=== PATIENT | male | born 1985 | race Caucasian/White ===

== ENCOUNTER 2016-12-16 19:24 | Inpatient (IN) ==
--- NOTE | 2016-12-16 19:31 | Emergency Department Note ---
Disposition Clinical Impression: RLQ abdominal pain, Crohn's colitis Disposition: Admitted As Inpatient Condition: Fair Time of Disposition: 21:43 Abdominal Pain HPI - General Chief Complaint: ED Abdominal Pain Stated Complaint: abdominal pain Time Seen by Provider: 12/16/16 19:30 Source: patient Mode of arrival: ambulatory Limitations: no limitations Nursing Notes Reviewed: Yes Vital Signs Reviewed: Yes - History of Present Illness HPI Narrative: 31-year-old male history of Crohn's disease, on no medications, presents complaint of right lower quadrant abdominal pain onset 1-2 weeks ago, pain is worsening for last few hours. Patient has history of Crohn's disease he chronically takes Percocet 5 every 6 hours. Patient states his pain is 8 out of 10, is crampy and achy. He has no associated hematochezia or hematemesis or melena. He has had nausea and vomiting. He denies diarrhea, but has been constipated for the last few days. He also states he has been off obstipated for a day. Pt Subjective Complaint: abdominal pain Onset (ago): hour(s) Location: RLQ Pain Severity: moderate Pain Scale: 8 Quality: cramping, aching Migration to: no migration Improves with: nothing Worsens with: vomiting Associated symptoms: Reports: nausea. Denies: vomiting, diarrhea - Related Data Previous Rx's Medication Instructions Recorded Ciprofloxacin [Cipro] 500 mg PO BID #20 tablet 03/21/16 OxyCODONE/APAP 5/325 [Percocet 1 each PO Q4HR PRN #14 tablet 03/21/16 5/325 MG] predniSONE [PredniSONE] 20 mg PO DAILY #18 tablet 07/08/16 Allergies Allergy/AdvReac Type Severity Reaction Status Date / Time Penicillins [PCN] Allergy Hives Verified 12/16/16 19:25 All systems ED: reviewed and negative except as stated. Review of Systems: As Per HPI Constitutional: Reports: chills. Denies: fever ENT ED: Denies: ear pain Cardiovascular: Denies: chest pain Respiratory: Denies: cough Gastrointestinal: Reports: abdominal pain, nausea, vomiting. Denies: diarrhea, hematemesis, melena, hematochezia Genitourinary: Denies: urgency, dysuria Musculoskeletal: Denies: back pain Integumentary: Denies: rash Neurological: Denies: headache Abdominal Pain PMH - Past Medical History Medical history: Reports: kidney stones, other (Crohn's) Male Surgical History: Reports: other Psychiatric history: Reports: no psych history - Social History Smoking status: Current every day smoker Alcohol use: Reports: none Drug use: Reports: none Physical Exam Constitutional: alert and oriented, in NAD, vital signs reviewed and wnl HEENT: NCAT, sclera anicteric Neck: normal inspection, neck is supple, trachea midline Resp: normal chest inspection, CTA bilaterally, no resp distress CV: RRR, no m/g/r GI: normal inspection, Soft, mod RLQ ttp, wiht rebound, no hepatosplenomegaly, BS x 4 quadrants, negative Niño's Sign, no tenderness at McBurney' point, Negative Rovsing's Back: normal inspection, negative CVA bilaterally, no tenderness to palpation Neuro: A&O3, no gross motor or sensory deficits bilaterally MSK: normal inspection, bilateral UE and LE with normal ROM Skin: No rashes, skin warm, dry, intact - General Limitations: no limitations General appearance: alert Course Course Narrative: 31-year-old male with history of Crohn's disease presents with about a week of right lower quadrant pain, is also had constipation and obstipation, given Crohn 's flare, we will give IV fluids, antiemetics, analgesics and check basic lab work as well as CT scan of abdomen. - Reevaluation(s) Reevaluation #1: Patient still with severe right lower quadrant pain moderate tenderness to palpation with rebound, patient does have concerning signs and symptoms for appendicitis however it has been about a week so they certainly be better by now , the patient had a CT scan but there was no evidence of the appendix on the CT scan, I called the radiologist and they stated that they could not visualize the appendix that they cannot say definitively that there was no appendicitis because of all the information in the distal ileum Time: 21:00 Reevaluation #2: Admitted to medicine Dr Hoffmann Time: 21:43 - Consultations Consultation #1: I discussed with Dr. Pitt the findings in the right lower quadrant, he recommended admission for abdominal pain, serial abdominal exams and surgical consultation as needed, if unable patient's pain under control, otherwise no obvious evidence of appendicitis likely not appendicitis at this time he will be available for consultation Time: 21:20 Vital Signs Temperature 97.8 F 12/16/16 19:25 Pulse Rate 100 12/16/16 19:25 Respiratory Rate 16 12/16/16 19:25 Blood Pressure 122/77 12/16/16 19:25 O2 Sat by Pulse Oximetry 96 12/16/16 19:25 Temperature 98.1 F 12/16/16 23:36 Pulse Rate 80 12/16/16 23:36 Respiratory Rate 16 12/16/16 23:36 Blood Pressure 109/70 12/16/16 23:36 O2 Sat by Pulse Oximetry 94 12/16/16 23:36 Oxygen Delivery Oxygen Delivery Room Air Abdominal Pain - Differential Diagnosis Differential Diagnosis: Likely: acute appendicitis, colonic obstruction, diverticulitis, diverticulosis, endometriosis, gastroenteritis, ischemic bowel - Medical Records Medical records reviewed: Yes I reviewed the patient's medical records. - Lab Data Lab results reviewed: Yes I reviewed the patient's lab results. Result diagrams: 12/16/16 20:05 12/16/16 20:05 Lab Results 12/16/16 12/16/16 12/16/16 Range/Units 19:47 20:05 20:05 WBC 11.2 H (4.3-11.1) K/mcL RBC 4.82 (4.19-5.50) M/mcL Hgb 11.8 L (12.9-16.9) g/dL Hct 37.5 (37.5-50.1) % MCV 77.8 L (83.0-100.0) fL MCH 24.5 L (28.0-33.3) pg MCHC 31.5 L (31.6-35.5) g/dL RDW 15.1 H (11.5-14.5) % Plt Count 411 H (140-400) K/mcL MPV 9.8 (9.4-12.4) fL Immature Gran % 0.4 (0-4) % Seg Neutrophils % 69.5 % Lymphocytes % 21.5 % Monocytes % 7.9 % Eosinophils % 0.4 % Basophils % 0.3 % Neutrophils # 7.8 (1.6-8.9) K/mcL Lymphocytes # 2.4 (0.6-4.6) K/mcL Monocytes # 0.9 (0.0-1.3) K/mcL Eosinophils # 0.0 (0.0-0.6) K/mcL Basophils # 0.0 (0.0-0.2) K/mcL Sodium 137 (136-145) mEq/L Potassium 4.3 (3.5-4.5) mEq/L Chloride 100 (98-109) mEq/L Carbon Dioxide 29 (19-29) mEq/L BUN 11 (8-26) mg/dL Creatinine 0.86 (0.72-1.25) mg/dL Est GFR ( Amer) > 60 (> 60) Est GFR (Non-Af Amer) > 60 (> 60) BUN/Creatinine Ratio 13 (6-26) Glucose 93 (70-99) mg/dL Calculated Osmolality 283 (280-300) Calcium 9.5 (8.6-10.8) mg/dL Total Bilirubin 0.4 (0.2-1.2) mg/dL Direct Bilirubin 0.2 (0.0-0.5) mg/dL Indirect Bilirubin 0.2 (0.0-1.2) mg/dL AST 7 (5-34) Units/L ALT 8 (0-55) Units/L Alkaline Phosphatase 77 (38-126) Units/L Serum Total Protein 7.5 (6.0-8.3) g/dL Albumin 3.0 L (3.5-5.0) g/dL Globulin 4.5 H (2.4-3.5) g/dL Albumin/Globulin Ratio 0.7 L (1.1-2.2) Lipase < 10 (8-78) Units/L Urine Color Coker A (Yellow) Urine Clarity Turbid A (Clear) Urine pH 6.0 (5.0-8.0) pH Units Ur Specific [place] > 1.030 H (1.010-1.025) Urine Protein 30 H (Neg-Trace) mg/dL Urine Glucose (UA) Normal (Normal) mg/dL Urine Ketones Trace H (Negative) mg/dL Urine Blood Small H (Negative) Urine Nitrite Negative (Negative) Urine Bilirubin Small H (Negative) Urine Urobilinogen Normal (Normal) mg/dL Ur Leukocyte Esterase Trace H (Negative) Urine Microscopic RBC 3-5 H (0-3) per hpf Urine Microscopic WBC 5-15 H (0-3) per hpf Ur Squamous Epith Cells Many H (None-Few) per lpf Calcium Oxalate Crystal Present Urine Bacteria Few (None-Few) per hpf Hyaline Casts Moderate H (None-Few) per lpf Urine Mucus Many H (Few) Ur Culture Indicated? YES A (NO) - Radiology Data Radiology results reviewed: Yes I reviewed the patient's radiology results. Abdomen/Pelvis CT 12/16/16 19:39 IMPRESSION: Diffuse wall thickening is noted along the distal/terminal ileum with surrounding inflammatory changes, mesenteric hyperemia, multiple mildly enlarged mesenteric lymph node and mild fluid/edema. Few of the bowel loops proximal to the area of inflammation demonstrate focal areas of dilatation. Overall appearance is similar to prior examination and again suggestive of active Crohn's disease. D/ / James Nassar MD / James Nassar MD Interpreting Provider: James Nassar MD Attestation Statement - Attestation Attestation: I examined this patient and my medical decision-making was reviewed with the Resident Physician. I agree with the documented findings, disposition and treatment plan as described except to the extent set forth below. Male patient with Crohn's disease. Not currently on long acting controller medications or immunosuppressants who presents with worsening abdominal pain. Findings of possible ileitis. The appendix is not visualized. Will admit for serial abdominal examinations. Discussed case with general surgery. I was suspicion for appendicitis however given poor visualization and surrounding inflammation we will admit for further evaluation and possible surgical consultation.
[2016-12-16] MEDS ORDERED: *HR* HYDROmorphone (PF) 1 MG/ML SYRINGE IVP ONE ×2 (19:38→20:43)
[2016-12-16] MEDS ORDERED: 0.9 % Sodium Chloride 1,000 ML IVC ONE (19:38)
[2016-12-16] MEDS ORDERED: Ondansetron 4 MG/2 ML VIAL IVP ONE ×2 (19:38→20:43)
[2016-12-16 19:59] LABS: Bilirubin,Urine Small (Negative); Blood,Urine Small (Negative); Clarity,Urine Turbid (Clear); Color,Urine Orange (Yellow); Glucose,Urine (UA) Normal (Normal); Ketones,Urine Trace mg/dL (Negative); Leukocyte Esterase,Urine Trace (Negative); Nitrite,Urine Negative (Negative); Protein,Urine 30 mg/dL (Neg-Trace); Specific Gravity,Urine > 1.030 (1.010-1.025); Urobilinogen,Urine Normal (Normal)
[2016-12-16 20:01] LABS: Hyaline Casts,Urine Moderate per lpf (None-Few); Squamous Epithelial Cell,Urine Many per lpf (None-Few)
[2016-12-16 20:12] LABS: Basophils % 0.3 %; Eosinophils % 0.4 %; Hematocrit 37.5 % (37.5-50.1); Hemoglobin 11.8 g/dL (12.9-16.9); Immature Granulocytes % 0.4 % (0-4); Lymphocytes # 2.4 K/mcL (0.6-4.6); Lymphocytes % 21.5 %; Mean Corpuscular HGB Conc 31.5 g/dL (31.6-35.5); Mean Corpuscular Hemoglobin 24.5 pg (28.0-33.3); Mean Corpuscular Volume 77.8 fL (83.0-100.0); Mean Platelet Volume 9.8 fL (9.4-12.4); Monocytes # 0.9 K/mcL (0.0-1.3); Monocytes % 7.9 %; Neutrophils # 7.8 K/mcL (1.6-8.9); Platelet Count 411 K/mcL (140-400); Red Blood Count 4.82 M/mcL (4.19-5.50); Red Cell Distribution Width 15.1 % (11.5-14.5); Segmented Neutrophils % 69.5 %
[2016-12-16 20:12] LABS: Bacteria,Urine Few per hpf (None-Few); Calcium Oxalate Crystals,Urine Present; Mucus,Urine Many (Few)
[2016-12-16 20:26] LABS: Alanine Aminotransferase 8 Units/L (0-55); Albumin/Globulin Ratio 0.7 (1.1-2.2); Alkaline Phosphatase 77 Units/L (38-126); Aspartate Amino Transferase 7 Units/L (5-34); BUN/Creatinine Ratio 13 (6-26); Bilirubin,Direct 0.2 mg/dL (0.0-0.5); Bilirubin,Indirect 0.2 mg/dL (0.0-1.2); Bilirubin,Total 0.4 mg/dL (0.2-1.2); Blood Urea Nitrogen 11 mg/dL (8-26); Calcium 9.5 mg/dL (8.6-10.8); Carbon Dioxide 29 mEq/L (19-29); Chloride 100 mEq/L (98-109); Globulin 4.5 g/dL (2.4-3.5); Glucose 93 mg/dL (70-99); Osmolality,Calculated 283 (280-300); Potassium 4.3 mEq/L (3.5-4.5); Sodium 137 mEq/L (136-145); Total Protein 7.5 g/dL (6.0-8.3); eGFR For African Americans > 60 (> 60); eGFR For Non-African Americans > 60 (> 60)
[2016-12-16 20:27] LABS: Lipase < 10 Units/L (8-78)
[2016-12-16] MEDS ORDERED: MetroNIDAZOLE 500 MG/100 ML 500 MG/100 ML BAG IVPB ONE (21:16)
[2016-12-16] MEDS ORDERED: *HR* HYDROcodone/Acet 5/325 mg TABLET PO PRN (21:40)
[2016-12-16] MEDS ORDERED: Acetaminophen 325 MG TABLET PO PRN (21:40)
[2016-12-16] MEDS ORDERED: *HR* Promethazine 25 MG/ML VIAL IVP PRN (21:40)
[2016-12-16] MEDS ORDERED: Naloxone 0.4 MG/ML INJ IVP PRN (21:40)
[2016-12-16] MEDS ORDERED: Ondansetron 4 MG/2 ML VIAL IVP PRN (21:40)
[2016-12-16] MEDS ORDERED: MethylPREDNISolone 40 MG/ML VIAL IVP ONE (21:45)
--- NOTE | 2016-12-16 22:20 | Internal Med History&Physical ---
Date of Encounter: 12/16/16 Time of Encounter: 21:30 Assessment and Plan (1) Acute Crohn's disease Current visit: Yes Status: Acute Will admit the pt into Med Surg Reviewed his CT of Abd - showed diffuse wall thickening is noted along the distal / terminal ileum with surrounding inflammatory changes, mesenteric hyperemia, multiple mildly enlarged lymph node and mild fluid edema - consistent with Crohn's flare up He is in severe pain requiring more frequent pain medication Keep him NPO except sips of water, ice chips IV fluids IV analgesics IV abx Cipro and Flagyl started him on IV steroids Solumedrol 40mg IV BID will consult GI in AM Cont supportive and symptomatic care Qualifiers: Qualified Code(s): K50.90 - Crohn's disease, unspecified, without complications (2) Abdominal pain Current visit: No Status: Acute see above Unable to get good view on Appendix in CT of Abd ER attending already talked to Surgeon Dr. Pitt, who reviewed the CT and does not think acute appendicitis cont supportive care for now Qualifiers: Abdominal location: lower abdomen, unspecified Qualified Code(s): R10.30 - Lower abdominal pain, unspecified (3) Tobacco dependence Current visit: Yes Status: Acute counseled to quit on nicotine patch Internal Medicine - H&P: HPI Chief complaint: Lower abdomen pain Admitted From: Emergency Dept Plans for Post Hospital Care: Home History of present illness: Mr. Sam is a 31 year old male with known history of Crohn's disease, on no medications currently presented to our ER with complaint of right lower quadrant abdominal pain onset 1-2 weeks ago, pain is worsening for last 2 days. Unable to eat anything due to severe pain. Patient has history of Crohn's disease he chronically takes Percocet 5 every 6 hours. Patient states his pain is 8 out of 10, is crampy and achy. He has no associated hematochezia or hematemesis or melena. He has had nausea and vomiting. He denies diarrhea, but has been constipated for the last few days. Past Med Surg Social Fam HX - Past Medical History Medical history: kidney stones, other (Crohn's) Psychiatric history: no psych history - Past Surgical History Surgical History: other (Endoscopies) - Social History Smoking Status: Current every day smoker Smokeless Tobacco Status: No Alcohol use: none Drug use: none - Additional Family History Additional family history: Family hsitory reviewed and non contribuitory to current problem. Internal Medicine - H&P: Meds Ciprofloxacin [Cipro] 500 mg PO BID #20 tablet 03/21/16 [Rx] OxyCODONE/APAP 5/325 [Percocet 5/325 MG] 1 each PO Q4HR PRN #14 tablet 03/21/16 [Rx] predniSONE [PredniSONE] 20 mg PO DAILY #18 tablet 07/08/16 [Rx] 3 Allergy/AdvReac Type Severity Reaction Status Date / Time Penicillins [PCN] Allergy Hives Verified 12/16/16 19:25 All Systems PM: A 10-system review of systems was performed and is negative for pertinent findings except as documented above in the HPI. Review of systems: All the systems are reviewed everything is benign except the systems and symptoms I mentioned in the history of present illness - Constitutional Vitals: Temp Pulse Resp BP Pulse Ox 97.8 F 82 16 109/69 95 12/16/16 19:25 12/16/16 21:55 12/16/16 21:55 12/16/16 21:55 12/16/16 21:55 General appearance: Present: mild distress (due to pain), A&O X 3, answers questions appropriately - Head Head exam: Present: atraumatic, normal inspection - Respiratory Respiratory exam: Present: CTAB. Absent: accessory muscle use, rales, rhonchi, wheezes - Cardiovascular Cardiovascular exam: Present: RRR, +S1, +S2. Absent: diastolic murmur, gallop, rubs, systolic murmur - GI/Abdominal GI/Abdominal exam: Present: hypoactive bowel sounds, soft, tenderness (moderate to severe tenderness in RLQ and brandon umbelical region). Absent: distended, rebound, rigid - Extremities Exam Extremities exam: Absent: calf tenderness, pedal edema, tenderness - Neurological Exam Neurological exam: Present: alert, oriented X3 - Psychiatric Psychiatric exam: Present: depressed - Skin Skin exam: Present: dry Internal Med - H&P Results - Labs CBC & Chem 7: 12/16/16 20:05 12/16/16 20:05
[2016-12-16] MEDS: *HR* HYDROmorphone (PF) 1 MG/ML SYRINGE IVP PRN (22:54)
[2016-12-16] MEDS: D5% in 0.45% NACL 1,000 ML IVC SCH (22:56)
[2016-12-16] MEDS: Nicotine 14 MG PATCH.TD24 TD SCH (22:56)
[2016-12-17] MEDS: *HR* HYDROmorphone (PF) 1 MG/ML SYRINGE IVP PRN ×2 (04:04→08:10)
[2016-12-17 04:08] LABS: Basophils % 0.1 %; Eosinophils % 0.1 %; Hematocrit 36.2 % (37.5-50.1); Hemoglobin 11.6 g/dL (12.9-16.9); Immature Granulocytes % 0.4 % (0-4); Lymphocytes % 7.7 %; Mean Corpuscular Hemoglobin 24.9 pg (28.0-33.3); Mean Corpuscular Volume 77.8 fL (83.0-100.0); Mean Platelet Volume 10.1 fL (9.4-12.4); Monocytes # 0.2 K/mcL (0.0-1.3); Monocytes % 1.6 %; Neutrophils # 12.1 K/mcL (1.6-8.9); Platelet Count 376 K/mcL (140-400); Red Blood Count 4.65 M/mcL (4.19-5.50); Red Cell Distribution Width 15.4 % (11.5-14.5); Segmented Neutrophils % 90.1 %
[2016-12-17 04:19] LABS: Alanine Aminotransferase 8 Units/L (0-55); Albumin 2.8 g/dL (3.5-5.0); Albumin/Globulin Ratio 0.6 (1.1-2.2); Alkaline Phosphatase 72 Units/L (38-126); Aspartate Amino Transferase 9 Units/L (5-34); BUN/Creatinine Ratio 13 (6-26); Bilirubin,Total 0.3 mg/dL (0.2-1.2); Blood Urea Nitrogen 11 mg/dL (8-26); Calcium 9.2 mg/dL (8.6-10.8); Carbon Dioxide 22 mEq/L (19-29); Chloride 104 mEq/L (98-109); Globulin 4.5 g/dL (2.4-3.5); Glucose 186 mg/dL (70-99); Osmolality,Calculated 282 (280-300); Potassium 4.6 mEq/L (3.5-4.5); Sodium 134 mEq/L (136-145); Total Protein 7.3 g/dL (6.0-8.3); eGFR For African Americans > 60 (> 60); eGFR For Non-African Americans > 60 (> 60)
[2016-12-17] MEDS ORDERED: MetroNIDAZOLE 500 MG/100 ML 500 MG/100 ML BAG IVPB SCH (06:00)
[2016-12-17] MEDS ORDERED: Famotidine 20 MG/2 ML VIAL IVP SCH (06:00)
[2016-12-17] MEDS: Nicotine 14 MG PATCH.TD24 TD SCH (07:44)
[2016-12-17] MEDS: D5% in 0.45% NACL 1,000 ML IVC SCH (10:15)
[2016-12-17 10:57] VITALS: BP 103/66
--- NOTE | 2016-12-17 11:55 | Internal Med Progress Note ---
Date of Encounter: 12/17/16 Time of Encounter: 11:53 - Assessment and plan (1) Acute Crohn's disease Current Visit: Yes Status: Acute Assessment and plan: On intravenous steroids and antibiotics. Gastroenterology has been consulted. However, patient reports that he has a family emergency and wishes to leave the hospital. He understands the risks of this decision but he says that he will get admitted if he gets sicker. He will be prescribed a short course of antibiotics and prednisone taper. Qualifiers: Digestive disease complication type: without complication Qualified Code(s) : K50.90 - Crohn's disease, unspecified, without complications (2) Abdominal pain Current Visit: Yes Status: Acute Qualifiers: Abdominal location: lower abdomen, unspecified Qualified Code(s): R10.30 - Lower abdominal pain, unspecified (3) Tobacco dependence Current Visit: Yes Status: Acute - Subjective Interval history: Patient is awake and alert. He reports that his pain is somewhat better but still present. Has not had any new episodes of nausea or vomiting. Did have a bowel movement today. It was mixed with blood. - Constitutional Vitals: Temp Pulse Resp BP Pulse Ox 97.6 F 67 18 103/66 98 12/17/16 10:56 12/17/16 10:56 12/17/16 10:56 12/17/16 10:56 12/17/16 10:56 General appearance: Present: cooperative, mild distress (due to pain), A&O X 3, answers questions appropriately - Respiratory Respiratory exam: Present: CTAB. Absent: accessory muscle use, rales, rhonchi, wheezes - Cardiovascular Cardiovascular exam: Present: RRR, +S1, +S2. Absent: diastolic murmur, gallop, rubs, systolic murmur - GI/Abdominal GI/Abdominal exam: Present: normal bowel sounds, soft, tenderness, no peritoneal signs. Absent: distended - Extremities Exam Extremities exam: Present: warm, radial pulses palpable and symmetrical. Absent : calf tenderness, cyanotic, pedal edema Internal Medicine: Result - Labs CBC & Chem 7: 12/17/16 03:42 12/17/16 03:42 Consult Discharge Plan - Plan Referrals: Albina Marroquin CNP [Primary Care Provider] - (1 week) Jud Pacheco MD [Partnered Physician] - (in 1 week) Prescriptions: Ciprofloxacin [Cipro] 500 mg PO BID #14 tablet metroNIDAZOLE [Flagyl] 500 mg PO TID #21 tablet predniSONE [PredniSONE] 60 mg PO DAILY #90 tablet
== END 2016-12-17 12:25 | disposition left against medical advice (07) | DRG 387 ==
LOC: EMEROO 19:24 → 3ANU 19:24 → SUATTDRO 21:57 → 3ANU 22:12
PROVIDERS: ADMIT Family Medicine; ATTEND Internal Medicine

== ENCOUNTER 2017-03-09 20:54 | Observation (INO) ==
[2017-03-09] MEDS: *HR* HYDROmorphone (PF) 1 MG/ML SYRINGE IVP PRN (21:51)
[2017-03-09] MEDS ORDERED: Ondansetron 4 MG/2 ML VIAL IVP PRN (22:28)
[2017-03-09] MEDS: 0.9 % Sodium Chloride 1,000 ML IVC SCH (23:05)
[2017-03-10] MEDS: *HR* HYDROmorphone (PF) 1 MG/ML SYRINGE IVP PRN ×8 (00:09→22:58)
[2017-03-10] MEDS: MetroNIDAZOLE 500 MG/100 ML 500 MG/100 ML BAG IVPB SCH ×3 (02:01→09:58)
[2017-03-10 05:20] LABS: Basophils % 0.3 %; Eosinophils # 0.1 K/mcL (0.0-0.6); Eosinophils % 0.7 %; Hematocrit 31.5 % (37.5-50.1); Immature Granulocytes % 0.4 % (0-4); Lymphocytes # 2.7 K/mcL (0.6-4.6); Lymphocytes % 24.2 %; Mean Corpuscular HGB Conc 31.7 g/dL (31.6-35.5); Mean Corpuscular Volume 78.8 fL (83.0-100.0); Mean Platelet Volume 10.3 fL (9.4-12.4); Monocytes % 9.3 %; Neutrophils # 7.3 K/mcL (1.6-8.9); Platelet Count 295 K/mcL (140-400); Segmented Neutrophils % 65.1 %
[2017-03-10 05:24] LABS: INR 1.2; Prothrombin Time 13.3 Seconds (9.4-12.1)
[2017-03-10 05:36] LABS: BUN/Creatinine Ratio 11 (6-26); Blood Urea Nitrogen 8 mg/dL (6-20); Calcium 8.5 mg/dL (8.6-10.3); Carbon Dioxide 26 mEq/L (23-29); Chloride 105 mEq/L (98-107); Glucose 84 mg/dL (70-105); Magnesium 1.5 mg/dL (1.6-2.6); Osmolality,Calculated 276 (280-300); Phosphorous 3.5 mg/dL (2.7-4.5); Potassium 4.1 mEq/L (3.5-5.1); Sodium 134 mEq/L (136-145); eGFR For African Americans > 60 (> 60); eGFR For Non-African Americans > 60 (> 60)
[2017-03-10] MEDS: Pantoprazole 40 MG VIAL IVP SCH (06:15)
[2017-03-10] MEDS ORDERED: Naloxone 0.4 MG/ML INJ IVP PRN (09:38)
[2017-03-10] MEDS ORDERED: *HR* Promethazine 25 MG/ML VIAL IVP PRN (09:38)
--- NOTE | 2017-03-10 09:54 | General Surg History&Physical ---
Date of Encounter: 03/10/17 Time of Encounter: 09:45 Assessment and Plan (1) Abdominal pain Current Visit: No Status: Acute The assessment and plan as outlined above was discussed with the patient and/or family members who expressed understanding and agreement. All questions were answered. prn pain control Qualifiers: Abdominal location: right lower quadrant Qualified Code(s): R10.31 - Right lower quadrant pain (2) Tobacco dependence Current Visit: No Status: Chronic The assessment and plan as outlined above was discussed with the patient and/or family members who expressed understanding and agreement. All questions were answered. ok for 7 mg nicotine patch (3) Acute Crohn's disease Current Visit: No Status: Chronic The assessment and plan as outlined above was discussed with the patient and/or family members who expressed understanding and agreement. All questions were answered. discussed with patient CT results and abdominal abscess wbc 11.6 on cipro/flagyl discussed with IR and they will plan to do an IR guided drain for the abscess once drain placed will start heparin sq consult to GI Qualifiers: Digestive disease complication type: with abscess Qualified Code(s): K50.914 - Crohn's disease, unspecified, with abscess (4) Abdominal abscess Current Visit: No Status: Acute The assessment and plan as outlined above was discussed with the patient and/or family members who expressed understanding and agreement. All questions were answered. planning IR drain (5) Leukocytosis Current Visit: Yes Status: Acute The assessment and plan as outlined above was discussed with the patient and/or family members who expressed understanding and agreement. All questions were answered. trend wbc, continue abx Qualifiers: Leukocytosis type: unspecified Qualified Code(s): D72.829 - Elevated white blood cell count, unspecified (6) Nausea and vomiting Current Visit: Yes Status: Acute The assessment and plan as outlined above was discussed with the patient and/or family members who expressed understanding and agreement. All questions were answered. prn zofran and promethazine Qualifiers: Vomiting type: unspecified Qualified Code(s): R11.2 - Nausea with vomiting , unspecified History of Present Illness Chief complaint: nausea/vomiting, abdominal pain HPI: Mr. Sam is a 31 year old male with a known history of Crohn's disease for the last 5 years. Patient was diagnosed with colonoscopy by Dr Pacheco. He has lost his insurance and is currently off any medication for his Crohns. He has been on prednisone in the past. He states his usual symptoms are crampy back pain, constipation and a history of melena. For the last two weeks he has been having RLQ pain which has increased in intensity for the last week. He has had nausea and vomiting, denies diarrhea. He is having pain with urination. No melena or hematochezia. No fevers, chills or night sweats. He presented to ED which showed a 9+ cm RLQ abscess adjacent to the TI Past Med Surg Social Fam HX - Past Medical History Source: patient Medical history: kidney stones, other (Crohns - TI) Psychiatric history: no psych history - Past Surgical History Surgical History: other (lithotripsy and colonoscopy) - Social History Smoking Status: Current every day smoker Smokeless Tobacco Status: No Alcohol use: none Drug use: none Current living situation: Home Activity Level: Independent ambulation - Family History Sister Living Status: Still Living Hx Family Cancer: Yes (BRCA stage 4) Medications and Allergies No Known Home Drugs 03/09/17 [History] 3 Allergy/AdvReac Type Severity Reaction Status Date / Time Penicillins [PCN] Allergy Hives Verified 12/16/16 19:25 Review of Systems All systems PM: reviewed and no additional remarkable complaints except as stated All systems PM: A 10-system review of systems was performed and is negative for pertinent findings except as documented above in the HPI. General Surgery Exam Initial Vital Signs Temp Pulse Resp BP Pulse Ox 100.3 F H 80 15 115/67 97 03/09/17 21:27 03/09/17 21:27 03/09/17 21:27 03/09/17 21:27 03/09/17 21:27 - General physical appearance well developed, well nourished, moderate pain - Eyes PERRL, normal ocular movement - ENT normal mucosa, normocephalic - Neck trachea midline - Respiratory normal respiratory effort, clear to auscultation - Cardiovascular Cardiovascular exam: Present: RRR, no murmurs/rubs/gallops - Abdomen Abdomen general surgery: Present: bowel sounds present, soft, tender (diffusely but worse at RLQ, no abdomimal wall erythema). Absent: distended, guarding, rebound - Integumentary Integumentary general surgery: Present: warm and dry, no abnormal pigmentation - Neurologic Present: CN 2-12 grossly intact - Musculoskeletal Present: normal posture - Psychiatric Psychiatric general surgery: Present: A&Ox3 Results - Labs 03/10/17 04:29 03/10/17 04:29 Abnormal lab results WBC 11.2 K/mcL (4.3-11.1) H 03/10/17 04:29 RBC 4.00 M/mcL (4.19-5.50) L 03/10/17 04:29 Hgb 10.0 g/dL (12.9-16.9) L 03/10/17 04:29 Hct 31.5 % (37.5-50.1) L 03/10/17 04:29 MCV 78.8 fL (83.0-100.0) L 03/10/17 04:29 MCH 25.0 pg (28.0-33.3) L 03/10/17 04:29 RDW 20.0 % (11.5-14.5) H 03/10/17 04:29 PT 13.3 Seconds (9.4-12.1) H 03/10/17 04:29 Sodium 134 mEq/L (136-145) L 03/10/17 04:29 POC Glucose 97 (58-89) H 03/10/17 05:50 Calculated Osmolality 276 (280-300) L 03/10/17 04:29 Calcium 8.5 mg/dL (8.6-10.3) L 03/10/17 04:29 Magnesium 1.5 mg/dL (1.6-2.6) L 03/10/17 04:29 Diabetes panel 03/10/17 Range/Units 04:29 Sodium 134 L (136-145) mEq/L Potassium 4.1 (3.5-5.1) mEq/L Chloride 105 (98-107) mEq/L Carbon Dioxide 26 (23-29) mEq/L BUN 8 (6-20) mg/dL Creatinine 0.74 (0.70-1.30) mg/dL Glucose 84 (70-105) mg/dL Calcium 8.5 L (8.6-10.3) mg/dL Calcium panel 03/10/17 Range/Units 04:29 Calcium 8.5 L (8.6-10.3) mg/dL Phosphorus 3.5 (2.7-4.5) mg/dL Pituitary panel 03/10/17 Range/Units 04:29 Sodium 134 L (136-145) mEq/L Potassium 4.1 (3.5-5.1) mEq/L Chloride 105 (98-107) mEq/L Carbon Dioxide 26 (23-29) mEq/L BUN 8 (6-20) mg/dL Creatinine 0.74 (0.70-1.30) mg/dL Glucose 84 (70-105) mg/dL Calcium 8.5 L (8.6-10.3) mg/dL Adrenal panel 03/10/17 Range/Units 04:29 Sodium 134 L (136-145) mEq/L Potassium 4.1 (3.5-5.1) mEq/L Chloride 105 (98-107) mEq/L Carbon Dioxide 26 (23-29) mEq/L BUN 8 (6-20) mg/dL Creatinine 0.74 (0.70-1.30) mg/dL Glucose 84 (70-105) mg/dL Calcium 8.5 L (8.6-10.3) mg/dL All other labs normal. - Imaging CT scan - abdomen: report reviewed, image reviewed CT scan - pelvis: report reviewed, image reviewed
[2017-03-10] MEDS: 0.9 % Sodium Chloride 1,000 ML IVC SCH ×2 (13:05→23:03)
--- NOTE | 2017-03-10 14:55 | IR Procedure Note ---
Date of procedure: 03/10/17 Consent Obtained: Written consent Timeout: Correct patient and procedure verified, Correct site verified, Time out performed, Skin prep completed Local anesthetic: Lidocaine 1% Indications: RLQ abscess, h/o Chrons dz Procedure Performed: CT guided drain placement Was there an therapeutic recreation assistant present: No Site/Technique: RLQ, 14fr drain placed Results/Findings: 80ml of pus removed. Sample sent to lab. Estimated blood loss (cc): 1 Complications: None; Tolerated procedure well Post Procedure Treatment Plan: Monitoring in VIR Specimen: Sent to lab.
[2017-03-10] MEDS: *HR* Heparin 5,000 UNIT/ML VIAL SQ SCH (18:18)
[2017-03-11] MEDS: MetroNIDAZOLE 500 MG/100 ML 500 MG/100 ML BAG IVPB SCH ×2 (01:37→08:41)
[2017-03-11] MEDS: *HR* HYDROmorphone (PF) 1 MG/ML SYRINGE IVP PRN ×3 (01:41→08:41)
[2017-03-11 04:16] LABS: Basophils % 0.5 %; Eosinophils # 0.1 K/mcL (0.0-0.6); Eosinophils % 1.3 %; Hematocrit 30.2 % (37.5-50.1); Hemoglobin 9.5 g/dL (12.9-16.9); Immature Granulocytes % 0.3 % (0-4); Lymphocytes # 2.7 K/mcL (0.6-4.6); Lymphocytes % 42.5 %; Mean Corpuscular HGB Conc 31.5 g/dL (31.6-35.5); Mean Corpuscular Hemoglobin 24.7 pg (28.0-33.3); Mean Corpuscular Volume 78.4 fL (83.0-100.0); Monocytes # 0.6 K/mcL (0.0-1.3); Monocytes % 9.8 %; Neutrophils # 2.9 K/mcL (1.6-8.9); Platelet Count 302 K/mcL (140-400); Red Blood Count 3.85 M/mcL (4.19-5.50); Red Cell Distribution Width 19.5 % (11.5-14.5); Segmented Neutrophils % 45.6 %
[2017-03-11 04:35] LABS: BUN/Creatinine Ratio 15 (6-26); Blood Urea Nitrogen 10 mg/dL (6-20); Calcium 8.6 mg/dL (8.6-10.3); Carbon Dioxide 25 mEq/L (23-29); Chloride 105 mEq/L (98-107); Glucose 89 mg/dL (70-105); Osmolality,Calculated 277 (280-300); Phosphorous 4.2 mg/dL (2.7-4.5); Potassium 4.3 mEq/L (3.5-5.1); Sodium 134 mEq/L (136-145); eGFR For African Americans > 60 (> 60); eGFR For Non-African Americans > 60 (> 60)
[2017-03-11] MEDS: Pantoprazole 40 MG VIAL IVP SCH (05:01)
[2017-03-11] MEDS: *HR* Heparin 5,000 UNIT/ML VIAL SQ SCH (05:02)
[2017-03-11 11:05] VITALS: BP 103/65
--- NOTE | 2017-03-11 11:19 | General Surgery Progress Note ---
Date of Encounter: 03/11/17 Time of Encounter: 11:16 - Assessment and Plan (1) Acute Crohn's disease Current Visit: No Status: Chronic Qualifiers: Digestive disease complication type: with abscess Qualified Code(s): K50.914 - Crohn's disease, unspecified, with abscess (2) Abdominal abscess Current Visit: No Status: Acute Subjective Patient reports: no new complaints, feels better, still having pain, pain is less, tolerating liquids well, afebrile Objective Vital Signs - Last 8 Hours Temp Pulse Resp BP Pulse Ox 03/11/17 10:51 98.2 F 58 15 103/65 99 03/11/17 06:57 97.8 F 50 15 110/69 97 03/11/17 03:23 98.0 F 56 14 89/54 97 Intake and Output 03/10/17 03/11/17 03/11/17 23:59 07:59 15:59 Intake Total 1540 / 1540 100 / 100 0 / 0 Output Total 1170 / 1170 830 / 830 520 / 520 Balance 370 / 370 -730 / -730 -520 / -520 Intake: IV Fluids 1300 / 1300 100 / 100 0.9 % Sodium Chloride 1,000 ML 1000 / 1000 @ 110 mls/hr IVC .Q9H6M [facility] Rx# :[id number] Cipro Premix 400 MG/200 ML 400 200 / 200 mg In 200 ml @ 200 mls/hr IVPB Q12HR [facility] Rx#:[id number] Flagyl Premix 500 MG/100 ML 500 100 / 100 100 / 100 mg In 100 ml @ 100 mls/hr IVPB Q8H [facility] Rx#:[id number] Oral 240 / 240 0 / 0 0 / 0 Output: Urine 1120 / 1120 800 / 800 500 / 500 Wound Drainage 50 / 50 30 / 30 20 / 20 Right Lower Abdomen 50 / 50 30 / 30 20 / 20 Other: Meal Dinner Breakfast Percent of Meal Consumed 100% 5% Weight 80.3 kg Blood Glucose* 102 Patient Weight 03/11/17 23:59 Weight 80.3 kg - General physical appearance well developed, well nourished, no distress - Eyes normal ocular movement - ENT normocephalic - Respiratory normal expansion, normal respiratory effort - Cardiovascular Cardiovascular exam: Present: RRR - Abdomen Abdomen: Present: soft, non tender Abdominal Tenderness: RLQ (drain in place; no appreciated erythema; appropriatley tender to palpation at insertion site) - Neurologic CN 2-12 grossly intact - Psychiatric oriented to time, oriented to person, oriented to place - Labs 03/11/17 03:51 03/11/17 03:51 Diabetes panel 03/11/17 Range/Units 03:51 Sodium 134 L (136-145) mEq/L Potassium 4.3 (3.5-5.1) mEq/L Chloride 105 (98-107) mEq/L Carbon Dioxide 25 (23-29) mEq/L BUN 10 (6-20) mg/dL Creatinine 0.65 L (0.70-1.30) mg/dL Glucose 89 (70-105) mg/dL Calcium 8.6 (8.6-10.3) mg/dL Calcium panel 03/11/17 Range/Units 03:51 Calcium 8.6 (8.6-10.3) mg/dL Phosphorus 4.2 (2.7-4.5) mg/dL Pituitary panel 03/11/17 Range/Units 03:51 Sodium 134 L (136-145) mEq/L Potassium 4.3 (3.5-5.1) mEq/L Chloride 105 (98-107) mEq/L Carbon Dioxide 25 (23-29) mEq/L BUN 10 (6-20) mg/dL Creatinine 0.65 L (0.70-1.30) mg/dL Glucose 89 (70-105) mg/dL Calcium 8.6 (8.6-10.3) mg/dL Adrenal panel 03/11/17 Range/Units 03:51 Sodium 134 L (136-145) mEq/L Potassium 4.3 (3.5-5.1) mEq/L Chloride 105 (98-107) mEq/L Carbon Dioxide 25 (23-29) mEq/L BUN 10 (6-20) mg/dL Creatinine 0.65 L (0.70-1.30) mg/dL Glucose 89 (70-105) mg/dL Calcium 8.6 (8.6-10.3) mg/dL
--- NOTE | 2017-03-11 11:24 | Discharge Summary ---
Date of Encounter: 03/11/17 Time of Encounter: 11:19 - Discharge Diagnosis (1) Acute Crohn's disease Priority: Primary Status: Chronic Comments: 31M with crohn's disease complicated by abscess s/p IR drainage; afebrile; normal white count; only tender at drain insertion site; only purulent- sanguinous draiange; - SLIV - advance diet as tolerated - change to PO abx: levaquin and flagyl x 13 days - follow up in clinic in 2 weeks with GI (gul) and Dr. Ellison Qualifiers: Digestive disease complication type: with abscess Qualified Code(s): K50.914 - Crohn's disease, unspecified, with abscess (2) Abdominal abscess Priority: Primary Status: Acute Comments: see above - Discharge Medications Prescriptions: levoFLOXacin [Levaquin] 750 mg PO PREOP 13 Days #13 tablet metroNIDAZOLE [Flagyl] 500 mg PO TID 13 Days #39 tablet Home Medications: levoFLOXacin [Levaquin] 750 mg PO PREOP 13 Days #13 tablet 03/11/17 [Rx] metroNIDAZOLE [Flagyl] 500 mg PO TID 13 Days #39 tablet 03/11/17 [Rx] Allergies/Adverse Reactions: 3 Allergy/AdvReac Type Severity Reaction Status Date / Time Penicillins [PCN] Allergy Hives Verified 12/16/16 19:25 General Surgery Exam Initial Vital Signs Temp Pulse Resp BP Pulse Ox 100.3 F H 80 15 115/67 97 03/09/17 21:27 03/09/17 21:27 03/09/17 21:27 03/09/17 21:27 03/09/17 21:27 - General physical appearance well developed, well nourished, no distress - Eyes normal ocular movement - Neck no lymphadectomy - Respiratory normal expansion, normal respiratory effort - Cardiovascular Cardiovascular exam: Present: RRR - Abdomen Abdomen general surgery: Present: soft, non tender Abdominal Tenderness: Present: RLQ (TTP at insertion site; no appreciated erythema) - Integumentary Integumentary general surgery: Present: warm and dry - Neurologic Present: CN 2-12 grossly intact - Musculoskeletal Present: other (FROM in UE/LE bilaterally) - Psychiatric Psychiatric general surgery: Present: A&Ox3 Date of admission: 03/09/17 21:05 Consults: 03/10/17 09:43 Consult to Interventional Radiology [CONS] Stat Consulting Provider: Radiology Interventional Cols Reason for Consult: abdominal/wall abscess Time Notified: 09:46 Call Completed: Yes 03/10/17 09:57 Consult to Gastroenterology [CONS] Routine Consulting Provider: Gastroenterology Jaida Reason for Consult: medical management crohns Time Notified: 09:58 Call Completed: Yes Discharging clinician: Alberto Pitt Anticipated date of discharge: 03/11/17 - Patient Status Disposition: Home, Self-Care Condition: Good Overall status at discharge: patient is progressing back to baseline - Discharge Instructions Follow Up With: Lea Ellison MD [Partnered Physician] - 03/22/17 Jud Pacheco MD [Partnered Physician] - 03/22/17 Additional Instructions: if you begin to experience fevers, chills, nausea, vomiting, redness at drain site, chest pain, shortness of breath, dizziness, significant abdominal pain, or any symptoms you feel warrant evaluation please call the office, report to [facility] urgent care of ED, or come to [place] [facility] make your appointments for [address] Ellison and Tara. - Diet and Activity Activity: resume usual activities as tolerated Diet: advance to your usual diet - Hospital Course Hospital course: Mr. Sam is a 31 year old male - Time Spent with Patient Total time spent providing and/or coordinating discharge services: Greater than 30 minutes Labs on day of discharge: Labs from last 24 hours 03/11/17 03/11/17 03/10/17 03:51 03:51 17:35 WBC 6.4 RBC 3.85 L Hgb 9.5 L Hct 30.2 L MCV 78.4 L MCH 24.7 L MCHC 31.5 L RDW 19.5 H Plt Count 302 MPV 10.0 Immature Gran % 0.3 Seg Neutrophils % 45.6 Lymphocytes % 42.5 Monocytes % 9.8 Eosinophils % 1.3 Basophils % 0.5 Neutrophils # 2.9 Lymphocytes # 2.7 Monocytes # 0.6 Eosinophils # 0.1 Basophils # 0.0 Sodium 134 L Potassium 4.3 Chloride 105 Carbon Dioxide 25 BUN 10 Creatinine 0.65 L Est GFR ( Amer) > 60 Est GFR (Non-Af Amer) > 60 BUN/Creatinine Ratio 15 Glucose 89 POC Glucose 102 H Calculated Osmolality 277 L Calcium 8.6 Phosphorus 4.2 Magnesium 2.0 03/10/17 12:11 WBC RBC Hgb Hct MCV MCH MCHC RDW Plt Count MPV Immature Gran % Seg Neutrophils % Lymphocytes % Monocytes % Eosinophils % Basophils % Neutrophils # Lymphocytes # Monocytes # Eosinophils # Basophils # Sodium Potassium Chloride Carbon Dioxide BUN Creatinine Est GFR ( Amer) Est GFR (Non-Af Amer) BUN/Creatinine Ratio Glucose POC Glucose 87 Calculated Osmolality Calcium Phosphorus Magnesium Preliminary micro results at discharge 03/10/17 14:45 Body Fluid Culture - Preliminary Peritoneal Fluid
--- NOTE | 2017-03-12 10:52 | Event Note ---
Date of Encounter: 03/12/17 Time of Encounter: 10:50 Infection control report with the results of peritoneal Gram stain. Escherichia coli resistant to Levaquin. Patient discharged on Levaquin. Information faxed to discharging provider Dr. Pitt
== END 2017-03-11 13:20 | disposition home or self-care (01) ==
LOC: 3ANU
PROVIDERS: ADMIT Surgery; ATTEND Surgery
PROC: IRDRAIN (2017-03-10 13:55)

== ENCOUNTER 2017-05-18 11:30 | Inpatient (IN) ==
[2017-05-18] MEDS ORDERED: Lidocaine -MPF 1% 2 ML VIAL INFILT ONE (12:19)
[2017-05-18] MEDS ORDERED: D10% in Water 500 ML IVC PRN (12:57)
[2017-05-18 13:39] LABS: Basophils % 0.3 %; Eosinophils % 0.1 %; Hematocrit 35.9 % (37.5-50.1); Hemoglobin 11.2 g/dL (12.9-16.9); Immature Granulocytes % 0.6 % (0-4); Lymphocytes # 1.2 K/mcL (0.6-4.6); Lymphocytes % 12.9 %; Mean Corpuscular HGB Conc 31.2 g/dL (31.6-35.5); Mean Corpuscular Hemoglobin 23.7 pg (28.0-33.3); Mean Corpuscular Volume 75.9 fL (83.0-100.0); Mean Platelet Volume 9.6 fL (9.4-12.4); Monocytes # 0.6 K/mcL (0.0-1.3); Monocytes % 6.2 %; Neutrophils # 7.3 K/mcL (1.6-8.9); Nucleated Red Blood Cells 0.2 /100 WBC (0); Platelet Count 432 K/mcL (140-400); Red Blood Count 4.73 M/mcL (4.19-5.50); Red Cell Distribution Width 15.2 % (11.5-14.5); Segmented Neutrophils % 79.9 %
[2017-05-18 13:55] LABS: Phosphorous 3.5 mg/dL (2.7-4.5)
[2017-05-18 13:56] LABS: BUN/Creatinine Ratio 14 (6-26); Blood Urea Nitrogen 11 mg/dL (6-20); Calcium 9.1 mg/dL (8.6-10.3); Carbon Dioxide 26 mEq/L (23-29); Chloride 104 mEq/L (98-107); Glucose 88 mg/dL (70-105); Osmolality,Calculated 277 (280-300); Potassium 4.2 mEq/L (3.5-5.1); Sodium 134 mEq/L (136-145); eGFR For African Americans > 60 (> 60); eGFR For Non-African Americans > 60 (> 60)
[2017-05-18] MEDS ORDERED: Acetaminophen 325 MG TABLET PO PRN (13:59)
--- NOTE | 2017-05-18 14:21 | General Surg History&Physical ---
<Kateryna Carroll - Last Filed: 05/18/17 14:41> Date of Encounter: 05/18/17 Time of Encounter: 14:12 Assessment and Plan (1) Crohn's disease with abscess Current Visit: Yes Status: Acute The assessment and plan as outlined above was discussed with the patient and/or family members who expressed understanding and agreement. All questions were answered. Admit to the hospital for surgical preparation for planned diagnostic laparoscopy, possible robotic ileocecectomy, possible open with Dr. Ellison on 02/2018. Continue IV Cipro and Flagyl PICC TPN G.I. and DVT prophylaxis supportive care and discomfort management incentive spirometry and PRN duonebs. Will change to schedule duonebs in the preoperative setting on Sunday. Regular diet and protein supplementation, NPO after midnight on Sunday for surgery. PRN antiemetics intra-abdominal abscess pigtail drain care: do not flush drain. Keep MILAD bulb to suction. Accurate I&O ambulate in halls at least TID Qualifiers: Gastrointestinal tract location: unspecified location Qualified Code(s): K50.914 - Crohn's disease, unspecified, with abscess (2) Severe protein-calorie malnutrition Current Visit: Yes Status: Acute The assessment and plan as outlined above was discussed with the patient and/or family members who expressed understanding and agreement. All questions were answered. PICC TPN Nutritional supplements Consult dietary weight loss since 05/15/2016 noted approximately 2 1/2 kg and a 27 kg gram weight loss since March 2016 (3) Tobacco dependence Current Visit: Yes Status: Chronic The assessment and plan as outlined above was discussed with the patient and/or family members who expressed understanding and agreement. All questions were answered. Smoking cessation encouraged incentive spirometry breathing treatments (4) Nausea and vomiting Current Visit: No Status: Acute The assessment and plan as outlined above was discussed with the patient and/or family members who expressed understanding and agreement. All questions were answered. See assessment and plan above Qualifiers: Vomiting type: unspecified Vomiting Intractability: unspecified Qualified Code(s): R11.2 - Nausea with vomiting, unspecified History of Present Illness Chief complaint: abdominal pain, weight loss, nausea, draining pus from abdomen HPI: Mr. Sam is a 31 year old male has a past medical history of kidney stones, Crohn's disease, TK D, intra-abdominal abscess, colonoscopy 2013, kidney stones in 2014, abdominal abscess with interventional radiology guided drain placement 02/2017. He has a smoking history of half pack per day for 9 years, denies alcohol or illicit drug use. He presented to the hospital as a direct admission for surgical preparation for upcoming planned diagnostic laparoscopy, possible robotic ileocecectomy, possible open with Dr. Ellison. Patient has a long-standing history of nonadherence to the medical regimen and ability to make follow-up appointments due to social situations (i.e. his mother is the person responsible for getting him to and from appointments as he does not drive, and she also cares for her daughter who has stage IV metastatic breast cancer which requires several trips a week to the [facility] in addition to caring for her grandchildren). He He saw Dr. Ellison on 04/27/2017 at which time he was noted to show for follow-up for his Crohn's abscess/drain placement. At that time he complained of continued abdominal pain and stated he was having a Crohn's flare. He had not tried to make it to the recommend G.I. appointments stating that he had just gotten his insurance. He states he' s also was having intermittent nausea without emesis, no appetite, weight loss of which he was unable to quantify, and stated he emptied the drain at least twice daily, did not measure it each time but reported cloudy Salas and foul- smelling drainage. He was noted to have made a trip to the emergency department on 04/19/2017 which showed the abdominal wall abscess was significantly smaller after drain placement. At that appointment he was again recommended to restart Bactrim, have follow-up labs in a small bowel follow- through with [facility] and made a referral to G.I. In follow-up, he saw Dr. Bravo on 05/11/2017 at which time he was noted to have seen G.I. who started him on Flagyl, and noted that since taking the antibiotics his drainage had decreased. He was recommended to present to the hospital on May 18 in the a.m. for direct admission to have a PIC line placed, start TPN for his significant weight loss and malnutrition, and undergo surgical procedure as detailed above on May 21. Presently, he endorses lack of appetite, weight loss, remains unable to quantify , nausea, vomiting, abdominal pain in the low abdomen worse with activity and related to the drain, chronic sharp stabbing abdominal pain which he relates to his Crohn's disease, generalized fatigue, and drainage in his pigtail drain of approximately "1 to 2 balls of pus" daily. He denies headache, dizziness, lightheadedness, syncope, near syncope, fever, chills, diarrhea, constipation, or urinary symptoms. Past Med Surg Social Fam HX - Past Medical History Source: patient, old records reviewed Medical history: GERD, kidney stones, other (Crohn's disease and intra- abdominal abscess) Psychiatric history: no psych history - Past Surgical History Surgical History: other (Intra-abdominal abscess drain placement 2017, kidney stone) - Social History Smoking Status: Current every day smoker Packs per day: 1/2 pack/day Smokeless Tobacco Status: No Alcohol use: none Drug use: none Occupational status: unemployed Current living situation: With Family Activity Level: Independent ambulation Recent Out of Country Travel Within the Last 8 Weeks: No Exposure or Possible Exposure to Illness During Travel: No - Family History Sister Living Status: Still Living Hx Family Cancer: Yes (BRCA stage 4) Medications and Allergies Ciprofloxacin [Cipro] 500 mg PO BID 05/18/17 [History] metroNIDAZOLE [Flagyl] 500 mg PO BID 05/18/17 [History] 3 Allergy/AdvReac Type Severity Reaction Status Date / Time NSAIDS (Non-Steroidal Allergy Severe Abdominal Verified 05/19/17 10:08 Anti-Inflamma Pain Penicillins [PCN] Allergy Hives Verified 05/18/17 12:07 Review of Systems All systems PM: reviewed and no additional remarkable complaints except as stated All systems PM: The remainder of the systems were reviewed and are negative General Surgery Exam Initial Vital Signs Temp Pulse Resp BP Pulse Ox 98.9 F 93 16 95/60 99 05/18/17 11:50 05/18/17 11:50 05/18/17 11:50 05/18/17 11:50 05/18/17 11:50 VITAL SIGNS: Reviewed. See [facility] GENERAL: In no apparent distress. Resting with eyes closed upon my entry of the room. HEENT: Normocephalic, atraumatic, pupils are equal and reactive, extraocular motions intact, oropharynx is pink and moist, there is no neck adenopathy or JVD noted. CHEST/RESPIRATORY: The thorax is free from signs of trauma. Lung sounds: clear to auscultation, normal respiratory effort CARDIAC: Regular rate and rhythm. Normal S1 and S2, without murmurs, gallops, or rubs. VASCULAR: No Edema. 2+ peripheral pulses. ABDOMEN: soft, tender diffusely, MILAD pigtail in place with moderate amount of purulent foul-smelling drainage. There are no signs of trauma. Normoactive bowel sounds. MUSCULOSKELETAL: Good range of motion of all major joints. Extremities without clubbing, cyanosis or edema. NEUROLOGIC EXAM: Alert and oriented x 3. Speech normal. Follows commands. PSYCHIATRIC: Mood normal. SKIN: No rash or lesions. Results - Labs 05/18/17 13:11 05/18/17 13:11 Abnormal lab results Hgb 11.2 g/dL (12.9-16.9) L 05/18/17 13:11 Hct 35.9 % (37.5-50.1) L 05/18/17 13:11 MCV 75.9 fL (83.0-100.0) L 05/18/17 13:11 MCH 23.7 pg (28.0-33.3) L 05/18/17 13:11 MCHC 31.2 g/dL (31.6-35.5) L 05/18/17 13:11 RDW 15.2 % (11.5-14.5) H 05/18/17 13:11 Plt Count 432 K/mcL (140-400) H 05/18/17 13:11 Nucleated RBCs/100 WBC 0.2 /100 WBC (0) H 05/18/17 13:11 Sodium 134 mEq/L (136-145) L 05/18/17 13:11 Calculated Osmolality 277 (280-300) L 05/18/17 13:11 Prealbumin 13.8 mg/dL (17.0-34.0) L 05/18/17 13:11 Diabetes panel 05/18/17 Range/Units 13:11 Sodium 134 L (136-145) mEq/L Potassium 4.2 (3.5-5.1) mEq/L Chloride 104 (98-107) mEq/L Carbon Dioxide 26 (23-29) mEq/L BUN 11 (6-20) mg/dL Creatinine 0.76 (0.70-1.30) mg/dL Glucose 88 (70-105) mg/dL Calcium 9.1 (8.6-10.3) mg/dL Calcium panel 05/18/17 05/18/17 Range/Units 13:11 13:11 Calcium 9.1 (8.6-10.3) mg/dL Phosphorus 3.5 (2.7-4.5) mg/dL Pituitary panel 05/18/17 Range/Units 13:11 Sodium 134 L (136-145) mEq/L Potassium 4.2 (3.5-5.1) mEq/L Chloride 104 (98-107) mEq/L Carbon Dioxide 26 (23-29) mEq/L BUN 11 (6-20) mg/dL Creatinine 0.76 (0.70-1.30) mg/dL Glucose 88 (70-105) mg/dL Calcium 9.1 (8.6-10.3) mg/dL Adrenal panel 05/18/17 Range/Units 13:11 Sodium 134 L (136-145) mEq/L Potassium 4.2 (3.5-5.1) mEq/L Chloride 104 (98-107) mEq/L Carbon Dioxide 26 (23-29) mEq/L BUN 11 (6-20) mg/dL Creatinine 0.76 (0.70-1.30) mg/dL Glucose 88 (70-105) mg/dL Calcium 9.1 (8.6-10.3) mg/dL All other labs normal. <Lea Ellison - Last Filed: 05/19/17 15:51> Date of Encounter: 05/18/17 Assessment and Plan (1) Crohn's disease with abscess Current Visit: Yes Status: Chronic The assessment and plan as outlined above was discussed with the patient and/or family members who expressed understanding and agreement. All questions were answered. will continue abx regular diet then bowel prep on sunday with clears plan OR Sunday start PICC/TPN prn pain control prn antiemetics Qualifiers: Gastrointestinal tract location: unspecified location Qualified Code(s): K50.914 - Crohn's disease, unspecified, with abscess (2) Severe protein-calorie malnutrition Current Visit: Yes Status: Chronic The assessment and plan as outlined above was discussed with the patient and/or family members who expressed understanding and agreement. All questions were answered. start TPN (3) Tobacco dependence Current Visit: Yes Status: Chronic The assessment and plan as outlined above was discussed with the patient and/or family members who expressed understanding and agreement. All questions were answered. (4) Abdominal pain Current Visit: No Status: Acute The assessment and plan as outlined above was discussed with the patient and/or family members who expressed understanding and agreement. All questions were answered. prn pain control no NSAIDS as pt has crohns Qualifiers: Abdominal location: right lower quadrant Qualified Code(s): R10.31 - Right lower quadrant pain (5) Nausea and vomiting Current Visit: No Status: Acute The assessment and plan as outlined above was discussed with the patient and/or family members who expressed understanding and agreement. All questions were answered. prn antiemetics Qualifiers: Vomiting type: unspecified Vomiting Intractability: unspecified Qualified Code(s): R11.2 - Nausea with vomiting, unspecified History of Present Illness HPI: Mr. Sam is a 31 year old male Past Med Surg Social Fam HX - Past Medical History Medical history: other Review of Systems All systems PM: The remainder of the systems were reviewed and are negative General Surgery Exam Initial Vital Signs Temp Pulse Resp BP Pulse Ox 98.9 F 93 16 95/60 99 05/18/17 11:50 05/18/17 11:50 05/18/17 11:50 05/18/17 11:50 05/18/17 11:50 - General physical appearance well developed, moderate distress, moderate pain, cachectic, chronically ill - Eyes PERRL, normal ocular movement - ENT normal mucosa, normocephalic - Neck trachea midline - Respiratory normal expansion, clear to auscultation - Cardiovascular Cardiovascular exam: Present: RRR - Abdomen Abdomen general surgery: Present: bowel sounds present, soft, tender. Absent: distended, guarding, rebound Abdominal Tenderness: Present: RLQ - Integumentary Integumentary general surgery: Present: warm and dry, no abnormal pigmentation - Neurologic Present: CN 2-12 grossly intact - Musculoskeletal Present: normal gait, normal posture - Psychiatric Psychiatric general surgery: Present: A&Ox3, speech is normal Results - Labs 05/18/17 13:11 05/19/17 03:30 Abnormal lab results Hgb 11.2 g/dL (12.9-16.9) L 05/18/17 13:11 Hct 35.9 % (37.5-50.1) L 05/18/17 13:11 MCV 75.9 fL (83.0-100.0) L 05/18/17 13:11 MCH 23.7 pg (28.0-33.3) L 05/18/17 13:11 MCHC 31.2 g/dL (31.6-35.5) L 05/18/17 13:11 RDW 15.2 % (11.5-14.5) H 05/18/17 13:11 Plt Count 432 K/mcL (140-400) H 05/18/17 13:11 Nucleated RBCs/100 WBC 0.2 /100 WBC (0) H 05/18/17 13:11 Creatinine 0.67 mg/dL (0.70-1.30) L 05/19/17 03:30 POC Glucose 120 (58-89) H 05/19/17 12:00 Prealbumin 13.8 mg/dL (17.0-34.0) L 05/18/17 13:11 Diabetes panel 05/19/17 Range/Units 03:30 Sodium 136 (136-145) mEq/L Potassium 4.2 (3.5-5.1) mEq/L Chloride 107 (98-107) mEq/L Carbon Dioxide 26 (23-29) mEq/L BUN 10 (6-20) mg/dL Creatinine 0.67 L (0.70-1.30) mg/dL Glucose 102 (70-105) mg/dL Calcium 9.1 (8.6-10.3) mg/dL Triglycerides 74 (< 150) mg/dL Calcium panel 05/19/17 Range/Units 03:30 Calcium 9.1 (8.6-10.3) mg/dL Phosphorus 3.9 (2.7-4.5) mg/dL Pituitary panel 05/19/17 Range/Units 03:30 Sodium 136 (136-145) mEq/L Potassium 4.2 (3.5-5.1) mEq/L Chloride 107 (98-107) mEq/L Carbon Dioxide 26 (23-29) mEq/L BUN 10 (6-20) mg/dL Creatinine 0.67 L (0.70-1.30) mg/dL Glucose 102 (70-105) mg/dL Calcium 9.1 (8.6-10.3) mg/dL Adrenal panel 05/19/17 Range/Units 03:30 Sodium 136 (136-145) mEq/L Potassium 4.2 (3.5-5.1) mEq/L Chloride 107 (98-107) mEq/L Carbon Dioxide 26 (23-29) mEq/L BUN 10 (6-20) mg/dL Creatinine 0.67 L (0.70-1.30) mg/dL Glucose 102 (70-105) mg/dL Calcium 9.1 (8.6-10.3) mg/dL All other labs normal. - Attending Attestation I have personally performed a face to face evaluation on this patient. I have reviewed and agree with the care plan. History and Exam by me shows:
[2017-05-18] MEDS ORDERED: Ipratropium/Albuterol Neb 3 ML IH PRN (14:24)
[2017-05-18] MEDS ORDERED: Ibuprofen 600 MG TABLET PO PRN (14:39)
[2017-05-18] MEDS: MetroNIDAZOLE 500 MG/100 ML 500 MG/100 ML BAG IVPB SCH ×2 (15:10→21:12)
[2017-05-18] MEDS: *HR* HYDROcodone/Acet 7.5/325 mg TABLET PO PRN ×2 (15:10→21:12)
[2017-05-18] MEDS ORDERED: Clinimix E 5%-15% SOLUTION 2,000 ML with MVI, adult with vitamin K 10 ML IVC SCH (17:00)
[2017-05-19 04:34] LABS: BUN/Creatinine Ratio 15 (6-26); Blood Urea Nitrogen 10 mg/dL (6-20); Calcium 9.1 mg/dL (8.6-10.3); Carbon Dioxide 26 mEq/L (23-29); Chloride 107 mEq/L (98-107); Glucose 102 mg/dL (70-105); Magnesium 2.2 mg/dL (1.6-2.6); Osmolality,Calculated 281 (280-300); Phosphorous 3.9 mg/dL (2.7-4.5); Potassium 4.2 mEq/L (3.5-5.1); Sodium 136 mEq/L (136-145); Triglycerides 74 mg/dL (< 150); eGFR For African Americans > 60 (> 60); eGFR For Non-African Americans > 60 (> 60)
[2017-05-19] MEDS: MetroNIDAZOLE 500 MG/100 ML 500 MG/100 ML BAG IVPB SCH ×3 (05:16→21:23)
[2017-05-19] MEDS: Pantoprazole 40 MG VIAL IVP SCH (07:34)
[2017-05-19] MEDS: *HR* HYDROcodone/Acet 7.5/325 mg TABLET PO PRN (07:37)
[2017-05-19] MEDS ORDERED: *HR* LORazepam 0.5 MG TABLET PO ONE (10:01)
[2017-05-19] MEDS: *HR* OxyCODONE Oral Soln 5 MG/5 ML UD.LIQ PO PRN ×4 (10:46→22:12)
--- NOTE | 2017-05-19 16:07 | General Surgery Progress Note ---
Date of Encounter: 05/19/17 Time of Encounter: 10:00 - Assessment and Plan (1) Crohn's disease with abscess Current Visit: Yes Status: Chronic plan OR sunday regulard diet today clears tomorrow with bowel prep antibiotics continue prn pain control - will change to oxycodone Qualifiers: Gastrointestinal tract location: unspecified location Qualified Code(s): K50.914 - Crohn's disease, unspecified, with abscess (2) Severe protein-calorie malnutrition Current Visit: Yes Status: Chronic continue TPN (3) Tobacco dependence Current Visit: Yes Status: Chronic pulmonary toilet IS (4) Abdominal pain Current Visit: No Status: Acute prn pain control NO NSAIDS Qualifiers: Abdominal location: right lower quadrant Qualified Code(s): R10.31 - Right lower quadrant pain (5) Anxiety Current Visit: Yes Status: Acute start prn ativan Subjective Patient reports: no new complaints, still having pain, tolerating a regular diet , voiding w/o difficulty, flatus, no bowel movement, afebrile Objective Vital Signs - Last 8 Hours Temp Pulse Resp BP Pulse Ox 05/19/17 15:41 98.2 F 86 15 122/76 99 05/19/17 11:57 97.6 F 72 16 125/63 100 Intake and Output 05/19/17 05/19/17 05/19/17 07:59 15:59 23:59 Intake Total 1439 / 1439 732 / 732 Output Total 600 / 600 400 / 400 Balance 839 / 839 332 / 332 Intake: IV Fluids 1319 / 1319 492 / 492 Clinimix E 5%-15% SOLUTION 2, 769 / 769 192 / 192 000 ML @ 50 mls/hr IVC .Q24H [facility] with M.v.i. Adult 10 ml Rx# :[id number] Cipro Premix 400 MG/200 ML 400 200 / 200 200 / 200 mg In 200 ml @ 200 mls/hr IVPB Q12H [facility] Rx#:[id number] Intralipid 20% 250 ML @ 21 mls/ 250 / 250 hr IVPB DAILY@1700 [facility] Rx#: [id number] Flagyl Premix 500 MG/100 ML 500 100 / 100 100 / 100 mg In 100 ml @ 100 mls/hr IVPB Q8H [facility] Rx#:[id number] Oral 120 / 120 240 / 240 Output: Urine 600 / 600 400 / 400 Wound Drainage 0 / 0 0 / 0 Right Lower Abdomen 0 / 0 0 / 0 Other: # Voids 0 1 Weight 83.416 kg Blood Glucose* 118 107 Patient Weight 05/19/17 23:59 Weight 83.416 kg - General physical appearance moderate distress, moderate pain, cachectic, chronically ill - Eyes PERRL, normal ocular movement - ENT normal mucosa, normocephalic - Neck Neck exam: trachea midline - Respiratory normal expansion, normal respiratory effort, clear to auscultation - Cardiovascular Cardiovascular exam: Present: RRR - Abdomen Abdomen: Present: bowel sounds present, soft, tender. Absent: guarding, rebound Abdominal Tenderness: RLQ Additional Comments: MILAD drain with purulent drainage - Integumentary no rash, no growths - Neurologic CN 2-12 grossly intact - Musculoskeletal normal posture - Psychiatric oriented to time, oriented to person, oriented to place, memory intact, other ( tearful and crying) - Labs 05/18/17 13:11 05/19/17 03:30 BMP 05/19/17 Range/Units 03:30 Sodium 136 (136-145) mEq/L Potassium 4.2 (3.5-5.1) mEq/L Chloride 107 (98-107) mEq/L Carbon Dioxide 26 (23-29) mEq/L BUN 10 (6-20) mg/dL Creatinine 0.67 L (0.70-1.30) mg/dL Glucose 102 (70-105) mg/dL Calcium 9.1 (8.6-10.3) mg/dL Vital Signs Temp Pulse Resp BP Pulse Ox 05/19/17 15:41 98.2 F 86 15 122/76 99 05/19/17 11:57 97.6 F 72 16 125/63 100 05/19/17 07:25 98.2 F 65 14 112/66 99 05/19/17 04:21 98.2 F 65 14 107/68 97 05/18/17 23:36 98.3 F 91 14 102/61 97 05/18/17 20:00 98.3 F 78 14 99/63 95 05/18/17 19:41 97 Intake and Output 05/19/17 05/19/17 05/19/17 07:59 15:59 23:59 Intake Total 1439 / 1439 732 / 732 Output Total 600 / 600 400 / 400 Balance 839 / 839 332 / 332 Intake: IV Fluids 1319 / 1319 492 / 492 Clinimix E 5%-15% SOLUTION 2, 769 / 769 192 / 192 000 ML @ 50 mls/hr IVC .Q24H [facility] with M.v.i. Adult 10 ml Rx# :[id number] Cipro Premix 400 MG/200 ML 400 200 / 200 200 / 200 mg In 200 ml @ 200 mls/hr IVPB Q12H [facility] Rx#:[id number] Intralipid 20% 250 ML @ 21 mls/ 250 / 250 hr IVPB DAILY@1700 [facility] Rx#: [id number] Flagyl Premix 500 MG/100 ML 500 100 / 100 100 / 100 mg In 100 ml @ 100 mls/hr IVPB Q8H [facility] Rx#:[id number] Oral 120 / 120 240 / 240 Output: Urine 600 / 600 400 / 400 Wound Drainage 0 / 0 0 / 0 Right Lower Abdomen 0 / 0 0 / 0 Other: # Voids 0 1 Weight 83.416 kg Blood Glucose* 118 107 Patient Weight 05/19/17 23:59 Weight 83.416 kg Consult Discharge Plan - Plan Referrals: Albina Marroquin, CREDIT DEPARTMENT MANAGER [Primary Care Provider] -
[2017-05-19] MEDS ORDERED: Clinimix E 5%-20% SOLUTION 2,000 ML with MVI, adult with vitamin K 10 ML IVC SCH (17:00)
[2017-05-19] MEDS: *HR* LORazepam 0.5 MG TABLET PO PRN (17:59)
[2017-05-20] MEDS: *HR* LORazepam 0.5 MG TABLET PO PRN ×3 (03:42→20:14)
[2017-05-20] MEDS: *HR* OxyCODONE Oral Soln 5 MG/5 ML UD.LIQ PO PRN ×5 (03:42→20:14)
[2017-05-20 05:04] LABS: Basophils % 0.3 %; Eosinophils # 0.1 K/mcL (0.0-0.6); Eosinophils % 0.8 %; Hematocrit 34.5 % (37.5-50.1); Hemoglobin 10.9 g/dL (12.9-16.9); Immature Granulocytes % 0.6 % (0-4); Lymphocytes # 2.2 K/mcL (0.6-4.6); Lymphocytes % 24.5 %; Mean Corpuscular HGB Conc 31.6 g/dL (31.6-35.5); Mean Corpuscular Hemoglobin 23.6 pg (28.0-33.3); Mean Corpuscular Volume 74.8 fL (83.0-100.0); Mean Platelet Volume 9.5 fL (9.4-12.4); Monocytes # 0.9 K/mcL (0.0-1.3); Monocytes % 9.6 %; Neutrophils # 5.7 K/mcL (1.6-8.9); Platelet Count 424 K/mcL (140-400); Red Blood Count 4.61 M/mcL (4.19-5.50); Red Cell Distribution Width 15.1 % (11.5-14.5); Segmented Neutrophils % 64.2 %
[2017-05-20] MEDS: MetroNIDAZOLE 500 MG/100 ML 500 MG/100 ML BAG IVPB SCH ×3 (05:43→22:09)
[2017-05-20 06:07] LABS: BUN/Creatinine Ratio 15 (6-26); Blood Urea Nitrogen 10 mg/dL (6-20); Carbon Dioxide 25 mEq/L (23-29); Chloride 107 mEq/L (98-107); Glucose 95 mg/dL (70-105); Magnesium 2.1 mg/dL (1.6-2.6); Osmolality,Calculated 281 (280-300); Phosphorous 3.9 mg/dL (2.7-4.5); Sodium 136 mEq/L (136-145); eGFR For African Americans > 60 (> 60); eGFR For Non-African Americans > 60 (> 60)
[2017-05-20] MEDS: Pantoprazole 40 MG VIAL IVP SCH (07:35)
[2017-05-20] MEDS ORDERED: Polyethylene Glycol 3350 255 GM POWDER PO ONE (09:00)
[2017-05-20] MEDS ORDERED: Ondansetron 4 MG/2 ML VIAL ONE (11:03)
--- NOTE | 2017-05-20 11:22 | General Surgery Progress Note ---
<Yamileth Carlson - Last Filed: 05/20/17 11:35> Date of Encounter: 05/20/17 Time of Encounter: 11:19 - Assessment and Plan (1) Crohn's disease with abscess Current Visit: Yes Status: Chronic 31-year-old male with PMH of Crohn's disease with abdominal abscess S/P IR guided drain placement in February 2017 here for surgical preparation for planned diagnostic laparoscopy, possible robotic ileocecectomy, possible open with Dr. Ellison on 05/21/2017. -plan OR tomorrow -CLD diet and bowel prep today. -NPO midnight -continue Abx, TPN -pain control -will add anti-emetic zofran Qualifiers: Gastrointestinal tract location: unspecified location Qualified Code(s): K50.914 - Crohn's disease, unspecified, with abscess (2) Abdominal pain Current Visit: No Status: Acute No NSAIDS -prn oxycodone Qualifiers: Abdominal location: right lower quadrant Qualified Code(s): R10.31 - Right lower quadrant pain (3) Severe protein-calorie malnutrition Current Visit: Yes Status: Chronic -TPN (4) Anxiety Current Visit: Yes Status: Acute -prn ativan (5) Tobacco dependence Current Visit: Yes Status: Chronic IS, pulmonary toilet Subjective Patient reports: no new complaints, still having pain, tolerating liquids well, voiding w/o difficulty, flatus, nausea, afebrile Objective Vital Signs - Last 8 Hours Temp Pulse Resp BP Pulse Ox 05/20/17 08:04 98 05/20/17 07:20 98 F 72 14 105/65 98 05/20/17 04:16 98.3 F 70 16 115/70 97 Intake and Output 05/19/17 05/20/17 05/20/17 22:59 07:59 15:59 Intake Total 120 / 120 Output Total 700 / 700 Balance -580 / -580 Intake: IV Fluids Clinimix E 5%-15% SOLUTION 2, 000 ML @ 50 mls/hr IVC .Q24H [facility] with M.v.i. Adult 10 ml Rx# :[id number] Clinimix E 5%-20% SOLUTION 2, 000 ML @ 70 mls/hr IVC .Q24H [facility] with M.v.i. Adult 10 ml Rx# :[id number] Intralipid 20% 250 ML @ 21 mls/ hr IVPB DAILY@1700 [facility] Rx#: [id number] Flagyl Premix 500 MG/100 ML 500 mg In 100 ml @ 100 mls/hr IVPB Q8H [facility] Rx#:[id number] Oral 120 / 120 Output: Urine 700 / 700 Wound Drainage 0 / 0 Right Lower Abdomen 0 / 0 Other: Meal Percent of Meal Consumed # Voids Weight Blood Glucose* Patient Weight 05/21/17 00:59 Weight 83 kg - General physical appearance moderate distress, moderate pain, cachectic, chronically ill - Eyes normal ocular movement - ENT normocephalic, CN 2-12 grossly intact - Neck Neck exam: trachea midline - Respiratory normal expansion, normal respiratory effort, clear to auscultation - Cardiovascular Cardiovascular exam: Present: RRR, no murmurs/rubs/gallops - Abdomen Abdomen: Present: bowel sounds present, soft. Absent: guarding, rebound, peritoneal Abdominal Tenderness: RLQ, diffusely Additional Comments: MILAD drain with purulent drainage. - Integumentary no rash - Neurologic CN 2-12 grossly intact, normal coordination - Musculoskeletal normal posture - Psychiatric oriented to time, oriented to person, oriented to place, speech is normal, memory intact - Labs 05/20/17 04:00 05/20/17 04:50 Diabetes panel 05/20/17 Range/Units 04:50 Sodium 136 (136-145) mEq/L Potassium 4.0 (3.5-5.1) mEq/L Chloride 107 (98-107) mEq/L Carbon Dioxide 25 (23-29) mEq/L BUN 10 (6-20) mg/dL Creatinine 0.66 L (0.70-1.30) mg/dL Glucose 95 (70-105) mg/dL Calcium 9.0 (8.6-10.3) mg/dL Calcium panel 05/20/17 Range/Units 04:50 Calcium 9.0 (8.6-10.3) mg/dL Phosphorus 3.9 (2.7-4.5) mg/dL Pituitary panel 05/20/17 Range/Units 04:50 Sodium 136 (136-145) mEq/L Potassium 4.0 (3.5-5.1) mEq/L Chloride 107 (98-107) mEq/L Carbon Dioxide 25 (23-29) mEq/L BUN 10 (6-20) mg/dL Creatinine 0.66 L (0.70-1.30) mg/dL Glucose 95 (70-105) mg/dL Calcium 9.0 (8.6-10.3) mg/dL Adrenal panel 05/20/17 Range/Units 04:50 Sodium 136 (136-145) mEq/L Potassium 4.0 (3.5-5.1) mEq/L Chloride 107 (98-107) mEq/L Carbon Dioxide 25 (23-29) mEq/L BUN 10 (6-20) mg/dL Creatinine 0.66 L (0.70-1.30) mg/dL Glucose 95 (70-105) mg/dL Calcium 9.0 (8.6-10.3) mg/dL Consult Discharge Plan - Plan Referrals: Albina Marroquin, INS[employer]IE [Primary Care Provider] - <Lea Ellison - Last Filed: 05/20/17 13:23> Date of Encounter: 05/20/17 - Assessment and Plan (1) Crohn's disease with abscess Current Visit: Yes Status: Chronic clears today, npo midnight bowel prep today plan OR tomorrow continue abx prn pain control prn anxiety medication continue tpn Qualifiers: Gastrointestinal tract location: unspecified location Qualified Code(s): K50.914 - Crohn's disease, unspecified, with abscess (2) Severe protein-calorie malnutrition Current Visit: Yes Status: Chronic (3) Tobacco dependence Current Visit: Yes Status: Chronic (4) Abdominal pain Current Visit: No Status: Acute Qualifiers: Abdominal location: right lower quadrant Qualified Code(s): R10.31 - Right lower quadrant pain (5) Anxiety Current Visit: Yes Status: Acute Subjective Patient reports: no new complaints, still having pain, pain is less, tolerating liquids well, voiding w/o difficulty, flatus, nausea, afebrile Objective Vital Signs - Last 8 Hours Temp Pulse Resp BP Pulse Ox 05/20/17 11:15 97.9 F 82 15 143/90 100 05/20/17 08:04 98 05/20/17 07:20 98 F 72 14 105/65 98 Intake and Output 05/19/17 05/20/17 05/20/17 22:59 07:59 15:59 Intake Total 640 / 640 Output Total 750 / 750 Balance -110 / -110 Intake: IV Fluids 280 / 280 Clinimix E 5%-15% SOLUTION 2, 000 ML @ 50 mls/hr IVC .Q24H [facility] with M.v.i. Adult 10 ml Rx# :[id number] Clinimix E 5%-20% SOLUTION 2, 280 / 280 000 ML @ 70 mls/hr IVC .Q24H [facility] with M.v.i. Adult 10 ml Rx# :[id number] Intralipid 20% 250 ML @ 21 mls/ hr IVPB DAILY@1700 [facility] Rx#: [id number] Flagyl Premix 500 MG/100 ML 500 mg In 100 ml @ 100 mls/hr IVPB Q8H [facility] Rx#:[id number] Oral 360 / 360 Output: Urine 700 / 700 Wound Drainage 50 / 50 Right Lower Abdomen 50 / 50 Other: Meal Percent of Meal Consumed # Voids 0 Weight Blood Glucose* 96 Patient Weight 05/21/17 00:59 Weight 83 kg - General physical appearance moderate pain, cachectic, chronically ill - Eyes PERRL, normal ocular movement - ENT normal mucosa, normocephalic - Neck Neck exam: trachea midline - Respiratory normal expansion, clear to auscultation - Cardiovascular Cardiovascular exam: Present: RRR, no murmurs/rubs/gallops - Abdomen Abdomen: Present: bowel sounds present, soft, tender Abdominal Tenderness: RLQ - Integumentary no rash - Neurologic CN 2-12 grossly intact, normal coordination - Musculoskeletal normal posture - Psychiatric memory intact - Labs 05/20/17 04:00 05/20/17 04:50 Short CBC 05/20/17 Range/Units 04:00 WBC 8.8 (4.3-11.1) K/mcL Hgb 10.9 L (12.9-16.9) g/dL Hct 34.5 L (37.5-50.1) % Plt Count 424 H (140-400) K/mcL Neutrophils # 5.7 (1.6-8.9) K/mcL BMP 05/20/17 Range/Units 04:50 Sodium 136 (136-145) mEq/L Potassium 4.0 (3.5-5.1) mEq/L Chloride 107 (98-107) mEq/L Carbon Dioxide 25 (23-29) mEq/L BUN 10 (6-20) mg/dL Creatinine 0.66 L (0.70-1.30) mg/dL Glucose 95 (70-105) mg/dL Calcium 9.0 (8.6-10.3) mg/dL Vital Signs Temp Pulse Resp BP Pulse Ox 05/20/17 11:15 97.9 F 82 15 143/90 100 05/20/17 08:04 98 05/20/17 07:20 98 F 72 14 105/65 98 05/20/17 04:16 98.3 F 70 16 115/70 97 05/19/17 23:43 98.5 F 72 16 110/73 97 05/19/17 20:22 100 05/19/17 19:47 98.5 F 79 18 111/73 100 05/19/17 15:41 98.2 F 86 15 122/76 99 Intake and Output 05/19/17 05/20/17 05/20/17 22:59 07:59 15:59 Intake Total 640 / 640 Output Total 750 / 750 Balance -110 / -110 Intake: IV Fluids 280 / 280 Clinimix E 5%-15% SOLUTION 2, 000 ML @ 50 mls/hr IVC .Q24H [facility] with M.v.i. Adult 10 ml Rx# :[id number] Clinimix E 5%-20% SOLUTION 2, 280 / 280 000 ML @ 70 mls/hr IVC .Q24H [facility] with M.v.i. Adult 10 ml Rx# :[id number] Intralipid 20% 250 ML @ 21 mls/ hr IVPB DAILY@1700 [facility] Rx#: [id number] Flagyl Premix 500 MG/100 ML 500 mg In 100 ml @ 100 mls/hr IVPB Q8H [facility] Rx#:[id number] Oral 360 / 360 Output: Urine 700 / 700 Wound Drainage 50 / 50 Right Lower Abdomen 50 / 50 Other: Meal Percent of Meal Consumed # Voids 0 Weight Blood Glucose* 96 Patient Weight 05/21/17 00:59 Weight 83 kg - Attending Attestation I examined this patient and my medical decision-making was reviewed with the Resident Physician. I agree with the documented findings, disposition and treatment plan as described except to the extent set forth below.
[2017-05-20] MEDS: Ipratropium/Albuterol Neb 3 ML IH SCH ×3 (16:49→23:41)
[2017-05-20] MEDS: Ondansetron 4 MG/2 ML VIAL IVP PRN (16:53)
[2017-05-20] MEDS ORDERED: Clinimix E 5%-20% SOLUTION 2,000 ML with MVI, adult with vitamin K 10 ML IVC SCH (17:00)
[2017-05-21] MEDS ORDERED: Ringers Solution, Lactated 1,000 ML IVC SCH (00:01)
[2017-05-21] MEDS: Ondansetron 4 MG/2 ML VIAL IVP PRN ×2 (01:04→16:20)
[2017-05-21] MEDS: *HR* OxyCODONE Oral Soln 5 MG/5 ML UD.LIQ PO PRN ×2 (01:04→05:50)
[2017-05-21] MEDS: Ipratropium/Albuterol Neb 3 ML IH SCH (04:20)
[2017-05-21 05:28] LABS: BUN/Creatinine Ratio 17 (6-26); Blood Urea Nitrogen 12 mg/dL (6-20); Calcium 9.1 mg/dL (8.6-10.3); Carbon Dioxide 25 mEq/L (23-29); Chloride 103 mEq/L (98-107); Glucose 101 mg/dL (70-105); Magnesium 2.1 mg/dL (1.6-2.6); Osmolality,Calculated 294 (280-300); Phosphorous 4.6 mg/dL (2.7-4.5); Potassium 3.9 mEq/L (3.5-5.1); Sodium 142 mEq/L (136-145); eGFR For African Americans > 60 (> 60); eGFR For Non-African Americans > 60 (> 60)
[2017-05-21] MEDS: MetroNIDAZOLE 500 MG/100 ML 500 MG/100 ML BAG IVPB SCH ×2 (05:49→22:28)
[2017-05-21] MEDS: *HR* LORazepam 0.5 MG TABLET PO PRN (05:50)
[2017-05-21] MEDS: Pantoprazole 40 MG VIAL IVP SCH (08:00)
--- NOTE | 2017-05-21 09:03 | Anesthesia Evaluation PreOp ---
Date of Encounter: 05/21/17 Time of Encounter: 09:00 - Past History Planned Operation: Diagnostic Lap, possible Robotic Ileostomy Cardiac History: Denies any Significant Hx Pulmonary History: Smoker SUPERVISOR AREA History: Denies Any Significant HX Other Medical History: Other (Crohn's, Malnutrition) Alcohol Use: none Drug use: none Medications and Allergies Ciprofloxacin [Cipro] 500 mg PO BID 05/18/17 [History] metroNIDAZOLE [Flagyl] 500 mg PO BID 05/18/17 [History] 3 Allergy/AdvReac Type Severity Reaction Status Date / Time NSAIDS (Non-Steroidal Allergy Severe Abdominal Verified 05/19/17 10:08 Anti-Inflamma Pain Penicillins [PCN] Allergy Hives Verified 05/18/17 12:07 - Meds/Allergy Pre-op Review Medications Reviewed: Yes Allergies Reviewed: Yes Beta Blockers on Current Med List: No Anesthesia Results - Labs 05/20/17 04:00 05/21/17 04:55 Anesthesia Exam O2 Sat O2 Sat by Pulse Oximetry 100 O2 Sat by Pulse Oximetry 100 O2 Sat by Pulse Oximetry 98 O2 Sat by Pulse Oximetry 100 O2 Sat by Pulse Oximetry 100 O2 Sat by Pulse Oximetry 99 O2 Sat by Pulse Oximetry 99 O2 Sat by Pulse Oximetry 99 O2 Sat by Pulse Oximetry 99 O2 Sat by Pulse Oximetry 100 O2 Sat by Pulse Oximetry 100 Vital Signs Temp Pulse Resp BP Pulse Ox 98.9 F 93 16 95/60 99 05/18/17 11:50 05/18/17 11:50 05/18/17 11:50 05/18/17 11:50 05/18/17 11:50 Height: 5'10 Weight: 182 lbs NPO (# of Hours): MN Pain Scale: 0 - HEENT Pupil (Motor): Pupils equal, EOMI Mallampati: III Teeth: Edentulous Oral Opening: Greater than 3 - SUPERVISOR ARE[employer] LOC: Oriented SUPERVISOR AREA Motor: Normal RUE, Normal LUE, Normal RLE, Normal LLE, Normal Face [employer]PERVISOR [employer] Sensory: Normal: RUE, LUE, RLE, LLE, Face - Cardiac Rhythm: Regular Murmur: None JVD: No Carotid Bruit: No - Pulmonary Breath Sounds: bilateral Clear Respiratory Effort: Symmetrical Anesthesia Assess/Plan ASA Score: 2 Modified Lukas Scale for Level of Consciousness: Cooperative, oriented, and tranquil Anesthetic Plan: General, Regional Monitoring Plan: Standard Monitors Recovery Plan: PACU (Discussed GA, possible TAP Block post op, agrees to proceed )
[2017-05-21] MEDS ORDERED: Albuterol 2.5 MG/3 ML NEBULIZER IH ONE (09:08)
[2017-05-21] MEDS ORDERED: Bupivacaine/Clonidine Syringe 1 EACH SYRINGE ONE (09:24)
[2017-05-21] MEDS ORDERED: Ondansetron 4 MG/2 ML VIAL ONE ×2 (09:28→13:42)
[2017-05-21] MEDS ORDERED: *HR* Rocuronium Bromide 50 MG/5 ML VIAL ONE ×2 (09:28→11:34)
[2017-05-21] MEDS ORDERED: Neostigmine Methylsulfate 3 MG/3 ML SYRINGE ONE (09:28)
[2017-05-21] MEDS ORDERED: *HR* FentaNYL (PF) 100 MCG/2 ML VIAL ONE ×2 (09:29→10:52)
[2017-05-21] MEDS ORDERED: *HR* Midazolam HCl 2 MG/2 ML VIAL ONE (09:29)
[2017-05-21] MEDS ORDERED: *HR* Propofol 200 MG/20 ML VIAL IVP ONE (09:29)
[2017-05-21] MEDS ORDERED: Lidocaine -MPF 2% 2 ML VIAL ONE (09:29)
[2017-05-21] MEDS ORDERED: *HR* Heparin 5,000 UNIT/ML VIAL ONE (10:30)
[2017-05-21] MEDS ORDERED: *HR* PHENYLEPHRINE 1,000 MCG/10 ML SYRINGE IVP ONE (12:05)
--- NOTE | 2017-05-21 13:02 | Operative Note ---
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 Sign in was performed and everyone was in agreement. Anesthesia was induced and patient was endotracheally intubated by anesthesia without incident. Rivas catheter was placed by the circulating nurse. An NG tube was placed by anesthesia. The abdomen was shaved. The abdomen was prepped and draped in the usual sterile fashion. Previous right lower quadrant MILAD drain was prepped as well but kept out of the field. Timeout was performed again everyone was in agreement. Midline incision through the skin into the subcutaneous tissue was made with a 15 blade. We dissected down to the anterior abdominal wall linea alba fascia with the Bovie. [place]'s were placed on either side of the fascia for retraction and the abdomen was entered with the Bovie and the midline fascia incision elongated. A Bookwalter was placed for exposure and retraction. The cecum was identified and the terminal ileum was inflamed very thick, firm, hard, and densely adherent to the anterior abdominal wall. Just below the terminal ileum the distal sigmoid was also inflamed, firm, and densely adherent to the anterior abdominal wall. Both the terminal ileum and sigmoid were taken off the abdominal wall with gentle blunt dissection and the Bovie. The terminal ileum was from the sigmoid with gentle blunt dissection and Metzenbaum scissors. The MILAD drain was not palpable or visible and was well within the abdominal wall. The patient required resection of not only a portion of the sigmoid colon but also the terminal ileum. An area in the distal sigmoid mesentery just below the area involved area of Crohn's inflammation and abscess was opened with the Bovie. The colon was transected with a contour stapler blue load. An area of the sigmoid colon mesentery just above the area of involved Crohn's inflammation and abscess was opened with the Bovie and the colon transected with a linear KANG -75 stapler blue load. The left ureter was located and kept out of harm's way The colon mesentery was then transected with the impact LigaSure and the segment of sigmoid colon was placed off to the back table for pathology after the distal end was marked with a 3-0 silk stitch. An opening in the terminal ileum mesentery just proximal to the area of involved Crohn's abscess and inflammation was opened with the Bovie. The terminal ileum was transected with a linear KANG-75 stapler blue load. The right colon was taken down off the right lateral abdominal wall at the white line of [place]t with the Bovie in a proximal to distal dull direction. The right ureter was located and kept out of harm's way. An opening in the mesentery of the right colon was made just above the cecum with the Bovie. The colon was then transected with a linear KANG -75 stapler blue load. The terminal ileum and cecum mesentery was transected with an impact LigaSure and the specimen was placed off to the back table for pathology. The abdomen was irrigated with sterile saline. A sifr-fn-heeh terminal ileum to right colon anastomosis was made first with a linear KANG-75 stapler blue load creating the common channel and a TX 60 stapler closing the and of the common channel. 3-0 silk tpirly-kl-olrhu stitches were used to re- of proximally the closed end of the common channel. 3-0 silk stitch was placed as a crotch stitch. A 2-0 Prolene idgvlc-xo-rwjda stitch was placed at the proximal transected rectum. [place]'s were placed on the left fascia for retraction. A circular incision through the skin and the subcutaneous tissue several centimeters above the umbilicus and overlying the left lateral aspect of the rectus was made with a 15 blade, and the skin was excised with the Bovie. We dissected to the anterior rectus fascia with the Bovie and a longitudinal incision through the fascia was made with the Bovie area the rectus muscle was split in a longitudinal fashion with a Sindi and the posterior rectus fascia entered. The ostomy opening was then digitally dilated to accommodate 2 fingerbreadths. The sigmoid colon was then pulled up through the colostomy opening with a Panther Burn. The omentum was draped around the ileocolic anastomosis and down into the pelvis. Ely's are placed on either side of the fascia for retraction. The midline fascia was reapproximated with 2 #1 non-looped PDS running stitches meeting in the middle. The subcutaneous tissue was copiously irrigated with sterile saline. The subcutaneous tissue was reapproximated with 3-0 Vicryl interrupted stitches. The skin was closed with harinder. Babcocks were placed over the sigmoid colon staple line and the staple line transected with heavy curved Vargas scissors. There was copious bleeding from the transected edge which was stopped with the Bovie. The colostomy was created with full-thickness colon wall to subcuticular tissue 3-0 Vicryl interrupted stitches. An ostomy appliance was placed. 4 x 4 gauze and Medipore tape were applied to the midline wound. All lap and instrument counts are correct at the end of the case. The patient tolerated the procedure well. He was awoken by anesthesia and extubated in the OR without incident after the NG tube was removed. Rivas catheter remained with the patient after the case. The MILAD drain was secured to the skin with a 2-0 silk stitch. He was taken to PACU in stable condition.
[2017-05-21] MEDS ORDERED: *HR* Promethazine 25 MG/ML VIAL ONE (13:40)
[2017-05-21] MEDS ORDERED: MORPHINE SUL Oral CONC 10 MG/0.5 ML ORAL.SYG ONE (13:45)
[2017-05-21] MEDS ORDERED: *HR* Meperidine 25 MG/ML SYRINGE ONE (13:47)
[2017-05-21] MEDS ORDERED: *HR* Labetalol 20 MG/4 ML SYRINGE IVP PRN (13:48)
[2017-05-21] MEDS ORDERED: MORPHINE SUL Oral CONC 10 MG/0.5 ML ORAL.SYG SL PRN (13:48)
[2017-05-21] MEDS ORDERED: *HR* Promethazine 25 MG/ML VIAL IVP PRN (13:48)
[2017-05-21] MEDS ORDERED: *HR* OxyCODONE Immed Rel 5 MG TABLET PO PRN (13:48)
[2017-05-21] MEDS ORDERED: Scopolamine Patch 1.5 MG PATCH.TD72 ONE (13:57)
--- NOTE | 2017-05-21 14:32 | Anesthesia Evaluation Post Op ---
Date of Encounter: 05/21/17 Time of Encounter: 14:30 - Vital Signs Vital Signs: Vital Signs/O2 Sat/Glucose, Most Current Temp Pulse Resp BP Pulse Ox 05/21/17 14:15 67 13 110/61 100 05/21/17 14:05 97.4 F L 68 13 103/54 100 05/21/17 13:55 82 15 119/55 100 05/21/17 13:45 79 14 119/61 99 05/21/17 13:35 97.1 F L 81 12 101/71 100 - Lungs Lungs: Clear Ascult./Percussion - Airway Airway: Non-obstructed - Cardiovascular Regular Rate - Mental Status Mental Status: Alert & Oriented, Answers Appropriately - Pain Pain Scale: 1 - Nausea Vomiting Nausea Vomiting: Not Present - Hydration Hydration: NPO - Discharge PostOp Status: Transfer Patient to floor
--- NOTE | 2017-05-21 15:04 | Anesthesia Procedures ---
Date of Encounter: 05/21/17 Time of Encounter: 12:59 Procedures: Anesthesia - Nerve Block Procedure Date: 05/21/17 Time: 12:59 Surgical Procedure: open bowel surgery. Checklist: Correct Patient Identifier, Correct procedure, History checked Blood Thinner: Yes (SQ hep. ) Monitor Applied: EKG, BP, Pulse Oximetry Indication: Post Op Analgesia Pre-op Neuro Deficits: No Block Type: Other (subcostal and TAP blocks bilateral. ) Catheter placed: No Sterile Technique: Yes Ultrasound used: Yes Anatomy identified: Yes Visual spread of Local: Yes Neuro Stimulation: No Blood on Needle Aspiration: No Smooth Injection of Local: Yes Pain with Injection of Local: No Prep: Chlorhexadine Needle: 22 x 50 mm Stimuplex, 21 x 100 mm Stimuplex Local: 0.25% Bupivicaine w/Clonidine 20 mcg/cc Volume (cc): 80ml Number of Attempts: 1 Complications: None/effective block Vitals: 80ml of 0.25% bup diluted with 80ml of 0.9% NS. 40ml inj at each site. aseptic tech though out.
[2017-05-21] MEDS ORDERED: *HR* FentaNYL PATCH 25 MCG PATCH TD SCH (15:46)
[2017-05-21] MEDS ORDERED: D10% in Water 500 ML IVC PRN (15:46)
[2017-05-21] MEDS ORDERED: Ipratropium/Albuterol Neb 3 ML IH PRN (15:46)
[2017-05-21] MEDS ORDERED: Clinimix E 5%-20% SOLUTION 2,000 ML with MVI, adult with vitamin K 10 ML IVC SCH ×3 (15:46→17:00)
[2017-05-21] MEDS ORDERED: *HR* OxyCODONE Oral Soln 5 MG/5 ML UD.LIQ PO PRN (15:46)
[2017-05-21] MEDS: Acetaminophen IV 1,000 MG/100 ML INFUS..BTL IVPB SCH ×2 (17:53→23:40)
[2017-05-21] MEDS: OXYCODONE Oral CONC 10 MG/0.5 ML ORAL.SYG SL PRN (17:53)
[2017-05-21] MEDS ORDERED: *HR* HYDROmorphone 20 MG/20 ML PCA IVC PRN (18:26)
[2017-05-21] MEDS ORDERED: 0.9 % Sodium Chloride 500 ML ONE (19:19)
[2017-05-21] MEDS: *HR* Heparin 5,000 UNIT/ML VIAL SQ SCH (19:33)
[2017-05-22] MEDS: MetroNIDAZOLE 500 MG/100 ML 500 MG/100 ML BAG IVPB SCH ×3 (05:57→23:25)
[2017-05-22] MEDS: OXYCODONE Oral CONC 10 MG/0.5 ML ORAL.SYG SL PRN (05:58)
[2017-05-22] MEDS: *HR* Heparin 5,000 UNIT/ML VIAL SQ SCH ×2 (05:58→18:33)
[2017-05-22 06:53] LABS: BUN/Creatinine Ratio 19 (6-26); Blood Urea Nitrogen 12 mg/dL (6-20); Calcium 8.6 mg/dL (8.6-10.3); Carbon Dioxide 26 mEq/L (23-29); Chloride 105 mEq/L (98-107); Glucose 100 mg/dL (70-105); Magnesium 1.9 mg/dL (1.6-2.6); Osmolality,Calculated 280 (280-300); Phosphorous 3.5 mg/dL (2.7-4.5); Potassium 4.4 mEq/L (3.5-5.1); Sodium 135 mEq/L (136-145); eGFR For African Americans > 60 (> 60); eGFR For Non-African Americans > 60 (> 60)
[2017-05-22] MEDS: Pantoprazole 40 MG VIAL IVP SCH (08:32)
--- NOTE | 2017-05-22 08:51 | General Surgery Progress Note ---
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 CBC for today pending. His abdominal exam is as expected for day one postoperatively. Plan: -NPO, await return of bowel function, PICC and TPN -continue supportive care and discomfort management: increased PRN FORM SETTER METAL ROAD FORMS to 0.3 mg Q10 mins max 8 mg Q4H and basal rate 0.5 mg, scheduled Ofirmev, and Fentanyl patch. Apply ice to abdomen for 20 mins Q1H PRN. No NSAIDs. -replace electrolytes as indicated - Continue G.I. and DVT prophylaxis -out of bed to chair at least 3 times daily -EPCDs while in bed -heparin subacute 5000 units b.i.d. -serial abdominal exams -repeat a.m. labs Qualifiers: Gastrointestinal tract location: unspecified location Qualified Code(s): K50.914 - Crohn's disease, unspecified, with abscess (2) Painful respiratory movement Current Visit: Yes Status: Acute Patient with significant smoking history. Will obtain portable CXR. Scheduled duonebs, respiratory consult for aggressive pulmonary toileting, this was reviewed with patient and respiratory per telephone. Will continue to monitor and place further orders as indicated. Portable CXR with atelectasis. Continue previous recommendations. (3) Severe protein-calorie malnutrition Current Visit: Yes Status: Chronic Continue TPN. Repeat a.m. labs NPO, await return of bowel function (4) Depression with anxiety Current Visit: Yes Status: Acute Consult placed to psych for recommendations in the setting of history of depression with anxiety, new unplanned colostomy, social situations including patient is unaware that his girlfriend is reported to have moved the patient and their children out of their home and has also moved in a new partner(as reported per the patient's mother), further social situations include mother is unable to assist in his care at this time because his sister, for whom the mother cares, has stage IV metastatic cancer. Medication, treatment, therapy, recommendations per psych are greatly appreciated. (5) Tobacco dependence Current Visit: Yes Status: Acute See assessment and plan for painful respirations above. Patient noted to have vapor cigarettes at bedside. He is reminded that this is against hospital policy. Patient verbalized understanding. (6) Nausea and vomiting Current Visit: No Status: Acute Qualifiers: Vomiting type: unspecified Vomiting Intractability: unspecified Qualified Code(s): R11.2 - Nausea with vomiting, unspecified Subjective Patient reports: still having pain, voiding w/o difficulty (Per dominguez catheter) , no flatus, no bowel movement, shortness of breath (Pain with breathing (on the left)), afebrile Narrative: Tonio states his abdominal pain makes it difficult to move around. He is not used his incentive spirometry sent surgery as he stated he could not reach it. He reports pain on the left side with deep breathing and productive cough, but he is unable to bring sputum fully up. Objective Vital Signs - Last 8 Hours Temp Pulse Resp BP Pulse Ox 05/22/17 07:21 98.3 F 75 16 109/69 98 05/22/17 04:35 97.7 F 73 14 103/66 98 Intake and Output 05/21/17 05/22/17 05/22/17 23:59 07:59 15:59 Intake Total 200 / 200 220 / 220 550 / 550 Output Total 1000 / 1000 1675 / 1675 Balance -800 / -800 -1455 / -1455 550 / 550 Intake: IV Fluids 200 / 200 100 / 100 550 / 550 Ofirmev 1,000 mg/100 ml 1,000 100 / 100 100 / 100 mg In 100 ml @ 400 mls/hr IVPB Q8HR [facility] Rx#:[id number] Cipro Premix 400 MG/200 ML 400 200 / 200 mg In 200 ml @ 200 mls/hr IVPB Q12H [facility]A Rx#:[id number] Intralipid 20% 250 ML @ 21 mls/ 250 / 250 hr IVPB DAILY@1700 ALY[facility]A Rx#: [id number] Flagyl Premix 500 MG/100 ML 500 100 / 100 100 / 100 mg In 100 ml @ 100 mls/hr IVPB Q8H ALYSSA Rx#:[id number] Oral 0 / 0 120 / 120 Output: Catheter 1000 / 1000 1675 / 1675 Wound Drainage 0 / 0 Right Lower Abdomen 0 / 0 Other: # Bowel Movements 0 Weight 82.962 kg Blood Glucose* 163 124 Patient Weight 05/22/17 23:59 Weight 82.962 kg VITAL SIGNS: Reviewed. No temperature recorded this a.m. See [facility] GENERAL: In mild distress - with guarding posture and holding tightly to the bed rails, states he is unable to move around. HEENT: Normocephalic, atraumatic, pupils are equal and reactive, extraocular motions intact, oropharynx is pink and moist, there is no neck adenopathy or JVD noted. CHEST/RESPIRATORY: The thorax is free from signs of trauma. Lung sounds: course throughout, find crackles noted in the left lower lobe posteriorly. Decreased throughout. Poor inspiratory effort. CARDIAC: Regular rate and rhythm. Normal S1 and S2, without murmurs, gallops, or rubs. VASCULAR: No Edema. 2+ peripheral pulses. ABDOMEN: soft, expected postoperative tenderness, absent bowel sounds as expected, no abnormal discoloration. INCISION: Surgical incision is clean, dry, and intact. There are no signs of cellulitis or infection noted. WOUNDS/DRAINS: 1) MILAD drain is with mixed cloudy and serous fluid. Foul- smelling. Site is within normal limits. 2) stoma is pink and moist, slightly edematous. There is a small amount of bowel sweat noted. There is no flatus noted. MUSCULOSKELETAL: Good range of motion of all major joints. Extremities without clubbing, cyanosis or edema. NEUROLOGIC EXAM: Alert and oriented x 3. Speech normal. Follows commands. PSYCHIATRIC: Mood normal. SKIN: No rash or lesions. - Labs 05/22/17 10:30 05/22/17 06:05 Diabetes panel 05/22/17 Range/Units 06:05 Sodium 135 L (136-145) mEq/L Potassium 4.4 (3.5-5.1) mEq/L Chloride 105 (98-107) mEq/L Carbon Dioxide 26 (23-29) mEq/L BUN 12 (6-20) mg/dL Creatinine 0.64 L (0.70-1.30) mg/dL Glucose 100 (70-105) mg/dL Calcium 8.6 (8.6-10.3) mg/dL Calcium panel 05/22/17 Range/Units 06:05 Calcium 8.6 (8.6-10.3) mg/dL Phosphorus 3.5 (2.7-4.5) mg/dL Pituitary panel 05/22/17 Range/Units 06:05 Sodium 135 L (136-145) mEq/L Potassium 4.4 (3.5-5.1) mEq/L Chloride 105 (98-107) mEq/L Carbon Dioxide 26 (23-29) mEq/L BUN 12 (6-20) mg/dL Creatinine 0.64 L (0.70-1.30) mg/dL Glucose 100 (70-105) mg/dL Calcium 8.6 (8.6-10.3) mg/dL Adrenal panel 05/22/17 Range/Units 06:05 Sodium 135 L (136-145) mEq/L Potassium 4.4 (3.5-5.1) mEq/L Chloride 105 (98-107) mEq/L Carbon Dioxide 26 (23-29) mEq/L BUN 12 (6-20) mg/dL Creatinine 0.64 L (0.70-1.30) mg/dL Glucose 100 (70-105) mg/dL Calcium 8.6 (8.6-10.3) mg/dL - VTE Documentation of Mechanical Device: Intermittent pneumatic compression device Consult Discharge Plan - Plan Referrals: Albina Marroquin, AIRPLANE AND ENGINE INSPECTOR [Primary Care Provider] - <Lea Ellison - Last Filed: 05/22/17 15:35> Date of Encounter: 05/22/17 - Assessment and Plan (1) Crohn's disease with abscess Current Visit: Yes Status: Chronic pt is sp ileocectomy with primary anastomosis and sigmoid resection with colostomy. pain is better controlled with FORM SETTER METAL RO[address] FORMS continue npo until bowel function returns gi/dvt prophylaxis aggressive pulmonary toilet OOB to chair bid/ambulate Qualifiers: Gastrointestinal tract location: unspecified location Qualified Code(s): K50.914 - Crohn's disease, unspecified, with abscess (2) Severe protein-calorie malnutrition Current Visit: Yes Status: Chronic (3) Tobacco dependence Current Visit: Yes Status: Acute (4) Abdominal pain Current Visit: No Status: Acute Qualifiers: Abdominal location: right lower quadrant Qualified Code(s): R10.31 - Right lower quadrant pain (5) Depression with anxiety Current Visit: Yes Status: Acute patient is also drug abuser and per mother injects oxycodone Objective Vital Signs - Last 8 Hours Temp Pulse Resp BP Pulse Ox 05/22/17 14:39 97.7 F 67 16 100/65 98 05/22/17 11:12 97.5 F L 67 16 122/78 98 05/22/17 10:30 98.4 F Intake and Output 05/21/17 05/22/17 05/22/17 23:59 07:59 15:59 Intake Total 200 / 200 220 / 220 650 / 650 Output Total 1000 / 1000 1675 / 1675 1475 / 1475 Balance -800 / -800 -1455 / -1455 -825 / -825 Intake: IV Fluids 200 / 200 100 / 100 650 / 650 Ofirmev 1,000 mg/100 ml 1,000 100 / 100 100 / 100 100 / 100 mg In 100 ml @ 400 mls/hr IVPB Q8H ALYSS[facility] Rx#:[id number] Cipro Premix 400 MG/200 ML 400 200 / 200 mg In 200 ml @ 200 mls/hr IVPB Q12H ALYSSA Rx#:[id number] Intralipid 20% 250 ML @ 21 mls/ 250 / 250 hr IVPB DAILY@1700 ALYSSA Rx#: [id number] Flagyl Premix 500 MG/100 ML 500 100 / 100 100 / 100 mg In 100 ml @ 100 mls/hr IVPB Q8H ALYSSA Rx#:[id number] Oral 0 / 0 120 / 120 0 / 0 Output: Urine 1075 / 1075 Catheter 1000 / 1000 1675 / 1675 400 / 400 Wound Drainage 0 / 0 0 / 0 Right Lower Abdomen 0 / 0 0 / 0 Other: Meal NPO Percent of Meal Consumed 0% # Bowel Movements 0 0 Weight 82.962 kg Blood Glucose* 163 124 116 Patient Weight 05/22/17 23:59 Weight 82.962 kg - Labs 05/22/17 10:30 05/22/17 06:05 Diabetes panel 05/22/17 Range/Units 06:05 Sodium 135 L (136-145) mEq/L Potassium 4.4 (3.5-5.1) mEq/L Chloride 105 (98-107) mEq/L Carbon Dioxide 26 (23-29) mEq/L BUN 12 (6-20) mg/dL Creatinine 0.64 L (0.70-1.30) mg/dL Glucose 100 (70-105) mg/dL Calcium 8.6 (8.6-10.3) mg/dL Calcium panel 05/22/17 Range/Units 06:05 Calcium 8.6 (8.6-10.3) mg/dL Phosphorus 3.5 (2.7-4.5) mg/dL Pituitary panel 05/22/17 Range/Units 06:05 Sodium 135 L (136-145) mEq/L Potassium 4.4 (3.5-5.1) mEq/L Chloride 105 (98-107) mEq/L Carbon Dioxide 26 (23-29) mEq/L BUN 12 (6-20) mg/dL Creatinine 0.64 L (0.70-1.30) mg/dL Glucose 100 (70-105) mg/dL Calcium 8.6 (8.6-10.3) mg/dL Adrenal panel 05/22/17 Range/Units 06:05 Sodium 135 L (136-145) mEq/L Potassium 4.4 (3.5-5.1) mEq/L Chloride 105 (98-107) mEq/L Carbon Dioxide 26 (23-29) mEq/L BUN 12 (6-20) mg/dL Creatinine 0.64 L (0.70-1.30) mg/dL Glucose 100 (70-105) mg/dL Calcium 8.6 (8.6-10.3) mg/dL - Attending Attestation I have personally performed a face to face evaluation on this patient. I have reviewed and agree with the care plan. History and Exam by me shows:
[2017-05-22] MEDS ORDERED: *HR* HYDROmorphone 20 MG/20 ML PCA IVC PRN (09:36)
[2017-05-22] MEDS ORDERED: Naloxone 0.4 MG/ML INJ IVP PRN (10:35)
[2017-05-22 10:42] LABS: Basophils % 0.3 %; Eosinophils # 0.1 K/mcL (0.0-0.6); Eosinophils % 0.8 %; Hematocrit 33.8 % (37.5-50.1); Hemoglobin 10.6 g/dL (12.9-16.9); Immature Granulocytes % 0.5 % (0-4); Lymphocytes # 2.1 K/mcL (0.6-4.6); Lymphocytes % 18.9 %; Mean Corpuscular HGB Conc 31.4 g/dL (31.6-35.5); Mean Corpuscular Hemoglobin 23.9 pg (28.0-33.3); Mean Corpuscular Volume 76.3 fL (83.0-100.0); Mean Platelet Volume 9.3 fL (9.4-12.4); Monocytes # 0.9 K/mcL (0.0-1.3); Monocytes % 7.7 %; Neutrophils # 7.9 K/mcL (1.6-8.9); Nucleated Red Blood Cells 0.3 /100 WBC (0); Platelet Count 399 K/mcL (140-400); Red Blood Count 4.43 M/mcL (4.19-5.50); Red Cell Distribution Width 15.1 % (11.5-14.5); Segmented Neutrophils % 71.8 %
[2017-05-22] MEDS: Acetaminophen IV 1,000 MG/100 ML INFUS..BTL IVPB SCH ×2 (10:53→21:24)
[2017-05-22] MEDS: Ipratropium/Albuterol Neb 3 ML IH SCH ×5 (11:00→23:01)
[2017-05-22] MEDS: *HR* HYDROmorphone 20 MG/20 ML PCA IVC PRN (13:46)
--- NOTE | 2017-05-22 13:58 | Consult Note ---
Date of Encounter: 05/22/17 Time of Encounter: 13:30 Assessment & Recommendation (1) Depression with anxiety Current visit: Yes Status: Acute Assessment & Recommendation: 1. Referral to outpatient mental health for counseling and medication management is recommended 2. I recommend mirtazapine 15 mg at bedtime to be started and evaluated as outpatient. Medication would have the benefit of improving appetite, sleep and treat depression. Thank you for consultation. History of Present Illness Patient: new to practice Requesting Physician: Lea Ellison MD Reason for consult: Depression and anxiety History of present illness: Mr. Sam is a 31 year old male admitted to the hospital for evaluation and treatment of Crohn's disease with abscess and he underwent a procedure open partial sigmoidectomy colostomy ileocecostomy was primary anastomosis. Psychiatric consultation was requested to evaluate for depression and anxiety and recommend medication and treatment. Review of the chart was negative for any history of mental health's treatment or psychiatric treatment in the system. From the record patient had some family related stress and related to separation from his girlfriend and not being able to see his children otherwise he has a history of nicotine dependence. Patient also is treated for severe protein calorie malnutrition with TPN. Labs medication medical records were reviewed. Patient denied having any history of mental health treatment denied having any history of suicidal ideation or plans or attempts he understands that currently he is under stress related to having surgery and in addition to some family stress he believe he would be able to cope with the situation but at the same time he was willing and open to follow recommendation of outpatient treatment or medication. CC: Lea Ellison MD Past Med Surg Social Fam HX - Past Medical History Medical history: other - Past Psychiatric History Psychiatric history: Reports: no psych history - Past Surgical History Surgical History: other (Intra-abdominal abscess drain placement 2017, kidney stone) - Social History Smoking Status: Current every day smoker Smokeless Tobacco Status: No Alcohol use: none Drug use: none - Family History Sister Living Status: Still Living Hx Family Cancer: Yes (BRCA stage 4) Medications & Allergies Ciprofloxacin [Cipro] 500 mg PO BID 05/18/17 [History] metroNIDAZOLE [Flagyl] 500 mg PO BID 05/18/17 [History] 3 Allergy/AdvReac Type Severity Reaction Status Date / Time NSAIDS (Non-Steroidal Allergy Severe Abdominal Verified 05/19/17 10:08 Anti-Inflamma Pain Penicillins [PCN] Allergy Hives Verified 05/18/17 12:07 Review of Systems Psychiatric: Reports: depression, anxiety Psychiatry Exam - Constitutional Vitals: Temp Pulse Resp BP Pulse Ox 97.5 F L 67 16 122/78 98 05/22/17 11:12 05/22/17 11:12 05/22/17 11:12 05/22/17 11:12 05/22/17 11:12 General appearance: age & developmentally appropriate, unkempt, malnourished - Musculoskeletal Gait: normal Station: relaxed Strength & Tone: normal for patient - Psychiatric Patient Orientation: Yes Person, Yes Time, Yes Place Level of alertness: Alert Behavior: calm, cooperative, withdrawn Psychomotor activity: Slowed Eye Contact: Maintains Eye Contact Mood Description: Euthymic/stable, Anxious Affect description: congruent with mood, constricted Speech Volume: Normal Speech pattern: normal rate, normal rhythm, normal tone, fluent, spontaneous Language & Vocabulary: consistent with education, limited Thought Process: Linear, Goal Oriented Thought Content: No Suicidal ideation, No Homicidal ideation, No Overt delusions Perceptual Disturbances: No Auditory hallucinations, No Visual hallucinations Attention Span Ability: Capable of Focused Attention Memory Description: Grossly Intact Patient Reliability: Reliable Historian Fund of knowledge: Yes abstraction ability, Yes aware of current events Intelligence Estimate: Average Judgment: Limited Insight: Partial Results - Labs Labs: Laboratory Last Values WBC 11.0 K/mcL (4.3-11.1) 05/22/17 10:30 RBC 4.43 M/mcL (4.19-5.50) 05/22/17 10:30 Hgb 10.6 g/dL (12.9-16.9) L 05/22/17 10:30 Hct 33.8 % (37.5-50.1) L 05/22/17 10:30 MCV 76.3 fL (83.0-100.0) L 05/22/17 10:30 MCH 23.9 pg (28.0-33.3) L 05/22/17 10:30 MCHC 31.4 g/dL (31.6-35.5) L 05/22/17 10:30 RDW 15.1 % (11.5-14.5) H 05/22/17 10:30 Plt Count 399 K/mcL (140-400) 05/22/17 10:30 MPV 9.3 fL (9.4-12.4) L 05/22/17 10:30 Immature Gran % 0.5 % (0-4) 05/22/17 10:30 Seg Neutrophils % 71.8 % 05/22/17 10:30 Lymphocytes % 18.9 % 05/22/17 10:30 Monocytes % 7.7 % 05/22/17 10:30 Eosinophils % 0.8 % 05/22/17 10:30 Basophils % 0.3 % 05/22/17 10:30 Neutrophils # 7.9 K/mcL (1.6-8.9) 05/22/17 10:30 Lymphocytes # 2.1 K/mcL (0.6-4.6) 05/22/17 10:30 Monocytes # 0.9 K/mcL (0.0-1.3) 05/22/17 10:30 Eosinophils # 0.1 K/mcL (0.0-0.6) 05/22/17 10:30 Basophils # 0.0 K/mcL (0.0-0.2) 05/22/17 10:30 Nucleated RBCs/100 WBC 0.3 /100 WBC (0) H 05/22/17 10:30 Sodium 135 mEq/L (136-145) L 05/22/17 06:05 Potassium 4.4 mEq/L (3.5-5.1) 05/22/17 06:05 Chloride 105 mEq/L (98-107) 05/22/17 06:05 Carbon Dioxide 26 mEq/L (23-29) 05/22/17 06:05 BUN 12 mg/dL (6-20) 05/22/17 06:05 Creatinine 0.64 mg/dL (0.70-1.30) L 05/22/17 06:05 Est GFR ( Amer) > 60 (> 60) 05/22/17 06:05 Est GFR (Non-Af Amer) > 60 (> 60) 05/22/17 06:05 BUN/Creatinine Ratio 19 (6-26) 05/22/17 06:05 Glucose 100 mg/dL (70-105) 05/22/17 06:05 POC Glucose 116 (58-89) H 05/22/17 11:19 Calculated Osmolality 280 (280-300) 05/22/17 06:05 Calcium 8.6 mg/dL (8.6-10.3) 05/22/17 06:05 Phosphorus 3.5 mg/dL (2.7-4.5) 05/22/17 06:05 Magnesium 1.9 mg/dL (1.6-2.6) 05/22/17 06:05 Prealbumin 13.8 mg/dL (17.0-34.0) L 05/18/17 13:11 Triglycerides 74 mg/dL (< 150) 05/19/17 03:30 - Impressions Impressions Chest X-Ray 05/22/17 10:13 IMPRESSION: 1. Mild right hemidiaphragm elevation and right basilar atelectasis. 2. Otherwise, no acute cardiopulmonary abnormality. 3. Small amount of free intraperitoneal gas below the left hemidiaphragm, consistent with provided history of recent abdominal surgery. D/ / Lorne Santiago MD / Lorne Santiago MD Interpreting Provider: Lorne Santiago MD Consult Discharge Plan - Plan Referrals: Albina Marroquin, KAVIN [Primary Care Provider] -
[2017-05-22] MEDS ORDERED: Clinimix E 5%-20% SOLUTION 2,000 ML with MVI, adult with vitamin K 10 ML IVC SCH (17:00)
[2017-05-22] MEDS ORDERED: 0.9 % Sodium Chloride 500 ML ONE (20:52)
[2017-05-23] MEDS: *HR* HYDROmorphone 20 MG/20 ML PCA IVC PRN ×2 (00:18→13:25)
[2017-05-23] MEDS: Acetaminophen IV 1,000 MG/100 ML INFUS..BTL IVPB SCH ×3 (03:09→19:39)
[2017-05-23] MEDS: Ipratropium/Albuterol Neb 3 ML IH SCH ×6 (03:44→23:46)
[2017-05-23 05:49] LABS: BUN/Creatinine Ratio 21 (6-26); Blood Urea Nitrogen 13 mg/dL (6-20); Carbon Dioxide 25 mEq/L (23-29); Chloride 103 mEq/L (98-107); Glucose 75 mg/dL (70-105); Osmolality,Calculated 277 (280-300); Potassium 4.2 mEq/L (3.5-5.1); Sodium 134 mEq/L (136-145); eGFR For African Americans > 60 (> 60); eGFR For Non-African Americans > 60 (> 60)
[2017-05-23] MEDS: MetroNIDAZOLE 500 MG/100 ML 500 MG/100 ML BAG IVPB SCH ×3 (06:38→23:30)
[2017-05-23] MEDS: *HR* Heparin 5,000 UNIT/ML VIAL SQ SCH ×2 (06:38→16:48)
[2017-05-23 09:49] LABS: Basophils % 0.3 %; Eosinophils # 0.2 K/mcL (0.0-0.6); Eosinophils % 1.9 %; Hematocrit 32.8 % (37.5-50.1); Hemoglobin 10.1 g/dL (12.9-16.9); Immature Granulocytes % 0.6 % (0-4); Lymphocytes # 1.6 K/mcL (0.6-4.6); Mean Corpuscular HGB Conc 30.8 g/dL (31.6-35.5); Mean Corpuscular Hemoglobin 23.5 pg (28.0-33.3); Mean Corpuscular Volume 76.5 fL (83.0-100.0); Mean Platelet Volume 9.8 fL (9.4-12.4); Monocytes # 0.7 K/mcL (0.0-1.3); Monocytes % 7.9 %; Neutrophils # 6.4 K/mcL (1.6-8.9); Platelet Count 375 K/mcL (140-400); Red Blood Count 4.29 M/mcL (4.19-5.50); Segmented Neutrophils % 71.3 %
[2017-05-23] MEDS: Pantoprazole 40 MG VIAL IVP SCH (11:52)
--- NOTE | 2017-05-23 12:22 | General Surgery Progress Note ---
Date of Encounter: 05/23/17 Time of Encounter: 12:20 - Assessment and Plan (1) Crohn's disease with abscess Current Visit: Yes Status: Chronic POD #2 Open partial sigmoidectomy, colostomy, ileocectomy with primary anastomosis with Dr. 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 labs Qualifiers: Gastrointestinal tract location: unspecified location Qualified Code(s): K50.914 - Crohn's disease, unspecified, with abscess (2) Depression with anxiety Current Visit: Yes Status: Acute Psych consult complete Recommend mirtazapine 15mg PO at bedtime Outpatient follow-up (3) Tobacco dependence Current Visit: Yes Status: Acute smoking cessation education (4) Severe protein-calorie malnutrition Current Visit: Yes Status: Chronic Continue TPN at goal rate 83.3ml/hour while awaiting return of bowel function Home Help Aide for management of TPN Subjective Patient reports: no new complaints, feels better, still having pain, pain is less, voiding w/o difficulty, no flatus, no bowel movement, afebrile, other ( Denies nausea but admits to belching; out of bed to chair) Objective Vital Signs - Last 8 Hours Temp Pulse Resp BP Pulse Ox 05/23/17 11:04 97.4 F L 78 16 112/72 97 05/23/17 07:20 97.5 F L 70 16 98/59 97 Intake and Output 05/22/17 05/23/17 05/23/17 23:59 07:59 15:59 Intake Total 2085 200 / 200 Output Total 700 / 700 1400 / 1400 500 / 500 Balance 1386 / 1386 -1200 / -1200 -500 / -500 Intake: IV Fluids 2085 200 / 200 Clinimix E 5%-20% SOLUTION 2, 1686 / 1686 000 ML @ 83.3 mls/hr IVC .Q24H AL[facility]A with M.v.i. Adult 10 ml Rx# :[id number] Ofirmev 1,000 mg/100 ml 1,000 100 / 100 100 / 100 mg In 100 ml @ 400 mls/hr IVPB Q8H [facility]A Rx#:[id number] Cipro Premix 400 MG/200 ML 400 200 / 200 mg In 200 ml @ 200 mls/hr IVPB Q12H [facility]A Rx#:[id number] Flagyl Premix 500 MG/100 ML 500 100 / 100 100 / 100 mg In 100 ml @ 100 mls/hr IVPB Q8H ALYSSA Rx#:[id number] Oral 0 / 0 0 / 0 Output: Urine 700 / 700 1400 / 1400 500 / 500 Wound Drainage 0 / 0 0 / 0 0 / 0 Right Lower Abdomen 0 / 0 0 / 0 0 / 0 Other: Meal NPO NPO for breakfast Percent of Meal Consumed 0% # Bowel Movements 0 0 0 Weight 82.871 kg Blood Glucose* 102 127 106 Patient Weight 05/23/17 23:59 Weight 82.871 kg - General physical appearance well developed, no distress - Eyes normal ocular movement - ENT dry mucosa, atraumatic, normocephalic - Neck Neck exam: trachea midline - Respiratory normal respiratory effort, clear to auscultation - Cardiovascular Cardiovascular exam: Present: RRR - Abdomen Abdomen: Present: bowel sounds present (minimal, hypoactive), soft, tender ( Expected postoperative tenderness), wound (Ostomy is pink and moist with no flatus or stool noted; pigtail drain with purulent drainage noted (scant amount in tubing)) - Incision Incision: Present: clean and dry, intact - Neurologic CN 2-12 grossly intact - Psychiatric oriented to time, oriented to person, oriented to place, speech is normal, memory intact - Labs 05/23/17 09:40 05/23/17 05:00 Diabetes panel 05/23/17 Range/Units 05:00 Sodium 134 L (136-145) mEq/L Potassium 4.2 (3.5-5.1) mEq/L Chloride 103 (98-107) mEq/L Carbon Dioxide 25 (23-29) mEq/L BUN 13 (6-20) mg/dL Creatinine 0.63 L (0.70-1.30) mg/dL Glucose 75 (70-105) mg/dL Calcium 9.0 (8.6-10.3) mg/dL Calcium panel 05/23/17 Range/Units 05:00 Calcium 9.0 (8.6-10.3) mg/dL Phosphorus 4.0 (2.7-4.5) mg/dL Pituitary panel 05/23/17 Range/Units 05:00 Sodium 134 L (136-145) mEq/L Potassium 4.2 (3.5-5.1) mEq/L Chloride 103 (98-107) mEq/L Carbon Dioxide 25 (23-29) mEq/L BUN 13 (6-20) mg/dL Creatinine 0.63 L (0.70-1.30) mg/dL Glucose 75 (70-105) mg/dL Calcium 9.0 (8.6-10.3) mg/dL Adrenal panel 05/23/17 Range/Units 05:00 Sodium 134 L (136-145) mEq/L Potassium 4.2 (3.5-5.1) mEq/L Chloride 103 (98-107) mEq/L Carbon Dioxide 25 (23-29) mEq/L BUN 13 (6-20) mg/dL Creatinine 0.63 L (0.70-1.30) mg/dL Glucose 75 (70-105) mg/dL Calcium 9.0 (8.6-10.3) mg/dL - VTE Documentation of Mechanical Device: Intermittent pneumatic compression device Consult Discharge Plan - Plan Referrals: Albina Marroquin, APPLICATIONS ENGINEER [Primary Care Provider] - - Attending Attestation For this encounter, I have reviewed the DEPUTY FIRE MARSHAL or PA documentation, treatment plan, and medical decision making; and I have had face to face time with this patient.
[2017-05-23] MEDS ORDERED: Clinimix E 5%-20% SOLUTION 2,000 ML with MVI, adult with vitamin K 10 ML IVC SCH (17:00)
[2017-05-23] MEDS ORDERED: 0.9 % Sodium Chloride 500 ML ONE (17:07)
[2017-05-23] MEDS: Mirtazapine 15 MG TABLET PO SCH (20:38)
[2017-05-24] MEDS: *HR* HYDROmorphone 20 MG/20 ML PCA IVC PRN ×2 (00:36→17:37)
[2017-05-24] MEDS: Acetaminophen IV 1,000 MG/100 ML INFUS..BTL IVPB SCH ×3 (04:05→20:40)
[2017-05-24] MEDS: Ipratropium/Albuterol Neb 3 ML IH SCH ×6 (04:36→23:44)
[2017-05-24] MEDS: *HR* Heparin 5,000 UNIT/ML VIAL SQ SCH ×2 (06:30→18:59)
[2017-05-24] MEDS: MetroNIDAZOLE 500 MG/100 ML 500 MG/100 ML BAG IVPB SCH ×2 (06:32→15:11)
[2017-05-24 07:28] LABS: Basophils % 0.5 %; Eosinophils # 0.2 K/mcL (0.0-0.6); Eosinophils % 2.4 %; Hematocrit 34.3 % (37.5-50.1); Hemoglobin 10.6 g/dL (12.9-16.9); Immature Granulocytes % 0.6 % (0-4); Lymphocytes # 2.5 K/mcL (0.6-4.6); Mean Corpuscular HGB Conc 30.9 g/dL (31.6-35.5); Mean Corpuscular Hemoglobin 23.5 pg (28.0-33.3); Mean Corpuscular Volume 75.9 fL (83.0-100.0); Mean Platelet Volume 9.5 fL (9.4-12.4); Monocytes # 0.7 K/mcL (0.0-1.3); Monocytes % 8.7 %; Neutrophils # 4.9 K/mcL (1.6-8.9); Platelet Count 414 K/mcL (140-400); Red Blood Count 4.52 M/mcL (4.19-5.50); Red Cell Distribution Width 14.9 % (11.5-14.5); Segmented Neutrophils % 57.8 %
--- NOTE | 2017-05-24 08:41 | General Surgery Progress Note ---
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 CBC for today pending. His abdominal exam is as expected for day one postoperatively. Update: WBC unremarkable. Pt with anemia likely of chronic disease; iron studies pending Plan: -NPO, await return of bowel function, PICC and TPN -continue supportive care and discomfort management: continue current discomfort management -replace electrolytes as indicated - Continue G.I. and DVT prophylaxis -out of bed to chair at least 3 times daily -EPCDs while in bed -heparin subacute 5000 units b.i.d. -serial abdominal exams -repeat a.m. labs Qualifiers: Gastrointestinal tract location: unspecified location Qualified Code(s): K50.914 - Crohn's disease, unspecified, with abscess (2) Painful respiratory movement Current Visit: Yes Status: Acute Resolved. Continue aggressive pulmonary toileting (3) Severe protein-calorie malnutrition Current Visit: Yes Status: Chronic Continue TPN. Repeat a.m. labs limited clears (4) Depression with anxiety Current Visit: Yes Status: Acute Appreciate recommendations per site consult. Mirtazapine started last night. Patient states this was effective for assisting in sleep. (5) Tobacco dependence Current Visit: Yes Status: Acute See assessment and plan for painful respirations above. Patient noted to have vapor cigarettes at bedside. He is reminded that this is against hospital policy. Patient verbalized understanding. (6) Anemia Current Visit: Yes Status: Acute Iron studies pending. See assessment and plan above Qualifiers: Anemia type: unspecified type Qualified Code(s): D64.9 - Anemia, unspecified Subjective Patient reports: no new complaints, feels better, still having pain, pain is less, tolerating liquids well, voiding w/o difficulty, no flatus, no bowel movement, afebrile Narrative: Denies nausea or vomiting. He reports that his abdominal discomfort is well controlled with the current regimen. He states he has been out of bed and has ambulating in the hallways. He denies noticing any gas and has colostomy. Objective Vital Signs - Last 8 Hours Temp Pulse Resp BP Pulse Ox 05/24/17 07:35 98.3 F 70 16 102/63 98 05/24/17 03:54 99.2 F 70 14 98/60 97 Intake and Output 05/23/17 05/24/17 05/24/17 23:59 07:59 15:59 Intake Total 400 / 400 650 / 650 100 / 100 Output Total 1100 / 1100 900 / 900 Balance -700 / -700 -250 / -250 100 / 100 Intake: IV Fluids 400 / 400 650 / 650 100 / 100 Ofirmev 1,000 mg/100 ml 1,000 100 / 100 100 / 100 mg In 100 ml @ 400 mls/hr IVPB Q8H [facility] Rx#:[id number] Cipro Premix 400 MG/200 ML 400 200 / 200 200 / 200 mg In 200 ml @ 200 mls/hr IVPB Q12H [facility] Rx#:[id number] Intralipid 20% 250 ML @ 21 mls/ 250 / 250 hr IVPB DAILY@1700 [facility] Rx#: [id number] Flagyl Premix 500 MG/100 ML 500 100 / 100 100 / 100 100 / 100 mg In 100 ml @ 100 mls/hr IVPB Q8H [facility] Rx#:[id number] Oral 0 / 0 0 / 0 Output: Urine 1100 / 1100 900 / 900 Wound Drainage 0 / 0 Right Lower Abdomen 0 / 0 Other: # Bowel Movements 0 Weight 82.826 kg Blood Glucose* 108 123 Patient Weight 05/24/17 23:59 Weight 82.826 kg - General physical appearance no distress, chronically ill - Eyes normal ocular movement - ENT normal nares, normal mucosa - Neck Neck exam: no masses, trachea midline, no venous distension - Respiratory normal expansion, normal respiratory effort, clear to auscultation - Cardiovascular Cardiovascular exam: Present: RRR - Abdomen Abdomen: Present: bowel sounds present, soft, tender (Expected postoperative), wound (Stoma is boggy, pink, moist, small amount of bowel sweat noted; MILAD drain with small amount of cloudy foul-smelling output.) Hernia: none - Incision Incision: Present: clean and dry, intact - Integumentary no rash, no growths - Neurologic CN 2-12 grossly intact, normal coordination, normal sensation - Musculoskeletal normal gait, normal posture - Psychiatric oriented to time, oriented to person, oriented to place, speech is normal, memory intact - Labs 05/24/17 06:59 05/24/17 06:59 - VTE Documentation of Mechanical Device: Intermittent pneumatic compression device Consult Discharge Plan - Plan Referrals: Albina Marroquin, KAVIN [Primary Care Provider] - <Lea Ellison - Last Filed: 05/24/17 11:51> Date of Encounter: 05/24/17 - Assessment and Plan (1) Crohn's disease with abscess Current Visit: Yes Status: Chronic continue abx start limited clears continue tpn gi/dvt prophylaxis prn pain control Qualifiers: Gastrointestinal tract location: unspecified location Qualified Code(s): K50.914 - Crohn's disease, unspecified, with abscess (2) Severe protein-calorie malnutrition Current Visit: Yes Status: Chronic (3) Tobacco dependence Current Visit: Yes Status: Acute (4) Abdominal pain Current Visit: No Status: Acute Qualifiers: Abdominal location: right lower quadrant Qualified Code(s): R10.31 - Right lower quadrant pain (5) Depression with anxiety Current Visit: Yes Status: Acute Subjective Patient reports: feels better, still having pain, pain is less, voiding w/o difficulty, no flatus, no bowel movement, afebrile Objective Vital Signs - Last 8 Hours Temp Pulse Resp BP Pulse Ox 05/24/17 07:35 98.3 F 70 16 102/63 98 05/24/17 03:54 99.2 F 70 14 98/60 97 Intake and Output 05/23/17 05/24/17 05/24/17 23:59 07:59 15:59 Intake Total 400 / 400 650 / 650 200 / 200 Output Total 1100 / 1100 900 / 900 275 / 275 Balance -700 / -700 -250 / -250 -75 / -75 Intake: IV Fluids 400 / 400 650 / 650 200 / 200 Ofirmev 1,000 mg/100 ml 1,000 100 / 100 100 / 100 100 / 100 mg In 100 ml @ 400 mls/hr IVPB Q8H [facility] Rx#:[id number] Cipro Premix 400 MG/200 ML 400 200 / 200 200 / 200 mg In 200 ml @ 200 mls/hr IVPB Q12H [facility] Rx#:[id number] Intralipid 20% 250 ML @ 21 mls/ 250 / 250 hr IVPB DAILY@1700 [facility] Rx#: [id number] Flagyl Premix 500 MG/100 ML 500 100 / 100 100 / 100 100 / 100 mg In 100 ml @ 100 mls/hr IVPB Q8H [facility] Rx#:[id number] Oral 0 / 0 0 / 0 Output: Urine 1100 / 1100 900 / 900 275 / 275 Wound Drainage 0 / 0 0 / 0 Right Lower Abdomen 0 / 0 0 / 0 Other: # Bowel Movements 0 0 Weight 82.826 kg Blood Glucose* 108 123 106 Patient Weight 05/24/17 23:59 Weight 82.826 kg - General physical appearance well developed, no distress, chronically ill - Eyes PERRL, normal ocular movement - ENT normal mucosa, normocephalic - Neck Neck exam: trachea midline - Respiratory normal expansion, clear to auscultation - Cardiovascular Cardiovascular exam: Present: RRR - Abdomen Abdomen: Present: bowel sounds present (faint), soft, tender - Incision Incision: Present: clean and dry, intact - Integumentary no growths - Neurologic CN 2-12 grossly intact - Musculoskeletal normal posture - Psychiatric oriented to time, oriented to person, oriented to place, speech is normal, memory intact - Additional Exam Short CBC 05/24/17 Range/Units 06:59 WBC 8.4 (4.3-11.1) K/mcL Hgb 10.6 L (12.9-16.9) g/dL Hct 34.3 L (37.5-50.1) % Plt Count 414 H (140-400) K/mcL Neutrophils # 4.9 (1.6-8.9) K/mcL BMP 05/24/17 Range/Units 06:59 Sodium 135 L (136-145) mEq/L Potassium 4.4 (3.5-5.1) mEq/L Chloride 102 (98-107) mEq/L Carbon Dioxide 30 H (23-29) mEq/L BUN 12 (6-20) mg/dL Creatinine 0.79 (0.70-1.30) mg/dL Glucose 120 H (70-105) mg/dL Calcium 9.1 (8.6-10.3) mg/dL Vital Signs Temp Pulse Resp BP Pulse Ox 05/24/17 07:35 98.3 F 70 16 102/63 98 05/24/17 03:54 99.2 F 70 14 98/60 97 05/23/17 23:26 98.3 F 67 14 99/54 96 05/23/17 19:21 98.0 F 71 14 104/66 97 05/23/17 15:20 98.5 F 80 16 123/78 98 Intake and Output 05/23/17 05/24/17 05/24/17 23:59 07:59 15:59 Intake Total 400 / 400 650 / 650 200 / 200 Output Total 1100 / 1100 900 / 900 275 / 275 Balance -700 / -700 -250 / -250 -75 / -75 Intake: IV Fluids 400 / 400 650 / 650 200 / 200 Ofirmev 1,000 mg/100 ml 1,000 100 / 100 100 / 100 100 / 100 mg In 100 ml @ 400 mls/hr IVPB Q8H [facility] Rx#:[id number] Cipro Premix 400 MG/200 ML 400 200 / 200 200 / 200 mg In 200 ml @ 200 mls/hr IVPB Q12H [facility] Rx#:[id number] Intralipid 20% 250 ML @ 21 mls/ 250 / 250 hr IVPB DAILY@1700 [facility] Rx#: [id number] Flagyl Premix 500 MG/100 ML 500 100 / 100 100 / 100 100 / 100 mg In 100 ml @ 100 mls/hr IVPB Q8H [facility] Rx#:[id number] Oral 0 / 0 0 / 0 Output: Urine 1100 / 1100 900 / 900 275 / 275 Wound Drainage 0 / 0 0 / 0 Right Lower Abdomen 0 / 0 0 / 0 Other: # Bowel Movements 0 0 Weight 82.826 kg Blood Glucose* 108 123 106 Patient Weight 05/24/17 23:59 Weight 82.826 kg - Labs 05/24/17 06:59 05/24/17 06:59 Diabetes panel 05/24/17 Range/Units 06:59 Sodium 135 L (136-145) mEq/L Potassium 4.4 (3.5-5.1) mEq/L Chloride 102 (98-107) mEq/L Carbon Dioxide 30 H (23-29) mEq/L BUN 12 (6-20) mg/dL Creatinine 0.79 (0.70-1.30) mg/dL Glucose 120 H (70-105) mg/dL Calcium 9.1 (8.6-10.3) mg/dL Calcium panel 05/24/17 Range/Units 06:59 Calcium 9.1 (8.6-10.3) mg/dL Phosphorus 4.2 (2.7-4.5) mg/dL Pituitary panel 05/24/17 Range/Units 06:59 Sodium 135 L (136-145) mEq/L Potassium 4.4 (3.5-5.1) mEq/L Chloride 102 (98-107) mEq/L Carbon Dioxide 30 H (23-29) mEq/L BUN 12 (6-20) mg/dL Creatinine 0.79 (0.70-1.30) mg/dL Glucose 120 H (70-105) mg/dL Calcium 9.1 (8.6-10.3) mg/dL Adrenal panel 05/24/17 Range/Units 06:59 Sodium 135 L (136-145) mEq/L Potassium 4.4 (3.5-5.1) mEq/L Chloride 102 (98-107) mEq/L Carbon Dioxide 30 H (23-29) mEq/L BUN 12 (6-20) mg/dL Creatinine 0.79 (0.70-1.30) mg/dL Glucose 120 H (70-105) mg/dL Calcium 9.1 (8.6-10.3) mg/dL - Attending Attestation I have personally performed a face to face evaluation on this patient. I have reviewed and agree with the care plan. History and Exam by me shows:
[2017-05-24] MEDS: Pantoprazole 40 MG VIAL IVP SCH (09:29)
[2017-05-24 09:43] LABS: BUN/Creatinine Ratio 15 (6-26); Blood Urea Nitrogen 12 mg/dL (6-20); Calcium 9.1 mg/dL (8.6-10.3); Carbon Dioxide 30 mEq/L (23-29); Chloride 102 mEq/L (98-107); Glucose 120 mg/dL (70-105); Magnesium 2.1 mg/dL (1.6-2.6); Osmolality,Calculated 281 (280-300); Phosphorous 4.2 mg/dL (2.7-4.5); Potassium 4.4 mEq/L (3.5-5.1); Sodium 135 mEq/L (136-145); eGFR For African Americans > 60 (> 60); eGFR For Non-African Americans > 60 (> 60)
[2017-05-24] MEDS ORDERED: 0.9 % Sodium Chloride 500 ML ONE (13:20)
[2017-05-24 15:46] LABS: % Iron Saturation 8 % (20-55); Iron 25 mcg/dL (65-175); Transferrin 211 mg/dL (203-362)
[2017-05-24] MEDS ORDERED: Clinimix E 5%-20% SOLUTION 2,000 ML with MVI, adult with vitamin K 10 ML IVC SCH (17:00)
[2017-05-24] MEDS: Iron Sucrose Complex 200 MG in 0.9 % Sodium Chloride 100 ML IVPB SCH (17:45)
[2017-05-24] MEDS: *HR* LORazepam 0.5 MG TABLET PO PRN (18:59)
[2017-05-24] MEDS: Mirtazapine 15 MG TABLET PO SCH (20:15)
[2017-05-25] MEDS: MetroNIDAZOLE 500 MG/100 ML 500 MG/100 ML BAG IVPB SCH ×4 (00:06→23:12)
[2017-05-25] MEDS: Acetaminophen IV 1,000 MG/100 ML INFUS..BTL IVPB SCH ×3 (04:08→18:06)
[2017-05-25] MEDS: Ipratropium/Albuterol Neb 3 ML IH SCH ×6 (04:30→23:38)
[2017-05-25] MEDS: *HR* Heparin 5,000 UNIT/ML VIAL SQ SCH ×2 (06:17→16:56)
[2017-05-25 06:26] LABS: Basophils % 0.6 %; Eosinophils # 0.2 K/mcL (0.0-0.6); Eosinophils % 3.3 %; Hematocrit 36.4 % (37.5-50.1); Hemoglobin 11.4 g/dL (12.9-16.9); Immature Granulocytes % 0.5 % (0-4); Lymphocytes # 2.5 K/mcL (0.6-4.6); Lymphocytes % 36.9 %; Mean Corpuscular HGB Conc 31.3 g/dL (31.6-35.5); Mean Corpuscular Hemoglobin 23.5 pg (28.0-33.3); Mean Corpuscular Volume 75.1 fL (83.0-100.0); Monocytes # 0.6 K/mcL (0.0-1.3); Monocytes % 8.4 %; Neutrophils # 3.4 K/mcL (1.6-8.9); Platelet Count 444 K/mcL (140-400); Red Blood Count 4.85 M/mcL (4.19-5.50); Red Cell Distribution Width 15.1 % (11.5-14.5); Segmented Neutrophils % 50.3 %
[2017-05-25 06:35] LABS: BUN/Creatinine Ratio 20 (6-26); Blood Urea Nitrogen 13 mg/dL (6-20); Calcium 9.1 mg/dL (8.6-10.3); Carbon Dioxide 27 mEq/L (23-29); Chloride 101 mEq/L (98-107); Glucose 97 mg/dL (70-105); Osmolality,Calculated 284 (280-300); Phosphorous 4.4 mg/dL (2.7-4.5); Potassium 4.1 mEq/L (3.5-5.1); Sodium 137 mEq/L (136-145); Triglycerides 54 mg/dL (< 150); eGFR For African Americans > 60 (> 60); eGFR For Non-African Americans > 60 (> 60)
[2017-05-25] MEDS: *HR* HYDROmorphone 20 MG/20 ML PCA IVC PRN ×2 (10:18→21:59)
[2017-05-25] MEDS: Pantoprazole 40 MG VIAL IVP SCH (10:19)
[2017-05-25] MEDS ORDERED: 0.9 % Sodium Chloride 500 ML ONE (10:31)
[2017-05-25] MEDS: Iron Sucrose Complex 200 MG in 0.9 % Sodium Chloride 100 ML IVPB SCH (10:32)
--- NOTE | 2017-05-25 13:24 | General Surgery Progress Note ---
<Sklya Cueva Martha - Last Filed: 05/25/17 13:21> Date of Encounter: 05/25/17 Time of Encounter: 13:15 - Assessment and Plan (1) Crohn's disease with abscess Current Visit: Yes Status: Chronic POD #4 Open partial sigmoidectomy, colostomy, ileocectomy with primary anastomosis with Dr. Ellison Pathology- A. Sigmoid colon, segmental resection: Diverticulosis and diverticulitis with pericolic abscess. See comment. Lymph nodes with follicular hyperplasia. B. Terminal ileum and cecum, right colectomy: Transmural enteritis consistent with Crohns disease. Lymph nodes with follicular hyperplasia. 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 labs Qualifiers: Gastrointestinal tract location: unspecified location Qualified Code(s): K50.914 - Crohn's disease, unspecified, with abscess (2) Depression with anxiety Current Visit: Yes Status: Acute Psych consult complete Recommend mirtazapine 15mg PO at bedtime Outpatient follow-up (3) Tobacco dependence Current Visit: Yes Status: Acute smoking cessation education (4) Severe protein-calorie malnutrition Current Visit: Yes Status: Chronic Continue TPN at goal rate 83.3ml/hour while awaiting return of bowel function Seam Sewer for management of TPN Subjective Patient reports: no new complaints, still having pain, pain is less, tolerating liquids well, voiding w/o difficulty, no flatus, no bowel movement, afebrile Objective Vital Signs - Last 8 Hours Temp Pulse Resp BP Pulse Ox 05/25/17 12:17 97.9 F 68 18 108/72 98 05/25/17 11:47 97 05/25/17 07:25 97.7 F 57 18 109/71 97 Intake and Output 05/24/17 05/25/17 05/25/17 23:59 07:59 15:59 Intake Total 830 / 830 890 / 890 210 / 210 Output Total 1300 / 1300 1450 / 1450 500 / 500 Balance -470 / -470 -560 / -560 -290 / -290 Intake: IV Fluids 410 / 410 650 / 650 210 / 210 Ofirmev 1,000 mg/100 ml 1,000 100 / 100 100 / 100 mg In 100 ml @ 400 mls/hr IVPB Q8H [facility] Rx#:[id number] Cipro Premix 400 MG/200 ML 400 200 / 200 200 / 200 mg In 200 ml @ 200 mls/hr IVPB Q12H [facility] Rx#:[id number] Intralipid 20% 250 ML @ 21 mls/ 250 / 250 hr IVPB DAILY@1700 [facility] Rx#: [id number] Venofer 200 MG In 0.9 % Sodium 110 / 110 110 / 110 Chloride 100 ML @ 200 mls/hr IVPB DAILY [facility] Rx#:[id number] Flagyl Premix 500 MG/100 ML 500 100 / 100 100 / 100 mg In 100 ml @ 100 mls/hr IVPB Q8H [facility] Rx#:[id number] Oral 420 / 420 240 / 240 0 / 0 Output: Urine 1300 / 1300 1450 / 1450 500 / 500 Stool 0 / 0 Wound Drainage 0 / 0 0 / 0 0 / 0 Right Lower Abdomen 0 / 0 0 / 0 0 / 0 Other: Meal Dinner Percent of Meal Consumed 0% # Bowel Movements 0 Weight 82.826 kg Blood Glucose* 98 134 104 Patient Weight 05/25/17 23:59 Weight 82.826 kg - General physical appearance well developed, no distress - Eyes normal ocular movement - ENT normal mucosa, atraumatic, normocephalic - Neck Neck exam: trachea midline - Respiratory normal respiratory effort, clear to auscultation - Cardiovascular Cardiovascular exam: Present: RRR - Abdomen Abdomen: Present: bowel sounds present, soft, tender (Expected postoperative tenderness), wound (Pigtail drain with scant amount of purulent drainage noted in bulb, serous drainage noted in tubing) - Incision Incision: Present: clean and dry, intact - Neurologic CN 2-12 grossly intact - Psychiatric oriented to time, oriented to person, oriented to place, speech is normal, memory intact - Labs 05/25/17 05:31 05/25/17 05:31 Diabetes panel 05/25/17 Range/Units 05:31 Sodium 137 (136-145) mEq/L Potassium 4.1 (3.5-5.1) mEq/L Chloride 101 (98-107) mEq/L Carbon Dioxide 27 (23-29) mEq/L BUN 13 (6-20) mg/dL Creatinine 0.64 L (0.70-1.30) mg/dL Glucose 97 (70-105) mg/dL Calcium 9.1 (8.6-10.3) mg/dL Triglycerides 54 (< 150) mg/dL Calcium panel 05/25/17 Range/Units 05:31 Calcium 9.1 (8.6-10.3) mg/dL Phosphorus 4.4 (2.7-4.5) mg/dL Pituitary panel 05/25/17 Range/Units 05:31 Sodium 137 (136-145) mEq/L Potassium 4.1 (3.5-5.1) mEq/L Chloride 101 (98-107) mEq/L Carbon Dioxide 27 (23-29) mEq/L BUN 13 (6-20) mg/dL Creatinine 0.64 L (0.70-1.30) mg/dL Glucose 97 (70-105) mg/dL Calcium 9.1 (8.6-10.3) mg/dL Adrenal panel 05/25/17 Range/Units 05:31 Sodium 137 (136-145) mEq/L Potassium 4.1 (3.5-5.1) mEq/L Chloride 101 (98-107) mEq/L Carbon Dioxide 27 (23-29) mEq/L BUN 13 (6-20) mg/dL Creatinine 0.64 L (0.70-1.30) mg/dL Glucose 97 (70-105) mg/dL Calcium 9.1 (8.6-10.3) mg/dL - VTE Documentation of Mechanical Device: Intermittent pneumatic compression device Consult Discharge Plan - Plan Referrals: Albina Marroquin, MANPOWER DEVELOPMENT MANAGER [Primary Care Provider] - - Attending Attestation For this encounter, I have reviewed the MUSIC PROMOTER or PA documentation, treatment plan, and medical decision making; and I have had face to face time with this patient. 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 oxycodone SL gi/dvt prophylaxis ok shower ambulate halls/OOB to chair with meals colostomy education continue antibiotics, continue MILAD drain/purulent drainage, normal wbc Qualifiers: Gastrointestinal tract location: unspecified location Qualified Code(s): K50.914 - Crohn's disease, unspecified, with abscess (2) Severe protein-calorie malnutrition Current Visit: Yes Status: Chronic (3) Tobacco dependence Current Visit: Yes Status: Acute (4) Depression with anxiety Current Visit: Yes Status: Acute Subjective Patient reports: no new complaints, still having pain, tolerating liquids well, voiding w/o difficulty, no flatus, no bowel movement, afebrile Objective Vital Signs - Last 8 Hours Temp Pulse Resp BP Pulse Ox 05/25/17 19:20 97.5 F L 73 16 100/64 96 05/25/17 14:56 98.3 F 68 18 106/70 97 Intake and Output 05/25/17 05/25/17 05/25/17 07:59 15:59 23:59 Intake Total 990 / 990 210 / 210 300 / 300 Output Total 1450 / 1450 1300 / 1300 660 / 660 Balance -460 / -460 -1090 / -1090 -360 / -360 Intake: IV Fluids 750 / 750 210 / 210 200 / 200 Ofirmev 1,000 mg/100 ml 1,000 100 / 100 100 / 100 100 / 100 mg In 100 ml @ 400 mls/hr IVPB Q8H [facility] Rx#:[id number] Cipro Premix 400 MG/200 ML 400 200 / 200 mg In 200 ml @ 200 mls/hr IVPB Q12H [facility] Rx#:[id number] Intralipid 20% 250 ML @ 21 mls/ 250 / 250 hr IVPB DAILY@1700 [facility] Rx#: [id number] Venofer 200 MG In 0.9 % Sodium 110 / 110 Chloride 100 ML @ 200 mls/hr IVPB DAILY [facility] Rx#:[id number] Flagyl Premix 500 MG/100 ML 500 200 / 200 100 / 100 mg In 100 ml @ 100 mls/hr IVPB Q8H [facility] Rx#:[id number] Oral 240 / 240 0 / 0 100 / 100 Output: Urine 1450 / 1450 1300 / 1300 650 / 650 Stool 0 / 0 Wound Drainage 0 / 0 0 / 0 10 / 10 Right Lower Abdomen 0 / 0 0 / 0 10 / 10 Other: Meal Dinner Percent of Meal Consumed 0% Weight 82.826 kg Blood Glucose* 134 104 108 Patient Weight 05/25/17 23:59 Weight 82.826 kg - General physical appearance well developed, no distress - Eyes PERRL, normal ocular movement - ENT normal mucosa, normocephalic - Neck Neck exam: trachea midline - Respiratory normal respiratory effort, clear to auscultation - Cardiovascular Cardiovascular exam: Present: RRR - Abdomen Abdomen: Present: bowel sounds present, soft, tender, wound - Incision Incision: Present: clean and dry, intact - Integumentary no growths - Neurologic CN 2-12 grossly intact - Musculoskeletal normal posture - Psychiatric oriented to time, speech is normal, memory intact - Labs 05/25/17 05:31 05/25/17 05:31 Diabetes panel 05/25/17 Range/Units 05:31 Sodium 137 (136-145) mEq/L Potassium 4.1 (3.5-5.1) mEq/L Chloride 101 (98-107) mEq/L Carbon Dioxide 27 (23-29) mEq/L BUN 13 (6-20) mg/dL Creatinine 0.64 L (0.70-1.30) mg/dL Glucose 97 (70-105) mg/dL Calcium 9.1 (8.6-10.3) mg/dL Triglycerides 54 (< 150) mg/dL Calcium panel 05/25/17 Range/Units 05:31 Calcium 9.1 (8.6-10.3) mg/dL Phosphorus 4.4 (2.7-4.5) mg/dL Pituitary panel 05/25/17 Range/Units 05:31 Sodium 137 (136-145) mEq/L Potassium 4.1 (3.5-5.1) mEq/L Chloride 101 (98-107) mEq/L Carbon Dioxide 27 (23-29) mEq/L BUN 13 (6-20) mg/dL Creatinine 0.64 L (0.70-1.30) mg/dL Glucose 97 (70-105) mg/dL Calcium 9.1 (8.6-10.3) mg/dL Adrenal panel 05/25/17 Range/Units 05:31 Sodium 137 (136-145) mEq/L Potassium 4.1 (3.5-5.1) mEq/L Chloride 101 (98-107) mEq/L Carbon Dioxide 27 (23-29) mEq/L BUN 13 (6-20) mg/dL Creatinine 0.64 L (0.70-1.30) mg/dL Glucose 97 (70-105) mg/dL Calcium 9.1 (8.6-10.3) mg/dL Vital Signs Temp Pulse Resp BP Pulse Ox 05/25/17 19:20 97.5 F L 73 16 100/64 96 05/25/17 14:56 98.3 F 68 18 106/70 97 05/25/17 12:17 97.9 F 68 18 108/72 98 05/25/17 11:47 97 05/25/17 07:25 97.7 F 57 18 109/71 97 05/25/17 04:07 98.1 F 65 15 105/69 96 05/25/17 00:32 98.1 F 67 16 120/75 97 Intake and Output 05/25/17 05/25/17 05/25/17 07:59 15:59 23:59 Intake Total 990 / 990 210 / 210 300 / 300 Output Total 1450 / 1450 1300 / 1300 660 / 660 Balance -460 / -460 -1090 / -1090 -360 / -360 Intake: IV Fluids 750 / 750 210 / 210 200 / 200 Ofirmev 1,000 mg/100 ml 1,000 100 / 100 100 / 100 100 / 100 mg In 100 ml @ 400 mls/hr IVPB Q8H [facility] Rx#:[id number] Cipro Premix 400 MG/200 ML 400 200 / 200 mg In 200 ml @ 200 mls/hr IVPB Q12H [facility] Rx#:[id number] Intralipid 20% 250 ML @ 21 mls/ 250 / 250 hr IVPB DAILY@1700 [facility] Rx#: [id number] Venofer 200 MG In 0.9 % Sodium 110 / 110 Chloride 100 ML @ 200 mls/hr IVPB DAILY [facility] Rx#:[id number] Flagyl Premix 500 MG/100 ML 500 200 / 200 100 / 100 mg In 100 ml @ 100 mls/hr IVPB Q8H [facility] Rx#:[id number] Oral 240 / 240 0 / 0 100 / 100 Output: Urine 1450 / 1450 1300 / 1300 650 / 650 Stool 0 / 0 Wound Drainage 0 / 0 0 / 0 10 Right Lower Abdomen 0 / 0 0 / 0 Other: Meal Dinner Percent of Meal Consumed 0% Weight 82.826 kg Blood Glucose* 134 104 108 Patient Weight 05/25/17 23:59 Weight 82.826 kg - Attending Attestation I have personally performed a face to face evaluation on this patient. I have reviewed and agree with the care plan. History and Exam by me shows:
--- NOTE | 2017-05-25 15:41 | Event Note ---
Date of Encounter: 05/25/17 Time of Encounter: 15:40 Lab follow-up. Noted anemia of chronic disease. Venofer 200 mg IV daily for 5 days.
[2017-05-25] MEDS ORDERED: Clinimix E 5%-20% SOLUTION 2,000 ML with MVI, adult with vitamin K 10 ML IVC SCH (17:00)
[2017-05-25] MEDS: Mirtazapine 15 MG TABLET PO SCH (20:52)
[2017-05-25] MEDS ORDERED: OXYCODONE Oral CONC 10 MG/0.5 ML ORAL.SYG SL PRN (22:00)
[2017-05-26] MEDS: OXYCODONE Oral CONC 10 MG/0.5 ML ORAL.SYG SL PRN (00:24)
[2017-05-26] MEDS: Ondansetron 4 MG/2 ML VIAL IVP PRN ×2 (00:50→21:36)
[2017-05-26] MEDS ORDERED: *HR* Promethazine 25 MG/ML VIAL IVP ONE ×2 (03:10→23:10)
[2017-05-26] MEDS: Acetaminophen IV 1,000 MG/100 ML INFUS..BTL IVPB SCH ×3 (03:16→18:44)
[2017-05-26] MEDS: Ipratropium/Albuterol Neb 3 ML IH SCH ×6 (03:49→23:08)
[2017-05-26] MEDS: *HR* HYDROmorphone 20 MG/20 ML PCA IVC PRN ×2 (04:07→18:54)
[2017-05-26] MEDS: *HR* Heparin 5,000 UNIT/ML VIAL SQ SCH ×2 (05:49→17:38)
[2017-05-26] MEDS: MetroNIDAZOLE 500 MG/100 ML 500 MG/100 ML BAG IVPB SCH ×3 (07:57→22:32)
[2017-05-26] MEDS: Pantoprazole 40 MG VIAL IVP SCH (08:02)
[2017-05-26 08:16] LABS: Magnesium 1.9 mg/dL (1.6-2.6); Phosphorous 2.9 mg/dL (2.7-4.5)
[2017-05-26 08:18] LABS: BUN/Creatinine Ratio 23 (6-26); Blood Urea Nitrogen 15 mg/dL (6-20); Calcium 9.6 mg/dL (8.6-10.3); Carbon Dioxide 26 mEq/L (23-29); Chloride 102 mEq/L (98-107); Glucose 131 mg/dL (70-105); Osmolality,Calculated 281 (280-300); Potassium 4.4 mEq/L (3.5-5.1); Sodium 134 mEq/L (136-145); eGFR For African Americans > 60 (> 60); eGFR For Non-African Americans > 60 (> 60)
[2017-05-26 08:44] LABS: Basophils # 0.1 K/mcL (0.0-0.2); Basophils % 0.4 %; Eosinophils # 0.1 K/mcL (0.0-0.6); Eosinophils % 0.7 %; Hematocrit 38.9 % (37.5-50.1); Hemoglobin 12.2 g/dL (12.9-16.9); Immature Granulocytes % 0.5 % (0-4); Lymphocytes # 1.8 K/mcL (0.6-4.6); Lymphocytes % 14.8 %; Mean Corpuscular HGB Conc 31.4 g/dL (31.6-35.5); Mean Corpuscular Hemoglobin 23.7 pg (28.0-33.3); Mean Corpuscular Volume 75.5 fL (83.0-100.0); Mean Platelet Volume 10.2 fL (9.4-12.4); Monocytes # 0.6 K/mcL (0.0-1.3); Neutrophils # 9.5 K/mcL (1.6-8.9); Platelet Count 503 K/mcL (140-400); Red Blood Count 5.15 M/mcL (4.19-5.50); Red Cell Distribution Width 15.1 % (11.5-14.5); Segmented Neutrophils % 78.6 %
[2017-05-26] MEDS: Iron Sucrose Complex 200 MG in 0.9 % Sodium Chloride 100 ML IVPB SCH (10:09)
[2017-05-26] MEDS ORDERED: Clinimix E 5%-20% SOLUTION 2,000 ML with MVI, adult with vitamin K 10 ML IVC SCH (17:00)
--- NOTE | 2017-05-26 18:23 | General Surgery Progress Note ---
<Lisandra Ibarra-Angie - Last Filed: 05/26/17 18:21> Date of Encounter: 05/26/17 Time of Encounter: 11:00 - Assessment and Plan (1) Crohn's disease with abscess Current Visit: Yes Status: Chronic POD #5 Open partial sigmoidectomy, colostomy, ileocectomy with primary anastomosis with Dr. Ellison Pathology- A. Sigmoid colon, segmental resection: Diverticulosis and diverticulitis with pericolic abscess. See comment. Lymph nodes with follicular hyperplasia. B. Terminal ileum and cecum, right colectomy: Transmural enteritis consistent with Crohns disease. Lymph nodes with follicular hyperplasia. Clear liquid diet Continue TPN- goal 83.3ml/hour Dietitian for management of TPN Supportive care and pain control- continue dilaudid BIT SETTER. Patient agrees with Dr. Lopez to attempt to discontinued the BIT SETTER tomorrow. IV antibiotics- Cipro and Flagyl Continue Pigtail drain GI prophylaxis Incentive spirometer every 1 hour while awake Out of bed to chair and ambulate hallways 3 times a day Ostomy education per wound care nurse Repeat a.m. labs Qualifiers: Gastrointestinal tract location: unspecified location Qualified Code(s): K50.914 - Crohn's disease, unspecified, with abscess (2) Depression with anxiety Current Visit: Yes Status: Acute Psych consult complete Recommend mirtazapine 15mg PO at bedtime Outpatient follow-up (3) Severe protein-calorie malnutrition Current Visit: Yes Status: Chronic Continue TPN at goal rate 83.3ml/hour while awaiting return of bowel function Yield Improvement Engineer for management of TPN (4) Tobacco dependence Current Visit: Yes Status: Acute smoking cessation education Subjective Patient reports: no new complaints, feels better, pain is less, tolerating liquids well, afebrile Objective Intake and Output 05/26/17 05/26/17 05/26/17 07:59 15:59 23:59 Intake Total 650 / 650 100 / 100 Output Total 575 / 575 600 / 600 Balance 75 / 75 -500 / -500 Intake: IV Fluids 650 / 650 100 / 100 Ofirmev 1,000 mg/100 ml 1,000 100 / 100 mg In 100 ml @ 400 mls/hr IVPB Q8H [facility] Rx#:[id number] Cipro Premix 400 MG/200 ML 400 200 / 200 mg In 200 ml @ 200 mls/hr IVPB Q12H [facility] Rx#:[id number] Intralipid 20% 250 ML @ 21 mls/ 250 / 250 hr IVPB DAILY@1700 [facility] Rx#: [id number] Flagyl Premix 500 MG/100 ML 500 100 / 100 100 / 100 mg In 100 ml @ 100 mls/hr IVPB Q8H [facility] Rx#:[id number] Oral 0 / 0 Output: Urine 575 / 575 600 / 600 Wound Drainage 0 / 0 Right Lower Abdomen 0 / 0 Other: Weight 82.865 kg Blood Glucose* 137 135 Patient Weight 05/26/17 23:59 Weight 82.865 kg - General physical appearance well developed, well nourished, no distress - Eyes PERRL, normal ocular movement - ENT normal mucosa - Neck Neck exam: trachea midline - Respiratory normal expansion, normal respiratory effort - Cardiovascular Cardiovascular exam: Present: RRR, no murmurs/rubs/gallops - Abdomen Abdomen: Present: bowel sounds present, soft, tender (Appropriate postoperative tenderness) - Incision Incision: Present: clean and dry, intact. Absent: draining, purulent - Integumentary no rash - Neurologic CN 2-12 grossly intact - Psychiatric oriented to time, oriented to person, oriented to place - Labs 05/26/17 06:52 05/26/17 06:52 Diabetes panel 05/26/17 Range/Units 06:52 Sodium 134 L (136-145) mEq/L Potassium 4.4 (3.5-5.1) mEq/L Chloride 102 (98-107) mEq/L Carbon Dioxide 26 (23-29) mEq/L BUN 15 (6-20) mg/dL Creatinine 0.65 L (0.70-1.30) mg/dL Glucose 131 H (70-105) mg/dL Calcium 9.6 (8.6-10.3) mg/dL Calcium panel 05/26/17 05/26/17 Range/Units 06:52 06:52 Calcium 9.6 (8.6-10.3) mg/dL Phosphorus 2.9 (2.7-4.5) mg/dL Pituitary panel 05/26/17 Range/Units 06:52 Sodium 134 L (136-145) mEq/L Potassium 4.4 (3.5-5.1) mEq/L Chloride 102 (98-107) mEq/L Carbon Dioxide 26 (23-29) mEq/L BUN 15 (6-20) mg/dL Creatinine 0.65 L (0.70-1.30) mg/dL Glucose 131 H (70-105) mg/dL Calcium 9.6 (8.6-10.3) mg/dL Adrenal panel 05/26/17 Range/Units 06:52 Sodium 134 L (136-145) mEq/L Potassium 4.4 (3.5-5.1) mEq/L Chloride 102 (98-107) mEq/L Carbon Dioxide 26 (23-29) mEq/L BUN 15 (6-20) mg/dL Creatinine 0.65 L (0.70-1.30) mg/dL Glucose 131 H (70-105) mg/dL Calcium 9.6 (8.6-10.3) mg/dL - VTE Documentation of Mechanical Device: Intermittent pneumatic compression device Consult Discharge Plan - Plan Referrals: Albina Marroquin, PHYSICIAN [Primary Care Provider] - <Bala Lopez - Last Filed: 05/27/17 13:03> Date of Encounter: 05/26/17 Objective Vital Signs - Last 8 Hours Temp Pulse Resp BP Pulse Ox 05/27/17 08:57 97 05/27/17 07:18 98.0 F 73 15 121/83 97 Intake and Output 05/26/17 05/27/17 05/27/17 23:59 07:59 15:59 Intake Total 300 / 300 650 / 650 200 / 200 Output Total 300 / 300 1500 / 1500 Balance 0 / 0 -850 / -850 200 / 200 Intake: IV Fluids 300 / 300 650 / 650 200 / 200 Ofirmev 1,000 mg/100 ml 1,000 100 / 100 100 / 100 mg In 100 ml @ 400 mls/hr IVPB Q8H [facility] Rx#:[id number] Cipro Premix 400 MG/200 ML 400 200 / 200 200 / 200 mg In 200 ml @ 200 mls/hr IVPB Q12H [facility] Rx#:[id number] Intralipid 20% 250 ML @ 21 mls/ 250 / 250 hr IVPB DAILY@1700 [facility] Rx#: [id number] Flagyl Premix 500 MG/100 ML 500 100 / 100 100 / 100 100 / 100 mg In 100 ml @ 100 mls/hr IVPB Q8H [facility] Rx#:[id number] Oral 0 / 0 0 / 0 Output: Urine 300 / 300 850 / 850 Stool 0 / 0 Emesis 650 / 650 Wound Drainage 0 / 0 0 / 0 Right Lower Abdomen 0 / 0 0 / 0 Other: Meal Dinner Percent of Meal Consumed 10% Weight 82.86 kg Blood Glucose* 127 156 Patient Weight 05/27/17 23:59 Weight 82.86 kg - Labs 05/27/17 02:55 05/27/17 02:55 Diabetes panel 05/27/17 Range/Units 02:55 Sodium 132 L (136-145) mEq/L Potassium 4.5 (3.5-5.1) mEq/L Chloride 100 (98-107) mEq/L Carbon Dioxide 27 (23-29) mEq/L BUN 18 (6-20) mg/dL Creatinine 0.66 L (0.70-1.30) mg/dL Glucose 102 (70-105) mg/dL Calcium 9.6 (8.6-10.3) mg/dL Calcium panel 05/27/17 Range/Units 02:55 Calcium 9.6 (8.6-10.3) mg/dL Pituitary panel 05/27/17 Range/Units 02:55 Sodium 132 L (136-145) mEq/L Potassium 4.5 (3.5-5.1) mEq/L Chloride 100 (98-107) mEq/L Carbon Dioxide 27 (23-29) mEq/L BUN 18 (6-20) mg/dL Creatinine 0.66 L (0.70-1.30) mg/dL Glucose 102 (70-105) mg/dL Calcium 9.6 (8.6-10.3) mg/dL Adrenal panel 05/27/17 Range/Units 02:55 Sodium 132 L (136-145) mEq/L Potassium 4.5 (3.5-5.1) mEq/L Chloride 100 (98-107) mEq/L Carbon Dioxide 27 (23-29) mEq/L BUN 18 (6-20) mg/dL Creatinine 0.66 L (0.70-1.30) mg/dL Glucose 102 (70-105) mg/dL Calcium 9.6 (8.6-10.3) mg/dL - Attending Attestation I examined this patient and my medical decision-making was reviewed with the Resident Physician. I agree with the documented findings, disposition and treatment plan as described except to the extent set forth below. The patient is seen and evaluated on morning rounds with resident. Last night after Dr. Mcfarland stop his BIT SETTER pain control, or receive for pagin calls in 4 hours complaining of additional pain. I started him back on his BIT SETTER and then had a long talk with him this morning about the relationship between prolonged BIT SETTER treatment of pain and suppression of bowel function. He understands this and felt that he needed additional pain support this morning and throughout the day. I think that this is appropriate given the amount of inflammatory changes in the abdominal wall and intra-abdominal space. We will maintain the BIT SETTER today. He understands that it is a very high priority to remove the BIT SETTER tomorrow and start him on oral pain medicine. Ostomy is in excellent condition. Few bowel sounds. Bala Lopez MD FACS
[2017-05-26] MEDS ORDERED: 0.9 % Sodium Chloride 500 ML ONE (19:47)
[2017-05-26] MEDS: Mirtazapine 15 MG TABLET PO SCH (21:40)
[2017-05-27] MEDS ORDERED: Metoclopramide 10 MG/2 ML VIAL IVP SCH
[2017-05-27] MEDS: Acetaminophen IV 1,000 MG/100 ML INFUS..BTL IVPB SCH ×3 (02:16→18:19)
[2017-05-27 03:23] LABS: Basophils % 0.2 %; Eosinophils # 0.1 K/mcL (0.0-0.6); Eosinophils % 0.8 %; Hematocrit 40.7 % (37.5-50.1); Hemoglobin 12.6 g/dL (12.9-16.9); Immature Granulocytes % 0.6 % (0-4); Lymphocytes # 1.6 K/mcL (0.6-4.6); Lymphocytes % 10.1 %; Mean Corpuscular Hemoglobin 23.6 pg (28.0-33.3); Mean Corpuscular Volume 76.1 fL (83.0-100.0); Monocytes # 0.8 K/mcL (0.0-1.3); Monocytes % 4.7 %; Neutrophils # 13.4 K/mcL (1.6-8.9); Platelet Count 482 K/mcL (140-400); Red Blood Count 5.35 M/mcL (4.19-5.50); Red Cell Distribution Width 15.5 % (11.5-14.5); Segmented Neutrophils % 83.6 %
[2017-05-27] MEDS: Ipratropium/Albuterol Neb 3 ML IH SCH ×6 (03:36→23:13)
[2017-05-27 03:41] LABS: BUN/Creatinine Ratio 27 (6-26); Blood Urea Nitrogen 18 mg/dL (6-20); Calcium 9.6 mg/dL (8.6-10.3); Carbon Dioxide 27 mEq/L (23-29); Chloride 100 mEq/L (98-107); Glucose 102 mg/dL (70-105); Osmolality,Calculated 276 (280-300); Potassium 4.5 mEq/L (3.5-5.1); Sodium 132 mEq/L (136-145); eGFR For African Americans > 60 (> 60); eGFR For Non-African Americans > 60 (> 60)
[2017-05-27] MEDS: *HR* Heparin 5,000 UNIT/ML VIAL SQ SCH ×2 (06:05→17:06)
[2017-05-27] MEDS: Metoclopramide 10 MG/2 ML VIAL IVP SCH ×3 (06:05→17:06)
[2017-05-27] MEDS: MetroNIDAZOLE 500 MG/100 ML 500 MG/100 ML BAG IVPB SCH ×3 (06:09→22:31)
[2017-05-27] MEDS: Pantoprazole 40 MG VIAL IVP SCH (09:17)
[2017-05-27] MEDS: OXYCODONE Oral CONC 10 MG/0.5 ML ORAL.SYG SL PRN ×4 (09:23→21:06)
[2017-05-27] MEDS: Iron Sucrose Complex 200 MG in 0.9 % Sodium Chloride 100 ML IVPB SCH (10:00)
[2017-05-27] MEDS: Ondansetron 4 MG/2 ML VIAL IVP PRN ×2 (12:19→19:50)
[2017-05-27] MEDS: *HR* LORazepam 0.5 MG TABLET PO PRN (14:46)
[2017-05-27] MEDS ORDERED: OXYCODONE Oral CONC 10 MG/0.5 ML ORAL.SYG SL ONE (15:12)
[2017-05-27] MEDS ORDERED: Clinimix E 5%-20% SOLUTION 2,000 ML with MVI, adult with vitamin K 10 ML IVC SCH (17:00)
--- NOTE | 2017-05-27 17:01 | General Surgery Progress Note ---
<Lisandra Ibarra-Angie - Last Filed: 05/27/17 16:59> Date of Encounter: 05/27/17 Time of Encounter: 10:30 - Assessment and Plan (1) Crohn's disease with abscess Current Visit: Yes Status: Chronic POD #6 Open partial sigmoidectomy, colostomy, ileocectomy with primary anastomosis with Dr. Ellison Pathology- A. Sigmoid colon, segmental resection: Diverticulosis and diverticulitis with pericolic abscess. See comment. Lymph nodes with follicular hyperplasia. B. Terminal ileum and cecum, right colectomy: Transmural enteritis consistent with Crohns disease. Lymph nodes with follicular hyperplasia. Pain control- Discontinue the OPERATIONS ACCOUNTANT. Start the patient on sublingal 10mg oxycodone Q4h PRN for pain. Note: Ordered 4mg IV morphine as a one time dose. RN called and spoke to pharmacists who refuse the order. I did call the pharmacists and the pharmacists informing that he cannot deliver the order unless I receive approval from the [employer] department. Clear liquid diet Continue TPN- goal 83.3ml/hour Dietitian for management of TPN Supportive care and pain control- continue dilaudid OPERATIONS ACCOUNTANT. Patient agrees with Dr. Lopez to attempt to discontinued the OPERATIONS ACCOUNTANT tomorrow. IV antibiotics- Cipro and Flagyl Continue Pigtail drain GI prophylaxis Incentive spirometer every 1 hour while awake Out of bed to chair and ambulate hallways 3 times a day Ostomy education per wound care nurse Repeat a.m. labs Qualifiers: Gastrointestinal tract location: unspecified location Qualified Code(s): K50.914 - Crohn's disease, unspecified, with abscess (2) Depression with anxiety Current Visit: Yes Status: Acute Psych consult complete Recommend mirtazapine 15mg PO at bedtime Outpatient follow-up (3) Severe protein-calorie malnutrition Current Visit: Yes Status: Chronic Continue TPN at goal rate 83.3ml/hour while awaiting return of bowel function Top Cutter for management of TPN (4) Tobacco dependence Current Visit: Yes Status: Acute smoking cessation education Subjective Patient reports: still having pain, pain is less (Patient understands the plan of discontinuing the OPERATIONS ACCOUNTANT today. ), flatus, no bowel movement, nausea (Admits nausea with no vomiting overnight. ), afebrile Objective Vital Signs - Last 8 Hours Temp Pulse Resp BP Pulse Ox 05/27/17 15:34 97.5 F L 101 16 119/81 98 Intake and Output 05/27/17 05/27/17 05/27/17 07:59 15:59 23:59 Intake Total 650 / 650 200 / 200 Output Total 1500 / 1500 Balance -850 / -850 200 / 200 Intake: IV Fluids 650 / 650 200 / 200 Ofirmev 1,000 mg/100 ml 1,000 100 / 100 100 / 100 mg In 100 ml @ 400 mls/hr IVPB Q8H [facility] Rx#:[id number] Cipro Premix 400 MG/200 ML 400 200 / 200 mg In 200 ml @ 200 mls/hr IVPB Q12H [facility] Rx#:[id number] Intralipid 20% 250 ML @ 21 mls/ 250 / 250 hr IVPB DAILY@1700 [facility] Rx#: [id number] Flagyl Premix 500 MG/100 ML 500 100 / 100 100 / 100 mg In 100 ml @ 100 mls/hr IVPB Q8H [facility] Rx#:[id number] Oral 0 / 0 Output: Urine 850 / 850 Stool 0 / 0 Emesis 650 / 650 Wound Drainage 0 / 0 Right Lower Abdomen 0 / 0 Other: Weight 82.86 kg Blood Glucose* 156 130 Patient Weight 05/27/17 23:59 Weight 82.86 kg - General physical appearance well developed, no distress - Eyes PERRL, normal ocular movement - ENT normal mucosa - Neck Neck exam: trachea midline - Respiratory normal expansion, normal respiratory effort - Cardiovascular Cardiovascular exam: Present: RRR, no murmurs/rubs/gallops - Abdomen Abdomen: Present: bowel sounds present (Hypoactive bowel sounds.), soft, tender (Appropriate post operative tenderness) Additional Comments: MILAD drain has Serosanguious drainage with bile. - Incision Incision: Present: clean and dry, intact. Absent: draining, purulent - Integumentary no rash - Neurologic CN 2-12 grossly intact - Psychiatric oriented to time, oriented to person, oriented to place - Labs 05/27/17 02:55 05/27/17 02:55 Diabetes panel 05/27/17 Range/Units 02:55 Sodium 132 L (136-145) mEq/L Potassium 4.5 (3.5-5.1) mEq/L Chloride 100 (98-107) mEq/L Carbon Dioxide 27 (23-29) mEq/L BUN 18 (6-20) mg/dL Creatinine 0.66 L (0.70-1.30) mg/dL Glucose 102 (70-105) mg/dL Calcium 9.6 (8.6-10.3) mg/dL Calcium panel 05/27/17 Range/Units 02:55 Calcium 9.6 (8.6-10.3) mg/dL Pituitary panel 05/27/17 Range/Units 02:55 Sodium 132 L (136-145) mEq/L Potassium 4.5 (3.5-5.1) mEq/L Chloride 100 (98-107) mEq/L Carbon Dioxide 27 (23-29) mEq/L BUN 18 (6-20) mg/dL Creatinine 0.66 L (0.70-1.30) mg/dL Glucose 102 (70-105) mg/dL Calcium 9.6 (8.6-10.3) mg/dL Adrenal panel 05/27/17 Range/Units 02:55 Sodium 132 L (136-145) mEq/L Potassium 4.5 (3.5-5.1) mEq/L Chloride 100 (98-107) mEq/L Carbon Dioxide 27 (23-29) mEq/L BUN 18 (6-20) mg/dL Creatinine 0.66 L (0.70-1.30) mg/dL Glucose 102 (70-105) mg/dL Calcium 9.6 (8.6-10.3) mg/dL - VTE Documentation of Mechanical Device: Intermittent pneumatic compression device Consult Discharge Plan - Plan Referrals: Albina Marroquin, PLASTICS NURSE [Primary Care Provider] - <Bala Lopez - Last Filed: 05/28/17 07:43> Date of Encounter: 05/27/17 Objective Vital Signs - Last 8 Hours Temp Pulse Resp BP Pulse Ox 05/28/17 07:09 97.8 F 95 16 151/95 98 05/28/17 03:43 98.1 F 80 15 119/75 98 05/28/17 00:16 98.7 F 80 15 121/74 98 Intake and Output 05/27/17 05/27/17 05/28/17 15:59 23:59 07:59 Intake Total 200 / 200 610 / 610 550 / 550 Output Total 600 / 600 350 / 350 Balance 200 / 200 10 10 200 / 200 Intake: IV Fluids 200 / 200 610 / 610 550 / 550 Ofirmev 1,000 mg/100 ml 1,000 100 / 100 100 / 100 100 / 100 mg In 100 ml @ 400 mls/hr IVPB Q8H [facility] Rx#:[id number] Cipro Premix 400 MG/200 ML 400 200 / 200 200 / 200 mg In 200 ml @ 200 mls/hr IVPB Q12H [facility] Rx#:[id number] Intralipid 20% 250 ML @ 21 mls/ 250 / 250 hr IVPB DAILY@1700 [facility] Rx#: [id number] Venofer 200 MG In 0.9 % Sodium 110 / 110 Chloride 100 ML @ 200 mls/hr IVPB DAILY [facility] Rx#:[id number] Flagyl Premix 500 MG/100 ML 500 100 / 100 200 / 200 mg In 100 ml @ 100 mls/hr IVPB Q8H [facility] Rx#:[id number] Oral 0 / 0 0 / 0 Output: Urine 600 / 600 350 / 350 Stool 0 / 0 Wound Drainage 0 / 0 0 / 0 Right Lower Abdomen 0 / 0 0 / 0 Other: Weight 82.6 kg Blood Glucose* 116 126 Patient Weight 05/28/17 23:59 Weight 82.6 kg - Labs 05/28/17 02:55 05/28/17 02:55 Diabetes panel 05/28/17 Range/Units 02:55 Sodium 131 L (136-145) mEq/L Potassium 4.3 (3.5-5.1) mEq/L Chloride 97 L (98-107) mEq/L Carbon Dioxide 26 (23-29) mEq/L BUN 17 (6-20) mg/dL Creatinine 0.61 L (0.70-1.30) mg/dL Glucose 216 H (70-105) mg/dL Calcium 9.1 (8.6-10.3) mg/dL Calcium panel 05/28/17 Range/Units 02:55 Calcium 9.1 (8.6-10.3) mg/dL Pituitary panel 05/28/17 Range/Units 02:55 Sodium 131 L (136-145) mEq/L Potassium 4.3 (3.5-5.1) mEq/L Chloride 97 L (98-107) mEq/L Carbon Dioxide 26 (23-29) mEq/L BUN 17 (6-20) mg/dL Creatinine 0.61 L (0.70-1.30) mg/dL Glucose 216 H (70-105) mg/dL Calcium 9.1 (8.6-10.3) mg/dL Adrenal panel 05/28/17 Range/Units 02:55 Sodium 131 L (136-145) mEq/L Potassium 4.3 (3.5-5.1) mEq/L Chloride 97 L (98-107) mEq/L Carbon Dioxide 26 (23-29) mEq/L BUN 17 (6-20) mg/dL Creatinine 0.61 L (0.70-1.30) mg/dL Glucose 216 H (70-105) mg/dL Calcium 9.1 (8.6-10.3) mg/dL - Attending Attestation I examined this patient and my medical decision-making was reviewed with the Resident Physician. I agree with the documented findings, disposition and treatment plan as described except to the extent set forth below. The patient is seen and evaluated on morning rounds with the resident. As per our agreement yesterday he will go off the OPERATIONS ACCOUNTANT machine today. I know that this will be a struggle for him. It appears as though he is using injected opioids as an outpatient. He has multiple track villafuerte on both arms. This would explain his symptom complex as soon as he comes of the dilaudid OPERATIONS ACCOUNTANT. We will continue to support him in a reasonable fashion with perioperative narcotics. However, weaning him off narcotics in treating his postoperative pain will be tremendously challenging. Bala Lopez MD FACS
[2017-05-27] MEDS: *HR* HYDROmorphone 20 MG/20 ML PCA IVC PRN (22:27)
[2017-05-27] MEDS: Mirtazapine 15 MG TABLET PO SCH (22:31)
[2017-05-28] MEDS: Acetaminophen IV 1,000 MG/100 ML INFUS..BTL IVPB SCH ×3 (02:33→17:30)
[2017-05-28 03:25] LABS: Basophils % 0.2 %; Eosinophils # 0.1 K/mcL (0.0-0.6); Eosinophils % 0.4 %; Hematocrit 37.3 % (37.5-50.1); Hemoglobin 11.7 g/dL (12.9-16.9); Immature Granulocytes % 0.6 % (0-4); Immature Platelets 4.1 % (1.1-6.1); Lymphocytes # 2.8 K/mcL (0.6-4.6); Lymphocytes % 19.2 %; Mean Corpuscular HGB Conc 31.4 g/dL (31.6-35.5); Mean Corpuscular Hemoglobin 23.8 pg (28.0-33.3); Mean Corpuscular Volume 75.8 fL (83.0-100.0); Mean Platelet Volume 9.9 fL (9.4-12.4); Monocytes # 1.1 K/mcL (0.0-1.3); Monocytes % 7.3 %; Neutrophils # 10.5 K/mcL (1.6-8.9); Platelet Count 452 K/mcL (140-400); Red Blood Count 4.92 M/mcL (4.19-5.50); Red Cell Distribution Width 15.6 % (11.5-14.5); Segmented Neutrophils % 72.3 %
[2017-05-28] MEDS: Ipratropium/Albuterol Neb 3 ML IH SCH ×6 (03:27→23:32)
[2017-05-28 03:35] LABS: BUN/Creatinine Ratio 28 (6-26); Blood Urea Nitrogen 17 mg/dL (6-20); Calcium 9.1 mg/dL (8.6-10.3); Carbon Dioxide 26 mEq/L (23-29); Chloride 97 mEq/L (98-107); Glucose 216 mg/dL (70-105); Osmolality,Calculated 280 (280-300); Potassium 4.3 mEq/L (3.5-5.1); Sodium 131 mEq/L (136-145); eGFR For African Americans > 60 (> 60); eGFR For Non-African Americans > 60 (> 60)
[2017-05-28] MEDS: *HR* Heparin 5,000 UNIT/ML VIAL SQ SCH ×2 (06:05→17:30)
[2017-05-28] MEDS: Metoclopramide 10 MG/2 ML VIAL IVP SCH ×2 (06:05)
[2017-05-28] MEDS: MetroNIDAZOLE 500 MG/100 ML 500 MG/100 ML BAG IVPB SCH ×3 (06:06→21:50)
[2017-05-28] MEDS: Ondansetron 4 MG/2 ML VIAL IVP PRN ×2 (09:28→16:27)
[2017-05-28] MEDS: Pantoprazole 40 MG VIAL IVP SCH (09:28)
[2017-05-28] MEDS: Iron Sucrose Complex 200 MG in 0.9 % Sodium Chloride 100 ML IVPB SCH (09:29)
[2017-05-28] MEDS: OXYCODONE Oral CONC 10 MG/0.5 ML ORAL.SYG SL PRN (09:30)
--- NOTE | 2017-05-28 09:42 | General Surgery Progress Note ---
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 He reports a small amount of output in his appliance. He states his discomfort is controlled. Denies nausea or vomiting. ABS and nondistended abdomen. Plan: -limited clears, continue PICC and TPN -continue supportive care and discomfort management: continue current discomfort management Will adjust pain medications to step down therapy -replace electrolytes as indicated - Continue G.I. and DVT prophylaxis -out of bed to chair at least 3 times daily -EPCDs while in bed -heparin subacute 5000 units b.i.d. -serial abdominal exams -repeat a.m. labs Qualifiers: Gastrointestinal tract location: unspecified location Qualified Code(s): K50.914 - Crohn's disease, unspecified, with abscess (2) IV drug abuse Current Visit: Yes Status: Acute Patient reports that he was crushing narcotics that were previously prescribed to him and injecting them. He denies using any other drug substances despite the track villafuerte on his arm. He was agreeable to hepatitis and HIV screening given IV drug use. These were nonreactive today. I did review this with the patient. Discussed the difficult nature of pain control with patient and that d/c's TEMPLATE LAYOUT WORKER is appropriate at this time. Pt verbalized understanding and adherence. Plan: -Start Oxycodone ER 10 mg BID tonight at 1800. Stop TEMPLATE LAYOUT WORKER aprox 2 hours after receiving medication. -TEMPLATE LAYOUT WORKER demand only, stopped basal dose now. -SL Oxycodone for severe breakthrough pain Continue IV Ofirmev for now (3) Postoperative ileus Current Visit: Yes Status: Acute Colace BID. Dulcolax per stoma at dressing change. CLD limited amounts at this time. Can advance diet when patient is having output and flatus in his ostomy. s/p Relistor SQ today (4) Severe protein-calorie malnutrition Current Visit: Yes Status: Chronic Continue TPN. Repeat a.m. labs limited clears (5) Depression with anxiety Current Visit: Yes Status: Acute Appreciate recommendations per site consult. Mirtazapine started last night. Patient states this was effective for assisting in sleep. (6) Tobacco dependence Current Visit: Yes Status: Acute See assessment and plan for painful respirations above. Patient noted to have vapor cigarettes at bedside. He is reminded that this is against hospital policy. Patient verbalized understanding. (7) Anemia Current Visit: Yes Status: Acute Iron studies pending. See assessment and plan above Qualifiers: Anemia type: unspecified type Qualified Code(s): D64.9 - Anemia, unspecified Subjective Patient reports: no new complaints, still having pain, voiding w/o difficulty, flatus, bowel movement, afebrile Narrative: But reports he has had some output in his colostomy. He reports passing"air from a bottom," denies fever, chills, nausea, vomiting. He reports his last IV drug use was the day before he came into the hospital. He states he was crushing the narcotics that have been prescribed to him and injecting them. Per the bedside RN report, he did vomiting yesterday and there was notable particulate consistent with belizean fries in the vomitus. The patient denied eating the belizean fries although there was a carton that was empty noted at bedside. Rodrigo, bedside RN reports that stopping the TEMPLATE LAYOUT WORKER was attempted. He said the patient would wax and wane between episodes of being sleepy and difficult to arouse as well has waking from sleep and "thrashing around in the bed stating his abdomen hurt." The TEMPLATE LAYOUT WORKER was restarted. Objective Vital Signs - Last 8 Hours Temp Pulse Resp BP Pulse Ox 05/28/17 07:48 98 05/28/17 07:09 97.8 F 95 16 151/95 98 05/28/17 03:43 98.1 F 80 15 119/75 98 Intake and Output 05/27/17 05/28/17 05/28/17 23:59 07:59 15:59 Intake Total 610 / 610 550 / 550 Output Total 600 / 600 350 / 350 Balance 200 / 200 Intake: IV Fluids 610 / 610 550 / 550 Ofirmev 1,000 mg/100 ml 1,000 100 / 100 100 / 100 mg In 100 ml @ 400 mls/hr IVPB Q8H [facility] Rx#:[id number] Cipro Premix 400 MG/200 ML 400 200 / 200 200 / 200 mg In 200 ml @ 200 mls/hr IVPB Q12H [facility] Rx#:[id number] Intralipid 20% 250 ML @ 21 mls/ 250 / 250 hr IVPB DAILY@1700 [facility] Rx#: [id number] Venofer 200 MG In 0.9 % Sodium 110 / 110 Chloride 100 ML @ 200 mls/hr IVPB DAILY [facility] Rx#:[id number] Flagyl Premix 500 MG/100 ML 500 200 / 200 mg In 100 ml @ 100 mls/hr IVPB Q8H [facility] Rx#:[id number] Oral 0 / 0 0 / 0 Output: Urine 600 / 600 350 / 350 Stool 0 / 0 Wound Drainage 0 / 0 0 / 0 Right Lower Abdomen 0 / 0 0 / 0 Other: Weight 82.6 kg Blood Glucose* 116 126 Patient Weight 05/28/17 23:59 Weight 82.6 kg VITAL SIGNS: Reviewed. See [facility] GENERAL: In no apparent distress. HEENT: Normocephalic, atraumatic, pupils are equal and reactive, extraocular motions intact, oropharynx is pink and moist, there is no neck adenopathy or JVD noted. CHEST/RESPIRATORY: The thorax is free from signs of trauma. Lung sounds: clear to auscultation, normal respiratory effort CARDIAC: Regular rate and rhythm. Normal S1 and S2, without murmurs, gallops, or rubs. VASCULAR: No Edema. 2+ peripheral pulses. ABDOMEN: soft, expected postoperative tenderness, active bowel sounds, small amount of output noted in the colostomy INCISION: Surgical incision is clean, dry, and intact. There are no signs of cellulitis or infection noted. WOUNDS/DRAINS: stoma is pink and moist. Small amount of Brown output noted. Pigtail/MILAD drain with small amount of cloudy serous fluid. Site within normal limits. MUSCULOSKELETAL: Good range of motion of all major joints. Extremities without clubbing, cyanosis or edema. NEUROLOGIC EXAM: Alert and oriented x 3. Speech normal. Follows commands. PSYCHIATRIC: Mood normal. Confirms history of IVDU (see HPI and a/p for further details) SKIN: No rash or echymossis noted. Track villafuerte present. Pale. - Labs 05/28/17 02:55 05/28/17 02:55 Diabetes panel 05/28/17 Range/Units 02:55 Sodium 131 L (136-145) mEq/L Potassium 4.3 (3.5-5.1) mEq/L Chloride 97 L (98-107) mEq/L Carbon Dioxide 26 (23-29) mEq/L BUN 17 (6-20) mg/dL Creatinine 0.61 L (0.70-1.30) mg/dL Glucose 216 H (70-105) mg/dL Calcium 9.1 (8.6-10.3) mg/dL Calcium panel 05/28/17 Range/Units 02:55 Calcium 9.1 (8.6-10.3) mg/dL Pituitary panel 05/28/17 Range/Units 02:55 Sodium 131 L (136-145) mEq/L Potassium 4.3 (3.5-5.1) mEq/L Chloride 97 L (98-107) mEq/L Carbon Dioxide 26 (23-29) mEq/L BUN 17 (6-20) mg/dL Creatinine 0.61 L (0.70-1.30) mg/dL Glucose 216 H (70-105) mg/dL Calcium 9.1 (8.6-10.3) mg/dL Adrenal panel 05/28/17 Range/Units 02:55 Sodium 131 L (136-145) mEq/L Potassium 4.3 (3.5-5.1) mEq/L Chloride 97 L (98-107) mEq/L Carbon Dioxide 26 (23-29) mEq/L BUN 17 (6-20) mg/dL Creatinine 0.61 L (0.70-1.30) mg/dL Glucose 216 H (70-105) mg/dL Calcium 9.1 (8.6-10.3) mg/dL - VTE Documentation of Mechanical Device: Intermittent pneumatic compression device Consult Discharge Plan - Plan Referrals: Albina Marroquin, PREPARER [Primary Care Provider] - <Lea Ellison - Last Filed: 05/29/17 11:59> Date of Encounter: 05/28/17 - Assessment and Plan (1) Crohn's disease with abscess Current Visit: Yes Status: Chronic continue abx discussed with patient KUB shows dilated loops of small bowel, likely may need ngt if continued nausea ambulate shower prn pain control, discussed with patient that some of his gut nonfunction is likely due to high narcotics use Qualifiers: Gastrointestinal tract location: unspecified location Qualified Code(s): K50.914 - Crohn's disease, unspecified, with abscess (2) Severe protein-calorie malnutrition Current Visit: Yes Status: Chronic (3) Tobacco dependence Current Visit: Yes Status: Acute (4) Depression with anxiety Current Visit: Yes Status: Acute Subjective Narrative: having a little nausea, tolerating some liquids + stool in ostomy complaining of abdominal pain Objective Vital Signs - Last 8 Hours Temp Pulse Resp BP Pulse Ox 05/29/17 11:29 97.8 F 86 16 145/92 100 05/29/17 07:32 98.3 F 84 16 140/95 100 05/29/17 04:31 98.1 F 85 17 134/82 94 Intake and Output 05/28/17 05/29/17 05/29/17 23:59 07:59 15:59 Intake Total 890 / 890 970 / 970 Output Total 660 / 660 975 / 975 150 / 150 Balance 230 / 230 -5 / -5 -150 / -150 Intake: IV Fluids 410 / 410 850 / 850 Ofirmev 1,000 mg/100 ml 1,000 200 / 200 mg In 100 ml @ 400 mls/hr IVPB Q8H [facility] Rx#:[id number] Cipro Premix 400 MG/200 ML 400 200 / 200 200 / 200 mg In 200 ml @ 200 mls/hr IVPB Q12H [facility] Rx#:[id number] Intralipid 20% 250 ML @ 21 mls/ 250 / 250 hr IVPB DAILY@1700 [facility] Rx#: [id number] Venofer 200 MG In 0.9 % Sodium 110 / 110 Chloride 100 ML @ 200 mls/hr IVPB DAILY [facility] Rx#:[id number] Flagyl Premix 500 MG/100 ML 500 100 / 100 200 / 200 mg In 100 ml @ 100 mls/hr IVPB Q8H [facility] Rx#:[id number] Oral 480 / 480 120 / 120 Output: Urine 650 / 650 975 / 975 0 / 0 Stool 0 / 0 0 / 0 0 / 0 Emesis 150 / 150 Wound Drainage 10 / 10 0 / 0 0 / 0 Right Lower Abdomen 0 0 0 / 0 Other: Stool Size Large Stool Consistency formed Stool Color Brown Bright Red Blood # Bowel Movements 1 Weight 82.6 kg Blood Glucose* 125 128 Patient Weight 05/29/17 23:59 Weight 82.6 kg - General physical appearance well developed, well nourished, no distress - Eyes PERRL, normal ocular movement - ENT normal mucosa, normocephalic - Neck Neck exam: trachea midline - Respiratory normal expansion, normal respiratory effort, clear to auscultation - Cardiovascular Cardiovascular exam: Present: RRR - Abdomen Abdomen: Present: bowel sounds present, soft, tender (appropriate post op tenderness) Additional Comments: colostomy - pink, ostomy appliance just changed - Incision Incision: Present: clean and dry, intact - Integumentary no rash, no growths - Neurologic CN 2-12 grossly intact - Musculoskeletal normal posture - Psychiatric oriented to time, oriented to person, memory intact - Labs 05/29/17 04:11 05/29/17 04:11 Diabetes panel 05/29/17 Range/Units 04:11 Sodium 133 L (136-145) mEq/L Potassium 4.3 (3.5-5.1) mEq/L Chloride 102 (98-107) mEq/L Carbon Dioxide 25 (23-29) mEq/L BUN 16 (6-20) mg/dL Creatinine 0.60 L (0.70-1.30) mg/dL Glucose 104 (70-105) mg/dL Calcium 9.3 (8.6-10.3) mg/dL Calcium panel 05/29/17 Range/Units 04:11 Calcium 9.3 (8.6-10.3) mg/dL Phosphorus 3.7 (2.7-4.5) mg/dL Pituitary panel 05/29/17 Range/Units 04:11 Sodium 133 L (136-145) mEq/L Potassium 4.3 (3.5-5.1) mEq/L Chloride 102 (98-107) mEq/L Carbon Dioxide 25 (23-29) mEq/L BUN 16 (6-20) mg/dL Creatinine 0.60 L (0.70-1.30) mg/dL Glucose 104 (70-105) mg/dL Calcium 9.3 (8.6-10.3) mg/dL Adrenal panel 05/29/17 Range/Units 04:11 Sodium 133 L (136-145) mEq/L Potassium 4.3 (3.5-5.1) mEq/L Chloride 102 (98-107) mEq/L Carbon Dioxide 25 (23-29) mEq/L BUN 16 (6-20) mg/dL Creatinine 0.60 L (0.70-1.30) mg/dL Glucose 104 (70-105) mg/dL Calcium 9.3 (8.6-10.3) mg/dL - Attending Attestation I have personally performed a face to face evaluation on this patient. I have reviewed and agree with the care plan. History and Exam by me shows:
[2017-05-28] MEDS ORDERED: Methylnaltrexone 12 MG/0.6 ML SYRINGE SQ ONE ×2 (09:53→10:08)
[2017-05-28 11:26] LABS: HIV-1&2 Antibody & p24 Ag Nonreactive (Nonreactive); Hepatitis A Antibody IgM Nonreactive (Nonreactive); Hepatitis B Core IgM Nonreactive (Nonreactive); Hepatitis B Surface Antigen Nonreactive (Nonreactive); Hepatitis C Virus Antibody Nonreactive (Nonreactive)
[2017-05-28] MEDS: Bisacodyl 10 MG RECTAL SUPPOSITORY RC SCH (14:10)
[2017-05-28] MEDS: *HR* HYDROmorphone 20 MG/20 ML PCA IVC PRN (14:38)
[2017-05-28] MEDS ORDERED: *HR* HYDROmorphone 20 MG/20 ML PCA IVC PRN (14:55)
[2017-05-28] MEDS ORDERED: Clinimix E 5%-20% SOLUTION 2,000 ML with MVI, adult with vitamin K 10 ML IVC SCH (17:00)
[2017-05-28] MEDS: *HR* OxyCODONE ER (12 HR) 10 MG TABLET PO SCH (17:31)
[2017-05-28] MEDS: Mirtazapine 15 MG TABLET PO SCH (21:50)
[2017-05-29] MEDS: Ipratropium/Albuterol Neb 3 ML IH SCH ×6 (03:28→23:39)
[2017-05-29] MEDS: Acetaminophen IV 1,000 MG/100 ML INFUS..BTL IVPB SCH ×3 (04:06→17:08)
[2017-05-29] MEDS: Ondansetron 4 MG/2 ML VIAL IVP PRN ×4 (04:07→22:42)
[2017-05-29] MEDS: OXYCODONE Oral CONC 10 MG/0.5 ML ORAL.SYG SL PRN ×5 (04:07→21:45)
[2017-05-29 04:43] LABS: Basophils # 0.1 K/mcL (0.0-0.2); Basophils % 0.4 %; Eosinophils # 0.2 K/mcL (0.0-0.6); Eosinophils % 1.3 %; Hematocrit 39.6 % (37.5-50.1); Hemoglobin 12.4 g/dL (12.9-16.9); Immature Granulocytes % 0.6 % (0-4); Lymphocytes # 2.4 K/mcL (0.6-4.6); Mean Corpuscular HGB Conc 31.3 g/dL (31.6-35.5); Mean Corpuscular Volume 76.7 fL (83.0-100.0); Mean Platelet Volume 10.2 fL (9.4-12.4); Monocytes # 1.1 K/mcL (0.0-1.3); Monocytes % 9.4 %; Neutrophils # 7.6 K/mcL (1.6-8.9); Platelet Count 411 K/mcL (140-400); Red Blood Count 5.16 M/mcL (4.19-5.50); Red Cell Distribution Width 16.5 % (11.5-14.5); Segmented Neutrophils % 67.3 %
[2017-05-29 04:59] LABS: BUN/Creatinine Ratio 27 (6-26); Blood Urea Nitrogen 16 mg/dL (6-20); Calcium 9.3 mg/dL (8.6-10.3); Carbon Dioxide 25 mEq/L (23-29); Chloride 102 mEq/L (98-107); Glucose 104 mg/dL (70-105); Magnesium 1.8 mg/dL (1.6-2.6); Osmolality,Calculated 277 (280-300); Phosphorous 3.7 mg/dL (2.7-4.5); Potassium 4.3 mEq/L (3.5-5.1); Sodium 133 mEq/L (136-145); eGFR For African Americans > 60 (> 60); eGFR For Non-African Americans > 60 (> 60)
[2017-05-29] MEDS: MetroNIDAZOLE 500 MG/100 ML 500 MG/100 ML BAG IVPB SCH ×3 (06:15→22:43)
[2017-05-29] MEDS: *HR* Heparin 5,000 UNIT/ML VIAL SQ SCH ×2 (06:15→17:09)
[2017-05-29] MEDS: *HR* OxyCODONE ER (12 HR) 10 MG TABLET PO SCH (06:16)
[2017-05-29] MEDS: Pantoprazole 40 MG VIAL IVP SCH (09:27)
[2017-05-29] MEDS: Bisacodyl 10 MG RECTAL SUPPOSITORY RC SCH (09:30)
[2017-05-29] MEDS: Iron Sucrose Complex 200 MG in 0.9 % Sodium Chloride 100 ML IVPB SCH (10:12)
[2017-05-29] MEDS: *HR* LORazepam 0.5 MG TABLET PO PRN ×2 (10:15→21:45)
[2017-05-29] MEDS ORDERED: Lidocaine Jelly 11 ml Syringe MM ONE (10:56)
--- NOTE | 2017-05-29 11:05 | General Surgery Progress Note ---
<Skyla Cueva Martha - Last Filed: 05/29/17 12:15> Date of Encounter: 05/29/17 Time of Encounter: 10:45 - Assessment and Plan (1) Crohn's disease with abscess Current Visit: Yes Status: Chronic POD #7 Open partial sigmoidectomy, colostomy, ileocectomy with primary anastomosis with Dr. Ellison Pathology- A. Sigmoid colon, segmental resection: Diverticulosis and diverticulitis with pericolic abscess. See comment. Lymph nodes with follicular hyperplasia. B. Terminal ileum and cecum, right colectomy: Transmural enteritis consistent with Crohns disease. Lymph nodes with follicular hyperplasia. NPO except ice chips, chewing gum and hard tack candy NG tube to be placed to LIWS Continue TPN- goal 83.3ml/hour Dietitian for management of TPN Supportive care and pain control- continue dilaudid INSECTICIDE MIXER IV antibiotics- Cipro and Flagyl Continue Pigtail drain GI prophylaxis Incentive spirometer every 1 hour while awake Out of bed to chair and ambulate hallways 3 times a day Ostomy education per wound care nurse Repeat a.m. labs Qualifiers: Gastrointestinal tract location: unspecified location Qualified Code(s): K50.914 - Crohn's disease, unspecified, with abscess (2) Depression with anxiety Current Visit: Yes Status: Acute Psych consult complete Recommend mirtazapine 15mg PO at bedtime Outpatient follow-up with psych (3) Tobacco dependence Current Visit: Yes Status: Acute smoking cessation education (4) Severe protein-calorie malnutrition Current Visit: Yes Status: Chronic Continue TPN at goal rate 83.3ml/hour while awaiting return of bowel function Corn Sheller for management of TPN (5) Anemia Current Visit: Yes Status: Acute Stable Hgb 11.7>12.4 Venofer infusions X 5 days complete today Qualifiers: Anemia type: unspecified type Qualified Code(s): D64.9 - Anemia, unspecified (6) Postoperative ileus Current Visit: Yes Status: Acute NPO except ice chips, chewing gum and hard tack candy NG tube to LIWS Continue TPN at goal Await return of bowel function (7) IV drug abuse Current Visit: Yes Status: Acute Hepatitis panel non-reactive HIV non-reactive (8) DVT prophylaxis Current Visit: Yes Status: Acute Heparin 5000 units subcutaneous twice daily for DVT prophylaxis Ambulate hallways 3 times a day with assistance Subjective Patient reports: still having pain, voiding w/o difficulty, no flatus, no bowel movement, nausea, vomiting, afebrile Objective Vital Signs - Last 8 Hours Temp Pulse Resp BP Pulse Ox 05/29/17 07:32 98.3 F 84 16 140/95 100 05/29/17 04:31 98.1 F 85 17 134/82 94 Intake and Output 05/28/17 05/29/17 05/29/17 23:59 07:59 15:59 Intake Total 890 / 890 970 / 970 Output Total 660 / 660 975 / 975 150 / 150 Balance 230 / 230 -5 / -5 -150 / -150 Intake: IV Fluids 410 / 410 850 / 850 Ofirmev 1,000 mg/100 ml 1,000 200 / 200 mg In 100 ml @ 400 mls/hr IVPB Q8H [facility] Rx#:[id number] Cipro Premix 400 MG/200 ML 400 200 / 200 200 / 200 mg In 200 ml @ 200 mls/hr IVPB Q12H [facility] Rx#:[id number] Intralipid 20% 250 ML @ 21 mls/ 250 / 250 hr IVPB DAILY@1700 [facility] Rx#: [id number] Venofer 200 MG In 0.9 % Sodium 110 / 110 Chloride 100 ML @ 200 mls/hr IVPB DAILY [facility] Rx#:[id number] Flagyl Premix 500 MG/100 ML 500 100 / 100 200 / 200 mg In 100 ml @ 100 mls/hr IVPB Q8H [facility] Rx#:[id number] Oral 480 / 480 120 / 120 Output: Urine 650 / 650 975 / 975 Stool 0 / 0 0 / 0 Emesis 150 / 150 Wound Drainage 10 / 10 0 / 0 Right Lower Abdomen 10 / 10 0 / 0 Other: Weight 82.6 kg Blood Glucose* 125 128 Patient Weight 05/29/17 23:59 Weight 82.6 kg - General physical appearance well developed, moderate distress, moderate pain - Eyes normal ocular movement - ENT normal mucosa, atraumatic, normocephalic - Neck Neck exam: trachea midline - Respiratory normal respiratory effort, clear to auscultation - Cardiovascular Cardiovascular exam: Present: RRR - Abdomen Abdomen: Present: bowel sounds present, soft, distended, tender (expected post- operative tenderness), wound (ostomy is pink and moist without flatus or stool) - Incision Incision: Present: clean and dry, intact - Neurologic CN 2-12 grossly intact - Psychiatric oriented to time, oriented to person, oriented to place, speech is normal, memory intact - Labs 05/29/17 04:11 05/29/17 04:11 Diabetes panel 05/29/17 Range/Units 04:11 Sodium 133 L (136-145) mEq/L Potassium 4.3 (3.5-5.1) mEq/L Chloride 102 (98-107) mEq/L Carbon Dioxide 25 (23-29) mEq/L BUN 16 (6-20) mg/dL Creatinine 0.60 L (0.70-1.30) mg/dL Glucose 104 (70-105) mg/dL Calcium 9.3 (8.6-10.3) mg/dL Calcium panel 05/29/17 Range/Units 04:11 Calcium 9.3 (8.6-10.3) mg/dL Phosphorus 3.7 (2.7-4.5) mg/dL Pituitary panel 05/29/17 Range/Units 04:11 Sodium 133 L (136-145) mEq/L Potassium 4.3 (3.5-5.1) mEq/L Chloride 102 (98-107) mEq/L Carbon Dioxide 25 (23-29) mEq/L BUN 16 (6-20) mg/dL Creatinine 0.60 L (0.70-1.30) mg/dL Glucose 104 (70-105) mg/dL Calcium 9.3 (8.6-10.3) mg/dL Adrenal panel 05/29/17 Range/Units 04:11 Sodium 133 L (136-145) mEq/L Potassium 4.3 (3.5-5.1) mEq/L Chloride 102 (98-107) mEq/L Carbon Dioxide 25 (23-29) mEq/L BUN 16 (6-20) mg/dL Creatinine 0.60 L (0.70-1.30) mg/dL Glucose 104 (70-105) mg/dL Calcium 9.3 (8.6-10.3) mg/dL - VTE Documentation of Mechanical Device: Intermittent pneumatic compression device Consult Discharge Plan - Plan Referrals: Albina Marroquin, [employer] [Primary Care Provider] - - Attending Attestation For this encounter, I have reviewed the TIP MENDER or PA documentation, treatment plan, and medical decision making; and I have had face to face time with this patient. <ScotAydinLea L - Last Filed: 05/30/17 17:42> Date of Encounter: 05/29/17 - Assessment and Plan (1) Crohn's disease with abscess Current Visit: Yes Status: Chronic Qualifiers: Gastrointestinal tract location: unspecified location Qualified Code(s): K50.914 - Crohn's disease, unspecified, with abscess (2) Severe protein-calorie malnutrition Current Visit: Yes Status: Chronic (3) Tobacco dependence Current Visit: Yes Status: Acute (4) Depression with anxiety Current Visit: Yes Status: Acute Subjective Patient reports: still having pain, voiding w/o difficulty, no flatus Objective Vital Signs - Last 8 Hours Temp Pulse Resp BP Pulse Ox 05/30/17 15:55 98.4 F 84 16 122/78 100 05/30/17 12:34 98 F 77 16 123/81 99 Intake and Output 05/30/17 05/30/17 05/30/17 07:59 15:59 23:59 Intake Total 650 / 650 0 / 0 Output Total 0 / 0 400 / 400 Balance 650 / 650 -400 / -400 Intake: IV Fluids 650 / 650 Ofirmev 1,000 mg/100 ml 1,000 100 / 100 mg In 100 ml @ 400 mls/hr IVPB Q8H [facility] Rx#:[id number] Cipro Premix 400 MG/200 ML 400 200 / 200 mg In 200 ml @ 200 mls/hr IVPB Q12H [facility] Rx#:[id number] Intralipid 20% 250 ML @ 21 mls/ 250 / 250 hr IVPB DAILY@1700 [facility] Rx#: [id number] Flagyl Premix 500 MG/100 ML 500 100 / 100 mg In 100 ml @ 100 mls/hr IVPB Q8H [facility] Rx#:[id number] Oral 0 / 0 0 / 0 Output: Urine 0 / 0 400 / 400 Other: # Voids 0 Weight 82.621 kg Blood Glucose* 108 117 Patient Weight 05/30/17 23:59 Weight 82.621 kg - General physical appearance well developed, moderate distress, moderate pain - Eyes normal ocular movement - ENT normal mucosa, normocephalic - Respiratory normal respiratory effort, clear to auscultation - Cardiovascular Cardiovascular exam: Present: RRR - Abdomen Abdomen: Present: bowel sounds present, soft, distended - Incision Incision: Present: clean and dry, intact - Integumentary no growths - Neurologic CN 2-12 grossly intact - Musculoskeletal normal posture - Psychiatric oriented to time, oriented to person, speech is normal, memory intact - Labs 05/30/17 04:00 05/30/17 04:00 Diabetes panel 05/30/17 Range/Units 04:00 Sodium 133 L (136-145) mEq/L Potassium 4.3 (3.5-5.1) mEq/L Chloride 102 (98-107) mEq/L Carbon Dioxide 24 (23-29) mEq/L BUN 17 (6-20) mg/dL Creatinine 0.62 L (0.70-1.30) mg/dL Glucose 111 H (70-105) mg/dL Calcium 9.3 (8.6-10.3) mg/dL Calcium panel 05/30/17 Range/Units 04:00 Calcium 9.3 (8.6-10.3) mg/dL Phosphorus 3.5 (2.7-4.5) mg/dL Pituitary panel 05/30/17 Range/Units 04:00 Sodium 133 L (136-145) mEq/L Potassium 4.3 (3.5-5.1) mEq/L Chloride 102 (98-107) mEq/L Carbon Dioxide 24 (23-29) mEq/L BUN 17 (6-20) mg/dL Creatinine 0.62 L (0.70-1.30) mg/dL Glucose 111 H (70-105) mg/dL Calcium 9.3 (8.6-10.3) mg/dL Adrenal panel 05/30/17 Range/Units 04:00 Sodium 133 L (136-145) mEq/L Potassium 4.3 (3.5-5.1) mEq/L Chloride 102 (98-107) mEq/L Carbon Dioxide 24 (23-29) mEq/L BUN 17 (6-20) mg/dL Creatinine 0.62 L (0.70-1.30) mg/dL Glucose 111 H (70-105) mg/dL Calcium 9.3 (8.6-10.3) mg/dL
[2017-05-29] MEDS ORDERED: Chloraseptic Spray 177 ML BOTTLE MM PRN (12:08)
[2017-05-29] MEDS ORDERED: *HR* FentaNYL PATCH 25 MCG PATCH TD SCH (12:15)
[2017-05-29] MEDS: *HR* Promethazine 25 MG/ML VIAL IVP PRN ×2 (13:21→20:03)
--- NOTE | 2017-05-29 13:34 | Event Note ---
Date of Encounter: 05/29/17 Time of Encounter: 13:28 Patient pulled his NG tube out and told the charge nurse that he will be leaving the hospital. I receieved a phone call from the nurse to have a discussion with the patient about his wishes to leave the hospital. I was able to speak with the patient and I reinforced the plan of care and rationale for the treatments. I discussed that the NG tube and bowel rest with help to decompress his dilated small bowel and will decrease his length of hospitalization. He states that he understands but there is no way that he can deal with having the NG tube put back in. He states that he will ambulate hallways and chew gum to help stimulate bowel function. He states that he will stay in the hospital for now while awaiting return of bowel function.
[2017-05-29] MEDS ORDERED: Clinimix E 5%-20% SOLUTION 2,000 ML with MVI, adult with vitamin K 10 ML IVC SCH (17:00)
[2017-05-29] MEDS: Mirtazapine 15 MG TABLET PO SCH (20:05)
[2017-05-30] MEDS: OXYCODONE Oral CONC 10 MG/0.5 ML ORAL.SYG SL PRN ×6 (01:30→20:05)
[2017-05-30] MEDS: *HR* Promethazine 25 MG/ML VIAL IVP PRN ×3 (01:30→20:06)
[2017-05-30] MEDS: Acetaminophen IV 1,000 MG/100 ML INFUS..BTL IVPB SCH ×3 (02:51→18:27)
[2017-05-30 04:40] LABS: Basophils % 0.3 %; Eosinophils # 0.1 K/mcL (0.0-0.6); Eosinophils % 0.5 %; Hemoglobin 11.9 g/dL (12.9-16.9); Immature Granulocytes % 0.6 % (0-4); Lymphocytes # 2.8 K/mcL (0.6-4.6); Lymphocytes % 23.5 %; Mean Corpuscular HGB Conc 30.5 g/dL (31.6-35.5); Mean Corpuscular Hemoglobin 23.6 pg (28.0-33.3); Mean Corpuscular Volume 77.2 fL (83.0-100.0); Mean Platelet Volume 10.6 fL (9.4-12.4); Monocytes % 8.9 %; Neutrophils # 7.8 K/mcL (1.6-8.9); Platelet Count 381 K/mcL (140-400); Red Blood Count 5.05 M/mcL (4.19-5.50); Red Cell Distribution Width 17.2 % (11.5-14.5); Segmented Neutrophils % 66.2 %
[2017-05-30] MEDS: Ipratropium/Albuterol Neb 3 ML IH SCH ×6 (04:44→22:51)
[2017-05-30 04:56] LABS: BUN/Creatinine Ratio 27 (6-26); Blood Urea Nitrogen 17 mg/dL (6-20); Calcium 9.3 mg/dL (8.6-10.3); Carbon Dioxide 24 mEq/L (23-29); Chloride 102 mEq/L (98-107); Glucose 111 mg/dL (70-105); Osmolality,Calculated 278 (280-300); Phosphorous 3.5 mg/dL (2.7-4.5); Potassium 4.3 mEq/L (3.5-5.1); Sodium 133 mEq/L (136-145); eGFR For African Americans > 60 (> 60); eGFR For Non-African Americans > 60 (> 60)
[2017-05-30] MEDS: *HR* Heparin 5,000 UNIT/ML VIAL SQ SCH ×2 (05:18→18:49)
[2017-05-30] MEDS: Ondansetron 4 MG/2 ML VIAL IVP PRN ×2 (05:19→14:44)
[2017-05-30] MEDS: MetroNIDAZOLE 500 MG/100 ML 500 MG/100 ML BAG IVPB SCH ×3 (06:22→23:18)
[2017-05-30] MEDS: Pantoprazole 40 MG VIAL IVP SCH (09:21)
[2017-05-30] MEDS: *HR* LORazepam 0.5 MG TABLET PO PRN ×2 (11:57→18:30)
--- NOTE | 2017-05-30 13:45 | General Surgery Progress Note ---
Date of Encounter: 05/30/17 Time of Encounter: 13:40 - Assessment and Plan (1) Crohn's disease with abscess Current Visit: Yes Status: Chronic POD #9 Open partial sigmoidectomy, colostomy, ileocectomy with primary anastomosis with Dr. Ellison Pathology- A. Sigmoid colon, segmental resection: Diverticulosis and diverticulitis with pericolic abscess. See comment. Lymph nodes with follicular hyperplasia. B. Terminal ileum and cecum, right colectomy: Transmural enteritis consistent with Crohns disease. Lymph nodes with follicular hyperplasia. NPO except ice chips, chewing gum and hard tack candy Patient pulled NG tube and refuses replacement Check 2V abdominal x-ray today Continue TPN- goal 83.3ml/hour Dietitian for management of TPN Supportive care and pain control IV antibiotics- Cipro and Flagyl Continue Pigtail drain GI prophylaxis Incentive spirometer every 1 hour while awake Out of bed to chair and ambulate hallways 3 times a day Ostomy education per wound care nurse Repeat a.m. labs Qualifiers: Gastrointestinal tract location: unspecified location Qualified Code(s): K50.914 - Crohn's disease, unspecified, with abscess (2) Depression with anxiety Current Visit: Yes Status: Acute Psych consult complete Recommend mirtazapine 15mg PO at bedtime Outpatient follow-up with psych (3) Tobacco dependence Current Visit: Yes Status: Acute smoking cessation education (4) Severe protein-calorie malnutrition Current Visit: Yes Status: Chronic Continue TPN at goal rate 83.3ml/hour while awaiting return of bowel function Visual Merchandising Coordinator for management of TPN (5) Anemia Current Visit: Yes Status: Acute Stable Hgb 11.7>12.4>11.9 Venofer infusions X 5 days complete 05/29/17 Qualifiers: Anemia type: unspecified type Qualified Code(s): D64.9 - Anemia, unspecified (6) Postoperative ileus Current Visit: Yes Status: Acute NPO except ice chips, chewing gum and hard tack candy Patient removed NG tube and refuses replacement Continue TPN at goal Await return of bowel function (7) IV drug abuse Current Visit: Yes Status: Acute Hepatitis panel non-reactive HIV non-reactive (8) DVT prophylaxis Current Visit: Yes Status: Acute Heparin 5000 units subcutaneous twice daily for DVT prophylaxis Ambulate hallways 3 times a day with assistance Subjective Patient reports: no new complaints, feels better, still having pain, pain is less, tolerating liquids well (Patient states he is tolerating liquids although his order is for NPO, he states that he has been drinking fluids in his room), voiding w/o difficulty, flatus, bowel movement (via ostomy), nausea (Patient reports that he feels much better than yesterday, nausea improving), vomiting ( small amount this morning (patient states this was related to reflux)), afebrile Objective Vital Signs - Last 8 Hours Temp Pulse Resp BP Pulse Ox 05/30/17 12:34 98 F 77 16 123/81 99 05/30/17 08:16 97.6 F 81 15 144/92 100 Intake and Output 05/29/17 05/30/17 05/30/17 23:59 07:59 15:59 Intake Total 300 / 300 650 / 650 0 / 0 Output Total 553 / 553 0 / 0 400 / 400 Balance -253 / -253 650 / 650 -400 / -400 Intake: IV Fluids 300 / 300 650 / 650 Ofirmev 1,000 mg/100 ml 1,000 100 / 100 100 / 100 mg In 100 ml @ 400 mls/hr IVPB Q8H [facility] Rx#:[id number] Cipro Premix 400 MG/200 ML 400 200 / 200 mg In 200 ml @ 200 mls/hr IVPB Q12H [facility] Rx#:[id number] Intralipid 20% 250 ML @ 21 mls/ 250 / 250 hr IVPB DAILY@1700 [facility] Rx#: [id number] Flagyl Premix 500 MG/100 ML 500 200 / 200 100 / 100 mg In 100 ml @ 100 mls/hr IVPB Q8H [facility] Rx#:[id number] Oral 0 / 0 0 / 0 0 / 0 Output: Urine 550 / 550 0 / 0 400 / 400 Wound Drainage 3 / 3 Right Lower Abdomen 3 / 3 Other: # Voids 0 Weight 82.621 kg Blood Glucose* 104 108 110 Patient Weight 05/30/17 23:59 Weight 82.621 kg - General physical appearance well developed, no distress - Eyes normal ocular movement - ENT normal mucosa, atraumatic, normocephalic - Neck Neck exam: trachea midline - Respiratory normal respiratory effort, clear to auscultation - Cardiovascular Cardiovascular exam: Present: RRR - Abdomen Abdomen: Present: bowel sounds present (hypoactive), soft, tender (Expected postoperative tenderness), wound (ostomy is pink and moist with small amount of soft, brown stool noted in the bag, no flatus appreciated; Pigtail drain in RLQ with scant amount of serous drainage noted) - Incision Incision: Present: clean and dry, intact - Neurologic CN 2-12 grossly intact - Musculoskeletal normal gait, normal posture - Psychiatric oriented to time, oriented to person, oriented to place, speech is normal, memory intact - Labs 05/30/17 04:00 05/30/17 04:00 Diabetes panel 05/30/17 Range/Units 04:00 Sodium 133 L (136-145) mEq/L Potassium 4.3 (3.5-5.1) mEq/L Chloride 102 (98-107) mEq/L Carbon Dioxide 24 (23-29) mEq/L BUN 17 (6-20) mg/dL Creatinine 0.62 L (0.70-1.30) mg/dL Glucose 111 H (70-105) mg/dL Calcium 9.3 (8.6-10.3) mg/dL Calcium panel 05/30/17 Range/Units 04:00 Calcium 9.3 (8.6-10.3) mg/dL Phosphorus 3.5 (2.7-4.5) mg/dL Pituitary panel 05/30/17 Range/Units 04:00 Sodium 133 L (136-145) mEq/L Potassium 4.3 (3.5-5.1) mEq/L Chloride 102 (98-107) mEq/L Carbon Dioxide 24 (23-29) mEq/L BUN 17 (6-20) mg/dL Creatinine 0.62 L (0.70-1.30) mg/dL Glucose 111 H (70-105) mg/dL Calcium 9.3 (8.6-10.3) mg/dL Adrenal panel 05/30/17 Range/Units 04:00 Sodium 133 L (136-145) mEq/L Potassium 4.3 (3.5-5.1) mEq/L Chloride 102 (98-107) mEq/L Carbon Dioxide 24 (23-29) mEq/L BUN 17 (6-20) mg/dL Creatinine 0.62 L (0.70-1.30) mg/dL Glucose 111 H (70-105) mg/dL Calcium 9.3 (8.6-10.3) mg/dL - VTE Documentation of Mechanical Device: Intermittent pneumatic compression device Consult Discharge Plan - Plan Referrals: Albina Marroquin, KAVIN [Primary Care Provider] - - Attending Attestation For this encounter, I have reviewed the TUNNEL KILN REPAIRER or PA documentation, treatment plan, and medical decision making; and I have had face to face time with this patient.
[2017-05-30] MEDS ORDERED: Clinimix E 5%-20% SOLUTION 2,000 ML with MVI, adult with vitamin K 10 ML IVC SCH (17:00)
[2017-05-30] MEDS: Mirtazapine 15 MG TABLET PO SCH (20:06)
[2017-05-31] MEDS: *HR* Promethazine 25 MG/ML VIAL IVP PRN ×2 (00:26→05:08)
[2017-05-31] MEDS: OXYCODONE Oral CONC 10 MG/0.5 ML ORAL.SYG SL PRN ×3 (00:26→08:51)
[2017-05-31] MEDS: *HR* LORazepam 0.5 MG TABLET PO PRN (01:08)
[2017-05-31] MEDS: Acetaminophen IV 1,000 MG/100 ML INFUS..BTL IVPB SCH (03:00)
[2017-05-31] MEDS: Ipratropium/Albuterol Neb 3 ML IH SCH ×2 (04:08→08:19)
[2017-05-31 04:40] LABS: BUN/Creatinine Ratio 24 (6-26); Blood Urea Nitrogen 17 mg/dL (6-20); Calcium 9.3 mg/dL (8.6-10.3); Carbon Dioxide 26 mEq/L (23-29); Chloride 101 mEq/L (98-107); Glucose 110 mg/dL (70-105); Magnesium 2.1 mg/dL (1.6-2.6); Osmolality,Calculated 274 (280-300); Phosphorous 3.6 mg/dL (2.7-4.5); Potassium 4.2 mEq/L (3.5-5.1); Sodium 131 mEq/L (136-145); eGFR For African Americans > 60 (> 60); eGFR For Non-African Americans > 60 (> 60)
[2017-05-31] MEDS: *HR* Heparin 5,000 UNIT/ML VIAL SQ SCH (05:09)
[2017-05-31] MEDS: MetroNIDAZOLE 500 MG/100 ML 500 MG/100 ML BAG IVPB SCH (06:22)
[2017-05-31 06:48] VITALS: BP 124/83
[2017-05-31] MEDS ORDERED: *HR* Promethazine 25 MG/ML VIAL IVP PRN (08:45)
[2017-05-31] MEDS ORDERED: Metoclopramide 10 MG/2 ML VIAL IVP SCH (08:45)
--- NOTE | 2017-05-31 08:48 | General Surgery Progress Note ---
Date of Encounter: 05/31/17 Time of Encounter: 08:45 - Assessment and Plan (1) Crohn's disease with abscess Current Visit: Yes Status: Chronic continue abx discussed with patient KUB shows dilated loops of small bowel, patient previously had NGT placed and proceeded to pull it out himself shortly after it was placed ambulate shower prn pain control, discussed with patient that some of his gut nonfunction is likely due to high narcotics use, appears patient has postoperative ileus Qualifiers: Gastrointestinal tract location: unspecified location Qualified Code(s): K50.914 - Crohn's disease, unspecified, with abscess (2) Severe protein-calorie malnutrition Current Visit: Yes Status: Chronic continue TPN (3) Tobacco dependence Current Visit: Yes Status: Acute pulmonary toilet IS (4) Depression with anxiety Current Visit: Yes Status: Acute on remeron at bedtime per psych recommendations (5) Ileus Current Visit: Yes Status: Acute patient with what appears to be post op ileus on AXR, this in not an unexpected event postsurgery rare bowel sounds no abdominal distention does have nausea and emesis patient refuses ngt patient states is leaving AMA today check urine culture and CXR Subjective Narrative: patient states his nausea is less and he did have emesis of bile this morning his pain is well controlled he states he is going to leave AMA today Objective Vital Signs - Last 8 Hours Temp Pulse Resp BP Pulse Ox 05/31/17 06:43 98.6 F 85 15 124/83 98 05/31/17 04:06 98.3 F 81 15 143/87 99 Intake and Output 05/30/17 05/31/17 05/31/17 23:59 07:59 15:59 Intake Total 400 / 400 400 / 400 Output Total 900 / 900 600 / 600 Balance -500 / -500 -200 / -200 Intake: IV Fluids 400 / 400 400 / 400 Ofirmev 1,000 mg/100 ml 1,000 100 / 100 100 / 100 mg In 100 ml @ 400 mls/hr IVPB Q8H [facility] Rx#:[id number] Cipro Premix 400 MG/200 ML 400 200 / 200 200 / 200 mg In 200 ml @ 200 mls/hr IVPB Q12H [facility] Rx#:[id number] Flagyl Premix 500 MG/100 ML 500 100 / 100 100 / 100 mg In 100 ml @ 100 mls/hr IVPB Q8H [facility] Rx#:[id number] Oral 0 / 0 0 / 0 Output: Urine 900 / 900 600 / 600 Other: Blood Glucose* 89 118 - General physical appearance well developed, well nourished, no distress, no pain - Eyes PERRL, normal ocular movement - ENT normal mucosa, normocephalic - Neck Neck exam: trachea midline - Respiratory normal expansion, clear to auscultation - Cardiovascular Cardiovascular exam: Present: RRR - Abdomen Abdomen: Present: soft, non tender. Absent: bowel sounds present Additional Comments: colostomy - pink and viable, scant liquid output - Incision Incision: Present: clean and dry, intact - Integumentary no growths - Neurologic CN 2-12 grossly intact - Musculoskeletal normal posture - Psychiatric oriented to time, oriented to person, oriented to place, memory intact - Labs 05/30/17 04:00 05/31/17 04:08 Abnormal lab results WBC 11.7 K/mcL (4.3-11.1) H 05/30/17 04:00 Hgb 11.9 g/dL (12.9-16.9) L 05/30/17 04:00 MCV 77.2 fL (83.0-100.0) L 05/30/17 04:00 MCH 23.6 pg (28.0-33.3) L 05/30/17 04:00 MCHC 30.5 g/dL (31.6-35.5) L 05/30/17 04:00 RDW 17.2 % (11.5-14.5) H 05/30/17 04:00 Nucleated RBCs/100 WBC 0.3 /100 WBC (0) H 05/22/17 10:30 Sodium 131 mEq/L (136-145) L 05/31/17 04:08 Glucose 110 mg/dL (70-105) H 05/31/17 04:08 POC Glucose 118 (58-89) H 05/31/17 07:56 Calculated Osmolality 274 (280-300) L 05/31/17 04:08 Iron 25 mcg/dL (65-175) L 05/24/17 15:20 % Saturation 8 % (20-55) L 05/24/17 15:20 Prealbumin 13.8 mg/dL (17.0-34.0) L 05/18/17 13:11 Vital Signs Temp Pulse Resp BP Pulse Ox 05/31/17 06:43 98.6 F 85 15 124/83 98 05/31/17 04:06 98.3 F 81 15 143/87 99 05/30/17 19:45 98.7 F 77 15 143/84 100 05/30/17 15:55 98.4 F 84 16 122/78 100 05/30/17 12:34 98 F 77 16 123/81 99 Intake and Output 05/30/17 05/31/17 05/31/17 23:59 07:59 15:59 Intake Total 400 / 400 400 / 400 Output Total 900 / 900 600 / 600 Balance -500 / -500 -200 / -200 Intake: IV Fluids 400 / 400 400 / 400 Ofirmev 1,000 mg/100 ml 1,000 100 / 100 100 / 100 mg In 100 ml @ 400 mls/hr IVPB Q8H [facility] Rx#:[id number] Cipro Premix 400 MG/200 ML 400 200 / 200 200 / 200 mg In 200 ml @ 200 mls/hr IVPB Q12H [facility] Rx#:[id number] Flagyl Premix 500 MG/100 ML 500 100 / 100 100 / 100 mg In 100 ml @ 100 mls/hr IVPB Q8H [facility] Rx#:[id number] Oral 0 / 0 0 / 0 Output: Urine 900 / 900 600 / 600 Other: Blood Glucose* 89 118 - VTE Documentation of Mechanical Device: Intermittent pneumatic compression device Consult Discharge Plan - Plan Referrals: Albina Marroquin, ASSEMBLING MOTOR BUILDER [Primary Care Provider] -
[2017-05-31] MEDS: Pantoprazole 40 MG VIAL IVP SCH (08:49)
[2017-05-31] MEDS: Ondansetron 4 MG/2 ML VIAL IVP PRN (08:49)
[2017-05-31 09:05] LABS: Basophils # 0.1 K/mcL (0.0-0.2); Basophils % 0.5 %; Eosinophils # 0.2 K/mcL (0.0-0.6); Hematocrit 38.8 % (37.5-50.1); Hemoglobin 12.7 g/dL (12.9-16.9); Immature Granulocytes % 0.5 % (0-4); Lymphocytes # 2.8 K/mcL (0.6-4.6); Lymphocytes % 25.7 %; Mean Corpuscular HGB Conc 32.7 g/dL (31.6-35.5); Mean Corpuscular Hemoglobin 24.8 pg (28.0-33.3); Mean Corpuscular Volume 75.8 fL (83.0-100.0); Mean Platelet Volume 9.8 fL (9.4-12.4); Monocytes # 0.9 K/mcL (0.0-1.3); Monocytes % 8.5 %; Neutrophils # 6.9 K/mcL (1.6-8.9); Platelet Count 362 K/mcL (140-400); Red Blood Count 5.12 M/mcL (4.19-5.50); Red Cell Distribution Width 18.6 % (11.5-14.5); Segmented Neutrophils % 62.8 %
--- NOTE | 2017-06-01 17:14 | Discharge Summary ---
Date of Encounter: 06/01/17 Time of Encounter: 11:00 (Did not see patient as he left AMA) - Discharge Diagnosis (1) Crohn's disease with abscess Priority: Primary Status: Chronic Qualifiers: Gastrointestinal tract location: unspecified location Qualified Code(s): K50.914 - Crohn's disease, unspecified, with abscess (2) Severe protein-calorie malnutrition Priority: Secondary Status: Chronic (3) Tobacco dependence Priority: Secondary Status: Acute (4) Depression with anxiety Priority: Secondary Status: Acute (5) Ileus Priority: Secondary Status: Acute General Surgery Exam Initial Vital Signs Temp Pulse Resp BP Pulse Ox 98.9 F 93 16 95/60 99 05/18/17 11:50 05/18/17 11:50 05/18/17 11:50 05/18/17 11:50 05/18/17 11:50 - General physical appearance other (Exam was done earlier in the day when I saw patient that morning, no further exam was done as patient left AMA) - Hospital Course Hospital course: Mr. Sam is a 31 year old male who is admitted for abdominal wall abscess associated with Crohn's disease. Patient underwent an open ileocecectomy with primary anastomosis and a sigmoid resection with colostomy. Postoperatively patient was started on TPN. Throughout hospital stay patient was on Cipro and Flagyl antibiotics. Throughout hospital stay patient required high doses of narcotics to control his pain Patient experienced prolonged ileus after surgery. Patient left AMA on , 05/31/2017 - Time Spent with Patient Total time spent providing and/or coordinating discharge services: - Discharge Medications Home Medications: Ciprofloxacin [Cipro] 500 mg PO BID 05/18/17 [History] metroNIDAZOLE [Flagyl] 500 mg PO BID 05/18/17 [History] Allergies/Adverse Reactions: 3 Allergy/AdvReac Type Severity Reaction Status Date / Time NSAIDS (Non-Steroidal Allergy Severe Abdominal Verified 05/19/17 10:08 Anti-Inflamma Pain Penicillins [PCN] Allergy Hives Verified 05/18/17 12:07 Date of admission: 05/18/17 16:32 Primary care physician: Albina Marroquin CNP Consults: 05/18/17 12:18 Consult to Nutrition [CONS] Stat Comment: Consulting Provider: NUTRITION Reason for Dietary Consult: TPN Start and Manage Other:: stat consult per for TPN and supplements. 05/18/17 12:19 Consult to Invasive Line Access Team [CONS] Routine Reason for Consult: Picc Line Insertion Line Type: PICC 05/18/17 12:49 Consult to Nutrition [CONS] Stat Comment: Consulting Provider: NUTRITION Reason for Dietary Consult: TPN Start and Manage 05/22/17 08:35 Consult to Psychiatry [CONS] Routine Consulting Provider: Psychiatry [place] Reason for Consult: depression, multiple major life changes, drug abuse (mom states injects oxycodone) Time Notified: 08:00 Call Completed: Yes 05/22/17 09:40 Consult to Respiratory Therapy [CONS] Stat Reason for Consult: scheduled duonebs, aggressive pulm toileting Time Notified: 09:41 Call Completed: Yes 05/22/17 14:24 Consult to Wound Care [CONS] Routine Reason for Consult: new colostomy Call Completed: No 05/24/17 11:52 Consult to Fiberglass Fabricator [CONS] Routine Reason for SW Consult: pt will need home care for new colostomy Discharging clinician: Lea Ellison (Patient left AMA) Anticipated date of discharge: 05/31/17 - Impressions ITS Impressions Chest X-Ray 05/22/17 10:13 IMPRESSION: 1. Mild right hemidiaphragm elevation and right basilar atelectasis. 2. Otherwise, no acute cardiopulmonary abnormality. 3. Small amount of free intraperitoneal gas below the left hemidiaphragm, consistent with provided history of recent abdominal surgery. D/ / Lorne Santiago MD / Lorne Santiago MD Interpreting Provider: Lorne Santiago MD X-Ray 05/28/17 07:38 IMPRESSION: 1. Abnormal distended loops of small bowel concerning for developing small bowel obstruction 2. Percutaneous drainage catheter projects over the right lower quadrant D/ / 05/28/2017 08:20:16 Simone Gerber MD / laura Interpreting Provider: Simone Gerber MD X-Ray 05/29/17 12:19 IMPRESSION: Nasogastric tube in good position. Persistent small bowel dilation, without significant change at this time D/ / Terence Henderson MD / Terence Henderson MD Interpreting Provider: Terence Henderson MD Abdomen X-Ray 05/30/17 13:45 IMPRESSION: Persistent dilatation of loops of bowel in the left upper quadrant and mid abdomen suggesting partial obstruction or ileus. Continued follow-up suggested. Small bore catheter in the right lower pelvis. D/ / 05/30/2017 14:16:32 Melanie Loaiza MD / jason Interpreting Provider: Melanie Loaiza MD Chest X-Ray 05/31/17 08:51 IMPRESSION: Low lung volumes. Minimal right basilar atelectasis. The right PICC remains. D/ / 05/31/2017 10:32:50 Beka Mock MD / Danielle Skaggs Interpreting Provider: Beka Mock MD - Patient Status Disposition: Left Against Medical Advice - Discharge Instructions Follow Up With: Lea Ellison MD [Partnered Physician] - 06/01/17 3:05 pm - Diet and Activity Activity: increase activity as tolerated (No lifting more than 10 pounds for 6 weeks) Diet: other (Cannot recommend a diet as patient is not tolerating a diet, not even tolerating clears consistently)
== END 2017-05-31 10:18 | disposition left against medical advice (07) | DRG 231 ==
LOC: 3ANU
PROVIDERS: ADMIT Surgery; ATTEND Surgery